=== PATIENT | female | born 1935 | race Caucasian/White ===

== ENCOUNTER 2022-03-19 08:30 | Outpatient (RCR) | payer MEDICARE, SELFPAY ==
[2022-02-26 08:09] VITALS: BP 149/84; PULSE 66; TEMP 36.4
--- NOTE | 2022-02-26 13:48 | HP.PCM_ITS ---
History of Present Illness Date of Service: 02/26/22 Chief Complaint: Ulceration of the left lateral calf History of Wound: This is an 86-year-old female who presents with an ulceration of the left lateral calf. It is located in the left lateral supra-malleolar area. The patient is a resident of [facility] in [place], [place]. She arrived today unaccompanied. She is very pleasant, conversant, and cooperative. However, she suffers from dementia and is somewhat confused. She is a poor historian with respect to her prior health. Fortunately, some records accompany her, sending some light on her past medical history. According the patient, the ulceration on her left lower extremity has been present for approximately 3 weeks. She denies any traumatic events. She states that the ulceration is painful. She claims to sleep on a flat mattress at night. However, she is not very active, and spends a great deal of each day sitting. The accompanying medical records suggest that she has recently undergone a venous duplex examination, and that she is currently being treated with Augmentin. However, this cannot be substantiated. We will seek confirmation. 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 Home Medications Calcium 600 + D(3) See Rx Instructions .ROUTE .COMPLEX 02/26/22 [History Last Taken Unknown] acetaminophen 650 mg PO Q4H PRN 02/26/22 [History Last Taken Unknown] albuterol mcg INHALATION 02/26/22 [History Last Taken Unknown] anastrozole 1 mg PO DAILY 02/26/22 [History Last Taken Unknown] donepezil 10 mg PO QHS 02/26/22 [History Last Taken Unknown] donepezil 10 mg PO QHS 02/26/22 [History Last Taken Unknown] famotidine 20 mg PO BID 02/26/22 [History Last Taken Unknown] ferrous sulfate [FeroSul] 325 mg PO DAILY 02/26/22 [History Last Taken Unknown] fluticasone propion-salmeterol [Advair Diskus] 1 inh INHALATION BID 02/26/22 [History Last Taken Unknown] lovastatin 20 mg PO QPM 02/26/22 [History Last Taken Unknown] metoprolol succinate 25 mg PO DAILY 02/26/22 [History Last Taken Unknown] pramipexole 1 mg PO BID 02/26/22 [History Last Taken Unknown] warfarin 2.5 mg PO DAILY 02/26/22 [History Last Taken Unknown] Vital Signs Vital Signs Vital Signs: 02/26/22 08:09 Temperature 97.6 F L Temperature Source Temporal Pulse Rate 66 Blood Pressure 149/84 H Blood Pressure Mean 105 Blood Pressure Source Monitor Blood Pressure Position Semi-Fowlers Blood Pressure Location Left Arm Physical Exam Const alert, no apparent distress and well nourished Constitutional Narrative: The patient is pleasant, conversant, and cooperative. She is somewhat confused, uncertain as to the date and her place of residence. General Appearance: cooperative, comfortable, well kempt and well developed Orientation / Consciousness: awake and confused Nutritional Appearance: obese HEENT normocephalic, head/scalp atraumatic and hearing grossly normal bilaterally Head and Scalp: normal to inspection, normocephalic and atraumatic External Ear: external ears normal Eyes PERRL and EOMs intact bilaterally General Eye: normal appearance of both eyes Resp normal respiratory effort, normal air movement, no retractions and no use of accessory muscles Effort and Inspection: able to speak in complete sentences Extremity no calf tenderness General Extremity: Negative for clubbing or cyanosis Skin Wound Narrative: Swelling and edema are noted in the lower extremities bilaterally. A clustered ulceration is noted in the left lateral supramalleolar area. The ulceration demonstrates eschar and gangrenous/nonviable tissue, as well as significant bioburden. There is a moderate amount of surrounding erythema. Neuro CN's II-XII intact bilaterally, moves all extremities and no focal motor deficits Psych Appearance: grossly normal and appropriate Attitude: calm Activity / Motor Behavior: appropriate eye contact Speech: normal speech Mood & Affect: euthymic mood Thought Process: normal thought process Thought Content: normal thought content Attention / Concentration: attention grossly intact Debridement Note Debridement Note Wound debrided: Left lateral supramalleolar area Laterality: Left Type of Debridement: Excisional debridement Anesthesia Used: 5% Lidocaine Gel Depth: Down to and including healthy tissue and in the subcutaneous layer Percentage of wound debrided: 100 Instrument Used: 5mm curette Tissue Removed: Bioburden and nonviable/necrotic tissue Severity: Fat Layer Exposed Amount of bleeding with debridement: Mild Bleeding Controlled with: Compression and gauze Patient tolerated procedure: Patient tolerated procedure well Post-Debridement Measurements and Additional Note: Post-Debridement Measurements/Treatment - Nurse 1 - General Ulcer Assessment Start: 02/26/22 08:06 Freq: Status: Active Protocol: WC.LOWEXT Activity Type Activity Date Activity User E-Sign Co-Sign Detail Recorded Client Recorded Date Recorded By Document 02/26/22 08:09 LUIZA [id number] 02/26/22 08:20 KR Document 02/26/22 08:21 KR [id number] 02/26/22 08:25 KR 02/26/22 02/26/22 08:09 08:21 - Today's Visit Information Type of service Initial Visit Arrival Mode Ambulatory, Walker Patient Identification Verified (Name & Yes ) Vital Signs Temperature (97.8 F-99.1 F) 97.6 F L Temperature Source Temporal Pulse Rate (60-100) 66 Pulse Location Monitor Blood Pressure (90/60-120/80) 149/84 H Blood Pressure Mean 105 Source Monitor Position Semi-Fowlers Blood Pressure Location Left Arm History Since Last Visit- (Skip if this is Patient's initial visit) Have you changed medications since your No last visit? Any new allergies or adverse reactions No Had a fall/change in ADL's that may No increase risk of falls Signs or symptoms of abuse and/or No neglect since last visit Have you been in the hospital since your No last visit? Has dressing in place as prescribed No Has compression in place as prescribed N/A Has offloadiing in place as prescribed N/A Left Footwear Regular Shoe Right Footwear Regular Shoe Pain Scale: 0-10 Numeric Is Patient Pain Free? Yes Yes Lower Extremity Assessment/ Foot Assessment/ Toe Nail Assessment Left -Polpliteal Pulses Palpable Yes -Popliteal Doppler Multiphasic -Posterior Tibial Palpable Yes -Posterior Tibial Doppler Multiphasic -Dorsalis Pedis Palpable Yes -Dorsalis Pedis Doppler Multiphasic -Extremity Color Red -Hair Growth on Legs No -Hair Growth on Toes No -Temperature of Extremity Warm -Capillary Refill Less than 3 Seconds -Dependent Rubor No -Blanched when Elevated N/A -Lipodermatosclerosis No -Other Deformity No -Prior Foot Ulcer No -Charcot Joint No -Prior Amputation No -Thick No -Discolored Yes -Deformed No -Improper Length & Hygeine No Neuropathy Assessment Feet - Top Side and Bottom <Entered> (a) (a) 1 - + 2 - patient has diminished feeling 3 - + 4 - + 5 - + 6 - + WC - Nurse 1 - General Ulcer Measurement Start: 02/26/22 08:06 Freq: Status: Active Protocol: Activity Type Activity Date Activity User E-Sign Co-Sign Detail Recorded Client Recorded Date Recorded By Document 02/26/22 08:09 KR [id number] 02/26/22 08:20 KR 02/26/22 08:09 Wound Center Nurse 1 #1 Left Lower Extremity -Current Size (cm) - Length 4.1 -Current Size (cm) - Width 3.5 -Current Size (cm) - Depth 0.1 -Total Square Cm 14.35 -Exudate Amt Large -Exudate Type Yellow/Green -Wound Margin Distinct, Outline Attached -Necrosis Amt Large (67-100%) -Necrotic Tissue Type Adherent Slough -Texture (Sofiya-wound Skin Appearance) Assessed, Scarring -Moisture (Sofiya-wound Skin Appearance) Assessed, Maceration -Color (Sofiya-wound Skin Appearance) No Abnormality, Assessed -Temperature (Sofiya-wound Skin No Abnormality Appearance) (Pt Warm) -Tenderness on Palpation (Sofiya-wound No Skin Appearance) -Ulcer Cleansing Rinsed/ Irrigated with Saline -Foul Odor after Cleansing No -Anesthetic Used 5% Lidocaine Gel Right Calf (cm) 41.5 Right Ankle (cm) 25 Left Calf (cm) 47.3 Left Ankle (cm) 26.6 WC - Nurse 2 - General Ulcer CM Notes Start: 02/26/22 08:06 Freq: Status: Active Protocol: Activity Type Activity Date Activity User E-Sign Co-Sign Detail Recorded Client Recorded Date Recorded By Document 02/26/22 09:07 PL [id number] 02/26/22 09:09 PL 02/26/22 09:07 Wound Center Nurse 2 #1 Left Lower Extremity -Time 08:40 -Correct Patient Yes -Correct Side, Site, Position Yes -Correct Procedure Yes -Procedure Performed Yes -Type of Procedure Debridement -Clinical Debridement Subcutaneous -Tissue Removed Subcutaneous -Post Debridement (cm) - Length 4.1 -Post Debridement (cm) - Width 3.5 -Post Debridement (cm) - Depth 0.1 -Total Square (Post) (cm) 14.35 -Area of Debridement (cm) - Length 4.1 -Area of Debridement (cm) - Width 3.5 -Total Square (Area) (cm) 14.35 -Tunneling No -Undermining/Tunneling No -Circular Undermining No -Wound/Ulcer Outcome Not Healed -Ulcer Cleansing Rinsed/ Irrigated with Saline -Foul Odor after Cleansing No -Bioengineered Tissue No -Bleeding Controlled with Pressure -Treatment Response Procedure Tolerated Well -Debridement - Subq, 1st 20sq cm Yes Pain Scale: 0-10 Numeric Is Patient Pain Free? Yes WC - Nurse 3 - General Ulcer D/C NN Start: 02/26/22 08:06 Freq: Status: Active Protocol: Activity Type Activity Date Activity User E-Sign Co-Sign Detail Recorded Client Recorded Date Recorded By Document 02/26/22 08:58 ML [id number] 02/26/22 09:00 ML 02/26/22 08:58 Wound Care Nurse 3 #1 Left Lower Extremity -Ulcer Cleansing Rinsed/ Irrigated with Saline -Foul Odor after Cleansing No -Negative Pressure Wound Therapy N/A -Other Dressing hydrogel -Primary Dressing Covered/Secured with Dry Gauze & Roll Gauze, Secured with Tape Right -Tubular Bandage Double Layer -Size of Tubigrip Used Size D -Size D ($) 2 Left -Tubular Bandage Double Layer -Size of Tubigrip Used Size D -Size D ($) 2 Pain Scale: 0-10 Numeric Is Patient Pain Free? Yes WC - Visit Discharge Discharge Condition Stable Ambulatory Status Walker Medication Reconcilliation completed & No provided to patient/care provider Clinical Summary of Care Provided Yes Assessment/Plan Assessment/Plan (1) Non-pressure ulcer of left lower extremity: CODE(S): L97.929 - Non-pressure chronic ulcer of unspecified part of left lower leg with unspecified severity (2) Dementia: CODE(S): F03.90 - Unspecified dementia without behavioral disturbance (3) Diabetes mellitus: CODE(S): E11.9 - Type 2 diabetes mellitus without complications (4) History of breast cancer: CODE(S): Z85.3 - Personal history of malignant neoplasm of breast (5) Obesity: CODE(S): E66.9 - Obesity, unspecified (6) Hypertension: CODE(S): I10 - Essential (primary) hypertension (7) Atrial fibrillation: CODE(S): I48.91 - Unspecified atrial fibrillation (8) Chronic anticoagulation: CODE(S): Z79.01 - care home (current) use of anticoagulants (9) COPD (chronic obstructive pulmonary disease): CODE(S): J44.9 - Chronic obstructive pulmonary disease, unspecified (10) Osteoarthritis: CODE(S): M19.90 - Unspecified osteoarthritis, unspecified site (11) Osteoporosis: CODE(S): M81.0 - Age-related osteoporosis without current pathological fracture (12) Pacemaker: CODE(S): Z95.0 - Presence of cardiac pacemaker (13) Hyperlipidemia: CODE(S): E78.5 - Hyperlipidemia, unspecified (14) 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 Its etiology is uncertain, and the patient denies recent trauma to the area. There is noted to be is associated swelling and edema. Patient has pre-existing medical problems, which have been listed above. As initial treatment, patient has been instructed to elevate her lower extremities is much as possible. Elevation is to be to heart level, or higher. This is to be accomplished during sleeping hours, as well as during daytime hours. She has been advised to refrain from prolonged idle sitting. Activity has been encouraged, though enhancement of activity is unlikely to a significant degree, as the patient requires a walker for ambulation. Swab cultures have been obtained for aerobic and anaerobic bacterial growth. We will await the results of these cultures. We are to use collagenase Santyl topically to the ulceration, which will be applied on a daily basis. Compression is to be implemented by means of Tubigrip's, striving for 20 to 30 mmHg compression which will be applied on a daily basis. Patient is to return in 1 week for reassessment. We will consider obtaining laboratory studies and other possible diagnostic tests upon the patient's return visit. Total time: 65 minutes
[2022-03-05 08:42] VITALS: BP 140/61; PULSE 80; TEMP 35.9
--- NOTE | 2022-03-05 09:36 | HP.PCM_ITS ---
History of Present Illness Date of Service: 03/05/22 Chief Complaint: Ulceration of the left lateral calf History of Wound: This is an 86-year-old female who presented with an ulceration of the left lateral calf. It is located in the left lateral supra-malleolar area. The patient is a resident of [facility] in [place], [place]. She is very pleasant, conversant, and cooperative. However, she suffers from dementia and is somewhat confused. She is a poor historian with respect to her prior health. Fortunately, some records accompanied her, revealing elements of her past medical history. According the patient, the ulceration on her left lower extremity had been present for approximately 3 weeks. She denied any traumatic events. She stated that the ulceration was painful. She claims to sleep on a flat mattress at night. However, she is not very active, and spends a great deal of each day sitting. The accompanying medical records suggest that she has recently undergone a venous duplex examination, results of which revealed no evidence of acute deep vein thrombosis, though valvular competence was not assessed. [facility] Medical History (Updated 03/05/22 @ 09:[address] 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 Wound infection Home Medications Calcium 600 + D(3) See Rx Instructions .ROUTE .COMPLEX 02/26/22 [History Last Taken Unknown] acetaminophen 650 mg PO Q4H PRN 02/26/22 [History Last Taken Unknown] albuterol mcg INHALATION 02/26/22 [History Last Taken Unknown] anastrozole 1 mg PO DAILY 02/26/22 [History Last Taken Unknown] donepezil 10 mg PO QHS 02/26/22 [History Last Taken Unknown] donepezil 10 mg PO QHS 02/26/22 [History Last Taken Unknown] famotidine 20 mg PO BID 02/26/22 [History Last Taken Unknown] ferrous sulfate [FeroSul] 325 mg PO DAILY 02/26/22 [History Last Taken Unknown] fluticasone propion-salmeterol [Advair Diskus] 1 inh INHALATION BID 02/26/22 [History Last Taken Unknown] lovastatin 20 mg PO QPM 02/26/22 [History Last Taken Unknown] metoprolol succinate 25 mg PO DAILY 02/26/22 [History Last Taken Unknown] pramipexole 1 mg PO BID 02/26/22 [History Last Taken Unknown] tramadol 50 mg PO Q8H PRN 02/26/22 [History Last Taken Unknown] warfarin 2.5 mg PO DAILY 02/26/22 [History Last Taken Unknown] Vital Signs Vital Signs Vital Signs: 03/05/22 08:42 Temperature 96.7 F L Temperature Source Temporal Pulse Rate 80 Blood Pressure 140/61 H Blood Pressure Mean 87 Blood Pressure Source Monitor Blood Pressure Position Sitting Blood Pressure Location Left Arm Physical Exam Const alert, no apparent distress and well nourished General Appearance: cooperative, comfortable, well kempt and well developed Orientation / Consciousness: awake and confused HEENT normocephalic and head/scalp atraumatic Head and Scalp: normal to inspection, normocephalic and atraumatic External Ear: external ears normal Eyes PERRL and EOMs intact bilaterally General Eye: normal appearance of both eyes Resp normal respiratory effort, normal air movement, no retractions and no use of accessory muscles Effort and Inspection: able to speak in complete sentences Extremity no calf tenderness General Extremity: Negative for clubbing or cyanosis Skin Wound Narrative: The wound on the left lateral supramalleolar area persists. Slight periwound erythema is noted. Dimensions are documented elsewhere. Areas of nonviable tissue persist, though much less than noted at the patient's initial visit. There are areas of pink, healthy granulation tissue. Slight swelling and edema are noted in the patient's left lower extremity. Neuro CN's II-XII intact bilaterally and moves all extremities Sensorium / Orientation: awake and alert Psych Appearance: grossly normal and appropriate Attitude: calm Activity / Motor Behavior: appropriate eye contact Speech: normal speech Mood & Affect: euthymic mood Thought Process: normal thought process Thought Content: normal thought content Attention / Concentration: attention grossly intact Debridement Note Debridement Note Wound debrided: Left lateral supramalleolar area Laterality: Left Type of Debridement: Excisional debridement Anesthesia Used: 5% Lidocaine Gel Depth: Down to and including healthy tissue and in the subcutaneous layer Percentage of wound debrided: 100 Instrument Used: 5mm curette Tissue Removed: Bioburden and nonviable tissue Severity: Fat Layer Exposed Amount of bleeding with debridement: Mild Bleeding Controlled with: Compression and gauze Patient tolerated procedure: Patient tolerated procedure well Post-Debridement Measurements and Additional Note: Post-Debridement Measurements/Treatment WC - Nurse 1 - General Ulcer Assessment Start: 02/26/22 08:06 Freq: Status: Active Protocol: LAKSHMI Activity Type Activity Date Activity User E-Sign Co-Sign Detail Recorded Client Recorded Date Recorded By Document 02/26/22 08:09 KR [id number] 02/26/22 08:20 KR Document 02/26/22 08:21 KR [id number] 02/26/22 08:25 KR Document 03/05/22 08:42 KR [id number] 03/05/22 08:44 KR 02/26/22 02/26/22 03/05/22 08:09 08:21 08:42 - Today's Visit Information Type of service Initial Visit Follow-up Visit (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 Any new allergies or adverse reactions No No Had a fall/change in ADL's that may No No increase risk of falls Signs or symptoms of abuse and/or No No neglect since last visit Have you been in the hospital since your No No last visit? Has dressing in place as prescribed No No Has compression in place as prescribed N/A N/A Has offloadiing in place as prescribed N/A N/A Experienced any changes in pain level or No management Left Footwear Regular Shoe Regular Shoe Right Footwear Regular Shoe Regular Shoe Pain Scale: 0-10 Numeric Is Patient Pain Free? Yes Yes Yes Lower Extremity Assessment/ Foot Assessment/ Toe Nail Assessment Left -Polpliteal Pulses Palpable Yes -Popliteal Doppler Multiphasic -Posterior Tibial Palpable Yes -Posterior Tibial Doppler Multiphasic -Dorsalis Pedis Palpable Yes -Dorsalis Pedis Doppler Multiphasic -Extremity Color Red -Hair Growth on Legs No -Hair Growth on Toes No -Temperature of Extremity Warm -Capillary Refill Less than 3 Seconds -Dependent Rubor No -Blanched when Elevated N/A -Lipodermatosclerosis No -Other Deformity No -Prior Foot Ulcer No -Charcot Joint No -Prior Amputation No -Thick No -Discolored Yes -Deformed No -Improper Length & Hygeine No Neuropathy Assessment Feet - Top Side and Bottom <Entered> (a) (a) 1 - + 2 - patient has diminished feeling 3 - + 4 - + 5 - + 6 - + WC - Nurse 1 - General Ulcer Measurement Start: 02/26/22 08:06 Freq: Status: Active Protocol: Activity Type Activity Date Activity User E-Sign Co-Sign Detail Recorded Client Recorded Date Recorded By Document 02/26/22 08:09 LUIZA [id number] 02/26/22 08:20 KR Document 03/05/22 08:42 KR [id number] 03/05/22 08:44 KR 02/26/22 03/05/22 08:09 08:42 Wound Center Nurse 1 #1 Left Lower Extremity -Current Size (cm) - Length 4.1 4.6 -Current Size (cm) - Width 3.5 4.3 -Current Size (cm) - Depth 0.1 0.2 -Total Square Cm 14.35 19.78 -Exudate Amt Large Medium -Exudate Type Yellow/Green Serosanguineous -Wound Margin Distinct, Distinct, Outline Outline Attached Attached -Granulation Amt Medium (34-66%) -Granulation Quality Red -Necrosis Amt Large (67-100%) Small (1-33%) -Necrotic Tissue Type Adherent Slough Adherent Slough -Texture (Sofiya-wound Skin Appearance) Assessed, Assessed, Scarring Scarring -Moisture (Sofiya-wound Skin Appearance) Assessed, No Abnormality, Maceration Assessed -Color (Sofiya-wound Skin Appearance) No Abnormality, No Abnormality, Assessed Assessed -Temperature (Sofiya-wound Skin No Abnormality No Abnormality Appearance) (Pt Warm) (Pt Warm) -Tenderness on Palpation (Sofiya-wound No Skin Appearance) -Ulcer Cleansing Rinsed/ Rinsed/ Irrigated with Irrigated with Saline Saline -Foul Odor after Cleansing No -Anesthetic Used 5% Lidocaine 4% Lidocaine Gel Solution,5% Lidocaine Gel Right Calf (cm) 41.5 Right Ankle (cm) 25 Left Calf (cm) 47.3 Left Ankle (cm) 26.6 WC - Nurse 2 - General Ulcer CM Notes Start: 02/26/22 08:06 Freq: Status: Active Protocol: Activity Type Activity Date Activity User E-Sign Co-Sign Detail Recorded Client Recorded Date Recorded By Document 02/26/22 09:07 PL [id number] 02/26/22 09:09 PL 02/26/22 09:07 Wound Center Nurse 2 -Time 08:40 -Correct Patient Yes -Correct Side, Site, Position Yes -Correct Procedure Yes -Procedure Performed Yes -Type of Procedure Debridement -Clinical Debridement Subcutaneous -Tissue Removed Subcutaneous -Post Debridement (cm) - Length 4.1 -Post Debridement (cm) - Width 3.5 -Post Debridement (cm) - Depth 0.1 -Total Square (Post) (cm) 14.35 -Area of Debridement (cm) - Length 4.1 -Area of Debridement (cm) - Width 3.5 -Total Square (Area) (cm) 14.35 -Tunneling No -Undermining/Tunneling No -Circular Undermining No -Wound/Ulcer Outcome Not Healed -Ulcer Cleansing Rinsed/ Irrigated with Saline -Foul Odor after Cleansing No -Bioengineered Tissue No -Bleeding Controlled with Pressure -Treatment Response Procedure Tolerated Well -Debridement - Subq, 1st 20sq cm Yes Pain Scale: 0-10 Numeric Is Patient Pain Free? Yes - Nurse 3 - General Ulcer D/C NN Start: 02/26/22 08:06 Freq: Status: Active Protocol: Activity Type Activity Date Activity User E-Sign Co-Sign Detail Recorded Client Recorded Date Recorded By Document 02/26/22 08:58 ML [id number] 02/26/22 09:00 ML 02/26/22 08:58 Wound Care Nurse 3 #1 Left Lower Extremity -Ulcer Cleansing Rinsed/ Irrigated with Saline -Foul Odor after Cleansing No -Negative Pressure Wound Therapy N/A -Other Dressing hydrogel -Primary Dressing Covered/Secured with Dry Gauze & Roll Gauze, Secured with Tape Right -Tubular Bandage Double Layer -Size of Tubigrip Used Size D -Size D ($) 2 Left -Tubular Bandage Double Layer -Size of Tubigrip Used Size D -Size D ($) 2 Pain Scale: 0-10 Numeric Is Patient Pain Free? Yes WC - Visit Discharge Discharge Condition Stable Ambulatory Status Walker Medication Reconcilliation completed & No provided to patient/care provider Clinical Summary of Care Provided Yes Lab / Micro Data Micro: Microbiology 02/26/22 08:50 Wound Abcess - Leg, Left Gram Stain - Final 02/26/22 08:50 Wound Abcess - Leg, Left Wound Culture - Final Proteus mirabilis Enterococcus faecalis 02/26/22 08:50 Wound Abcess - Leg, Left Anaerobic Culture - Preliminary Checking for anaerobes, further studies to follow. 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: CODE(S): Z96.653 - Presence of artificial knee joint, bilateral (4) Hyperlipidemia: CODE(S): E78.5 - Hyperlipidemia, unspecified (5) Pacemaker: CODE(S): Z95.0 - Presence of cardiac pacemaker (6) Osteoporosis: CODE(S): M81.0 - Age-related osteoporosis without current pathological fracture (7) Osteoarthritis: CODE(S): M19.90 - Unspecified osteoarthritis, unspecified site (8) COPD (chronic obstructive pulmonary disease): CODE(S): J44.9 - Chronic obstructive pulmonary disease, unspecified (9) Chronic anticoagulation: CODE(S): Z79.01 - jail (current) use of anticoagulants (10) Atrial fibrillation: CODE(S): I48.91 - Unspecified atrial fibrillation (11) Hypertension: CODE(S): I10 - Essential (primary) hypertension (12) Obesity: CODE(S): E66.9 - Obesity, unspecified (13) History of breast cancer: CODE(S): Z85.3 - Personal history of malignant neoplasm of breast (14) Diabetes mellitus: CODE(S): E11.9 - Type 2 diabetes mellitus without complications (15) Dementia: CODE(S): F03.90 - Unspecified dementia without behavioral disturbance PLAN: This is an 86-year-old female who presented with an ulceration on the left lateral supramalleolar area. Its etiology is uncertain, and the patient denies recent trauma to the area. There is noted to be is associated swelling and edema. The patient has pre-existing medical problems, which have been listed above. The patient has been instructed to elevate her lower extremities is much as possible. Elevation is to be to heart level, or higher. This is to be accomplished during sleeping hours, as well as during daytime hours. She has been advised to refrain from prolonged idle sitting. Activity has been encouraged, though enhancement of activity is unlikely to a significant degree, as the patient requires a walker for ambulation. Swab cultures have been obtained for aerobic and anaerobic bacterial growth. Cultures have been positive for Proteus mirabilis and Enterococcus faecalis. The patient has been started on Augmentin 875 mg p.o. every 12 hours for 7 days, and is currently in the midst of her prescription. Her clinical response will be monitored. We are to continue with the use of collagenase Santyl topically to the ulceration, which will be applied on a daily basis. Compression is to be continued by means of Tubigrip's, striving for 20 to 30 mmHg compression which will be applied on a daily basis. The patient is to return in 1 week for reassessment. We will obtain laboratory studies, including a CBC, comprehensive metabolic profile, and a serum prealbumin to assess constitutional factors which may affect wound healing. The patient has been encouraged to assure adequate oral nutritional intake. Total time: 29 minutes
[2022-03-12 08:27] VITALS: BP 137/79; PULSE 88; RESP 20; TEMP 36.6
--- NOTE | 2022-03-12 09:06 | HP.PCM_ITS ---
History of Present Illness Date of Service: 03/12/22 Chief Complaint: Ulceration of the left lateral calf History of Wound: This is an 86-year-old female who presented with an ulceration of the left lateral calf. It is located in the left lateral supra-malleolar area. The patient is a resident of [facility] in [place], [place]. She is very pleasant, conversant, and cooperative. However, she suffers from dementia and is somewhat confused. She is a poor historian with r espect to her prior health. Fortunately, some records accompanied her, revealing elements of her past medical history. According the patient, the ulceration on her left lower extremity had been present for approximately 3 weeks. She denied any traumatic events. She stated that the ulceration was painful. She claims to sleep on a flat mattress at night. However, she is not very active, and spends a great deal of each day sitting. The accompanying medical records suggest that she has recently undergone a venous duplex examination, results of which revealed no evidence of acute deep vein t hrombosis, though valvular competence was not assessed. [facility] Medical History (Updated 03/05/22 @ 09:[address] 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 Wound infection Home Medications Calcium 600 + D(3) See Rx Instructions .Route .COMPLEX 02/26/22 [History Last Taken Unknown] acetaminophen 650 mg tablet 650 mg PO Q4H PRN Pain 02/26/22 [History Last Taken Unknown] albuterol 90 mcg/actuation aerosol inhaler mcg inhalation 02/26/22 [History Last Taken Unknown] anastrozole 1 mg tablet 1 mg PO DAILY 02/26/22 [History Last Taken Unknown] donepezil 10 mg tablet 10 mg PO QHS 02/26/22 [History Last Taken Unknown] donepezil 10 mg tablet 10 mg PO QHS 02/26/22 [History Last Taken Unknown] famotidine 20 mg tablet 20 mg PO BID 02/26/22 [History Last Taken Unknown] ferrous sulfate 325 mg (65 mg iron) tablet (FeroSul) 325 mg PO DAILY 02/26/22 [History Last Taken Unknown] fluticasone 100 mcg-salmeterol 50 mcg/dose blistr powdr for inhalation (Advair Diskus) 1 inh inhalation BID 02/26/22 [History Last Taken Unknown] lovastatin 20 mg tablet 20 mg PO QPM 02/26/22 [History Last Taken Unknown] metoprolol succinate 25 mg capsule sprinkle, ext. release 24 hr 25 mg PO DAILY 02/26/22 [History Last Taken Unknown] pramipexole 1 mg tablet 1 mg PO BID 02/26/22 [History Last Taken Unknown] tramadol 50 mg tablet 50 mg PO Q8H PRN Pain 02/26/22 [History Last Taken Unknown] warfarin 2.5 mg tablet 2.5 mg PO DAILY 02/26/22 [History Last Taken Unknown] Vital Signs Vital Signs Vital Signs: 03/12/22 08:27 Temperature 97.8 F Temperature Source Temporal Pulse Rate 88 Respiratory Rate 20 H Blood Pressure 137/79 H Blood Pressure Mean 98 Blood Pressure Source Monitor Blood Pressure Position Sitting Blood Pressure Location Right Arm Physical Exam Const alert, no apparent distress and well nourished General Appearance: cooperative, comfortable, well kempt and well developed Orientation / Consciousness: awake and confused HEENT normocephalic and head/scalp atraumatic Head and Scalp: normal to inspection, normocephalic and atraumatic External Ear: external ears normal Eyes PERRL and EOMs intact bilaterally General Eye: normal appearance of both eyes Resp normal respiratory effort, normal air movement, no retractions and no use of accessory muscles Effort and Inspection: able to speak in complete sentences Extremity no calf tenderness General Extremity: Negative for clubbing or cyanosis Skin Wound Narrative: The wound on the left lateral supramalleolar area persists. Periwound erythema is noted. Dimensions are documented elsewhere. Areas of nonviable tissue persist. Slight swelling and edema are noted in the patient's left lower extremity. Neuro CN's II-XII intact bilaterally and moves all extremities Sensorium / Orientation: awake and alert Psych Appearance: grossly normal and appropriate Attitude: calm Activity / Motor Behavior: appropriate eye contact Speech: normal speech Mood & Affect: euthymic mood Thought Process: normal thought process Thought Content: normal thought content Attention / Concentration: attention grossly intact Debridement Note Debridement Note Wound debrided: Left lateral supramalleolar area Laterality: Left Type of Debridement: Excisional debridement Anesthesia Used: 5% Lidocaine Gel Depth: Down to and including healthy tissue and in the subcutaneous layer Percentage of wound debrided: 100 Instrument Used: 5mm curette, #15 blade and Forceps Tissue Removed: Bioburden and nonviable tissue Severity: Fat Layer Exposed Amount of bleeding with debridement: Mild Bleeding Controlled with: Compression and gauze Patient tolerated procedure: Patient tolerated procedure well Post-Debridement Measurements and Additional Note: Post-Debridement Measurements/Treatment WC - Nurse 1 - General Ulcer Assessment Start: 02/26/22 08:06 Freq: Status: Active Protocol: LAKSHMI Activity Type Activity Date Activity User E-sign Co-sign Detail Recorded Client Recorded Date Recorded By Document 02/26/22 08:09 KR [id number] 02/26/22 08:20 KR Document 02/26/22 08:21 KR [id number] 02/26/22 08:25 KR Document 03/05/22 08:42 KR [id number] 03/05/22 08:44 KR Document 03/12/22 08:27 DL [id number] 03/12/22 08:42 DL 02/26/22 02/26/22 03/05/22 08:09 08:21 08:42 - Today's Visit Information Type of service Initial Visit Follow-up Visit (Physician/M1A1 [employer] ) Arrival Mode Ambulatory, Walker Walker Patient Identification Verified (Name & Yes Yes ) Vital Signs Temperature (97.8 F-99.1 F) 97.6 F L 96.7 F L Temperature Source Temporal Temporal Pulse Rate (60-100) 66 80 Pulse Location Monitor Monitor Respiratory Rate (12-18) Respiratory rate source Blood Pressure (90/60-120/80) 149/84 H 140/61 H Blood Pressure Mean 105 87 Source Monitor Monitor Position Semi-Fowlers Sitting Blood Pressure Location Left Arm Left Arm History Since Last Visit- (Skip if this is Patient's initial visit) Have you changed medications since your No No last visit? Any new allergies or adverse reactions No No Had a fall/change in ADL's that may No No increase risk of falls Signs or symptoms of abuse and/or No No neglect since last visit Have you been in the hospital since your No No last visit? Has dressing in place as prescribed No No Has compression in place as prescribed N/A N/A Has offloadiing in place as prescribed N/A N/A Experienced any changes in pain level or No management Left Footwear Regular Shoe Regular Shoe Right Footwear Regular Shoe Regular Shoe Pain Scale: 0-10 Numeric Is Patient Pain Free? Yes Yes Yes Lower Extremity Assessment/ Foot Assessment/ Toe Nail Assessment Left -Polpliteal Pulses Palpable Yes -Popliteal Doppler Multiphasic -Posterior Tibial Palpable Yes -Posterior Tibial Doppler Multiphasic -Dorsalis Pedis Palpable Yes -Dorsalis Pedis Doppler Multiphasic -Extremity Color Red -Hair Growth on Legs No -Hair Growth on Toes No -Temperature of Extremity Warm -Capillary Refill Less than 3 Seconds -Dependent Rubor No -Blanched when Elevated N/A -Lipodermatosclerosis No -Other Deformity No -Prior Foot Ulcer No -Charcot Joint No -Prior Amputation No -Thick No -Discolored Yes -Deformed No -Improper Length & Hygeine No Neuropathy Assessment Feet - Top Side and Bottom <Entered> (a) 03/12/22 08:27 WC - Today's Visit Information Type of service Follow-up Visit (Physician/M1A1 [employer] ) Arrival Mode Ambulatory Patient Identification Verified (Name & Yes ) Vital Signs Temperature (97.8 F-99.1 F) 97.8 F Temperature Source Temporal Pulse Rate (60-100) 88 Pulse Location Monitor Respiratory Rate (12-18) 20 H Respiratory rate source Observation Blood Pressure (90/60-120/80) 137/79 H Blood Pressure Mean 98 Source Monitor Position Sitting Blood Pressure Location Right Arm History Since Last Visit- (Skip if this is Patient's initial visit) Have you changed medications since your No last visit? Any new allergies or adverse reactions No Had a fall/change in ADL's that may No increase risk of falls Signs or symptoms of abuse and/or No neglect since last visit Have you been in the hospital since your No last visit? Has dressing in place as prescribed Yes Has compression in place as prescribed Yes Has offloadiing in place as prescribed N/A Experienced any changes in pain level or No management Left Footwear Regular Shoe Right Footwear Regular Shoe Pain Scale: 0-10 Numeric Is Patient Pain Free? Yes Lower Extremity Assessment/ Foot Assessment/ Toe Nail Assessment Left -Polpliteal Pulses Palpable -Popliteal Doppler -Posterior Tibial Palpable -Posterior Tibial Doppler -Dorsalis Pedis Palpable -Dorsalis Pedis Doppler -Extremity Color -Hair Growth on Legs -Hair Growth on Toes -Temperature of Extremity -Capillary Refill -Dependent Rubor -Blanched when Elevated -Lipodermatosclerosis -Other Deformity -Prior Foot Ulcer -Charcot Joint -Prior Amputation -Thick -Discolored -Deformed -Improper Length & Hygeine Neuropathy Assessment Feet - Top Side and Bottom (a) 1 - + 2 - patient has diminished feeling 3 - + 4 - + 5 - + 6 - + WC - Nurse 1 - General Ulcer Measurement Start: 02/26/22 08:06 Freq: Status: Active Protocol: Activity Type Activity Date Activity User E-sign Co-sign Detail Recorded Client Recorded Date Recorded By Document 02/26/22 08:09 KR [id number] 02/26/22 08:20 KR Document 03/05/22 08:42 KR [id number] 03/05/22 08:44 KR Document 03/12/22 08:27 DL [id number] 03/12/22 08:42 DL 02/26/22 03/05/22 03/12/22 08:09 08:42 08:27 Wound Center Nurse 1 #1 Left Lower Extremity -Current Size (cm) - Length 4.1 4.6 4.7 -Current Size (cm) - Width 3.5 4.3 4.6 -Current Size (cm) - Depth 0.1 0.2 0.1 -Total Square Cm 14.35 19.78 21.62 -Photo Taken No -Exudate Amt Large Medium Medium -Exudate Type Yellow/Green Serosanguineous Serosanguineous -Wound Margin Distinct, Distinct, Distinct, Outline Outline Outline Attached Attached Attached -Granulation Amt Medium (34-66%) None Present (0 %) -Granulation Quality Red -Necrosis Amt Large (67-100%) Small (1-33%) Large (67-100%) -Necrotic Tissue Type Adherent Slough Adherent Slough Adherent Slough -Structure Exposed N/A -Texture (Sofiya-wound Skin Appearance) Assessed, Assessed, Localized Edema Scarring Scarring ,Scarring -Moisture (Sofiya-wound Skin Appearance) Assessed, No Abnormality, Dry/Scaly Maceration Assessed -Color (Sofiya-wound Skin Appearance) No Abnormality, No Abnormality, Erythema Assessed Assessed -Temperature (Sofiya-wound Skin No Abnormality No Abnormality No Abnormality Appearance) (Pt Warm) (Pt Warm) (Pt Warm) -Tenderness on Palpation (Sofiya-wound No No Skin Appearance) -Ulcer Cleansing Rinsed/ Rinsed/ Rinsed/ Irrigated with Irrigated with Irrigated with Saline Saline Saline -Foul Odor after Cleansing No No -Anesthetic Used 5% Lidocaine 4% Lidocaine 5% Lidocaine Gel Solution,5% Gel Lidocaine Gel Right Calf (cm) 41.5 Right Ankle (cm) 25 Left Calf (cm) 47.3 45 Left Ankle (cm) 26.6 24.3 - Nurse 2 - General Ulcer CM Notes Start: 02/26/22 08:06 Freq: Status: Active Protocol: Activity Type Activity Date Activity User E-sign Co-sign Detail Recorded Client Recorded Date Recorded By Document 02/26/22 09:07 PL [id number] 02/26/22 09:09 PL Document 03/05/22 11:14 PL [id number] 03/05/22 11:15 PL 02/26/22 03/05/22 09:07 11:14 Wound Center Nurse 2 #1 Left Lower Extremity -Time 08:40 09:20 -Correct Patient Yes Yes -Correct Side, Site, Position Yes Yes -Correct Procedure Yes Yes -Procedure Performed Yes Yes -Type of Procedure Debridement Debridement -Clinical Debridement Subcutaneous Subcutaneous -Tissue Removed Subcutaneous Subcutaneous -Post Debridement (cm) - Length 4.1 3.4 -Post Debridement (cm) - Width 3.5 1.4 -Post Debridement (cm) - Depth 0.1 0.1 -Total Square (Post) (cm) 14.35 4.76 -Area of Debridement (cm) - Length 4.1 3.4 -Area of Debridement (cm) - Width 3.5 1.4 -Total Square (Area) (cm) 14.35 4.76 -Tunneling No No -Undermining/Tunneling No No -Circular Undermining No No -Wound/Ulcer Outcome Not Healed Not Healed -Ulcer Cleansing Rinsed/ Rinsed/ Irrigated with Irrigated with Saline Saline -Foul Odor after Cleansing No No -Bioengineered Tissue No No -Bleeding Controlled with Pressure Pressure -Treatment Response Procedure Procedure Tolerated Well Tolerated Well -Debridement - Subq, 1st 20sq cm Yes Yes Pain Scale: 0-10 Numeric Is Patient Pain Free? Yes Yes - Nurse 3 - General Ulcer D/C NN Start: 02/26/22 08:06 Freq: Status: Active Protocol: Activity Type Activity Date Activity User E-sign Co-sign Detail Recorded Client Recorded Date Recorded By Document 02/26/22 08:58 ML [id number] 02/26/22 09:00 ML Document 03/05/22 11:31 PL [id number] 03/05/22 11:33 PL 02/26/22 03/05/22 08:58 11:31 Wound Care Nurse 3 #1 Left Lower Extremity -Ulcer Cleansing Rinsed/ Soap and Water Irrigated with Saline -Foul Odor after Cleansing No No -Negative Pressure Wound Therapy N/A -Other Dressing hydrogel Hydrogel -Primary Dressing Covered/Secured with Dry Gauze & Dry Gauze & Roll Gauze, Roll Gauze, Secured with Secured with Tape Tape Right -Tubular Bandage Double Layer -Size of Tubigrip Used Size D -Size D ($) 2 Left -Tubular Bandage Double Layer Single Layer -Size of Tubigrip Used Size D Size D -Size D ($) 2 1 Pain Scale: 0-10 Numeric Is Patient Pain Free? 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: CODE(S): Z96.653 - Presence of artificial knee joint, bilateral (4) Hyperlipidemia: CODE(S): E78.5 - Hyperlipidemia, unspecified (5) Pacemaker: CODE(S): Z95.0 - Presence of cardiac pacemaker (6) Osteoporosis: CODE(S): M81.0 - Age-related osteoporosis without current pathological fracture (7) Osteoarthritis: CODE(S): M19.90 - Unspecified osteoarthritis, unspecified site (8) COPD (chronic obstructive pulmonary disease): CODE(S): J44.9 - Chronic obstructive pulmonary disease, unspecified (9) Chronic anticoagulation: CODE(S): Z79.01 - senior living (current) use of anticoagulants (10) Atrial fibrillation: CODE(S): I48.91 - Unspecified atrial fibrillation (11) Hypertension: CODE(S): I10 - Essential (primary) hypertension (12) Obesity: CODE(S): E66.9 - Obesity, unspecified (13) History of breast cancer: CODE(S): Z85.3 - Personal history of malignant neoplasm of breast (14) Diabetes mellitus: CODE(S): E11.9 - Type 2 diabetes mellitus without complications (15) Dementia: CODE(S): F03.90 - Unspecified dementia without behavioral disturbance PLAN: Plan This is an 86-year-old female who presented with an ulceration on the left lateral supramalleolar area. Its etiology is uncertain, and the patient denies recent trauma to the area. There is noted to be is associated swelling and edema. The patient has pre-existing medical problems, which have been listed above. The patient has been instructed to elevate her lower extremities is much as possible. Elevation is to be to heart level, or higher. This is to be accomplished during sleeping hours, as well as during daytime hours. She has been advised to refrain from prolonged idle sitting. Activity has been encouraged, though enhancement of activity is unlikely to a significant degree, as the patient requires a walker for ambulation. Swab cultures were obtained for aerobic and anaerobic bacterial growth. Cultures have been positive for Proteus mirabilis and Enterococcus faecalis. The patient has been started on Augmentin 875 mg p.o. every 12 hours for 7 days, which has now been completed. She presents today with significant periwound erythema, and swab cultures have again been obtained for both aerobic and anaerobic bacterial growth. We will await culture results. We are to transition to the use of Dakin's 0.25% solution, which will be used to moisten gauze, and applied topically to the wound on a daily basis. Compression is to be continued by means of Tubigrip's, striving for 20 to 30 mmHg compression which will be applied on a daily basis. The patient is to return in 1 week for reassessment. Laboratory results have been now obtained, with results as follows: Glucose 84, sodium 139, potassium 4.0, chloride 99, BUN 11, creatinine 0.58, calcium 9.2, albumin 3.8, total protein 6.4, AST 17, ALT 14, white blood count 5.8, hemoglobin 13.2, hematocrit 39.8, platelets 209,000. These laboratory results are from March 06, 2022. The patient has been encouraged to assure adequate oral nutritional intake. Total time: 28 minutes
[2022-03-19 08:49] VITALS: BP 139/85; PULSE 88; RESP 20; TEMP 36.4
--- NOTE | 2022-03-19 09:10 | PCM.WC.HP ---
History of Present Illness Date of Service: 03/19/22 Chief Complaint: Ulceration of the left lateral calf History of Wound: This is an 86-year-old female who presented with an ulceration of the left lateral calf. It is located in the left lateral supra-malleolar area. The patient is a resident of [facility] in [place], [place]. She is very pleasant, conversant, and cooperative. However, she suffers from dementia and is somewhat confused. She is a poor historian with respect to her prior health. Fortunately, some records accompanied her, revealing elements of her past medical history. According the patient, the ulceration on her left lower extremity had been present for approximately 3 weeks. She denied any traumatic events. She stated that the ulceration was painful. She claims to sleep on a flat mattress at night. However, she is not very active, and spends a great deal of each day sitting. The accompanying medical records suggest that she has recently undergone a venous duplex examination, results of which revealed no evidence of acute deep vein thrombosis, though valvular competence was not assessed. 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 Wound infection Home Medications Calcium 600 + D(3) See Rx Instructions .Route .COMPLEX 02/26/22 [History Last Taken Unknown] acetaminophen 650 mg tablet 650 mg PO Q4H PRN Pain 02/26/22 [History Last Taken Unknown] albuterol 90 mcg/actuation aerosol inhaler mcg inhalation 02/26/22 [History Last Taken Unknown] anastrozole 1 mg tablet 1 mg PO DAILY 02/26/22 [History Last Taken Unknown] donepezil 10 mg tablet 10 mg PO QHS 02/26/22 [History Last Taken Unknown] donepezil 10 mg tablet 10 mg PO QHS 02/26/22 [History Last Taken Unknown] famotidine 20 mg tablet 20 mg PO BID 02/26/22 [History Last Taken Unknown] ferrous sulfate 325 mg (65 mg iron) tablet (FeroSul) 325 mg PO DAILY 02/26/22 [History Last Taken Unknown] fluticasone 100 mcg-salmeterol 50 mcg/dose blistr powdr for inhalation (Advair Diskus) 1 inh inhalation BID 02/26/22 [History Last Taken Unknown] lovastatin 20 mg tablet 20 mg PO QPM 02/26/22 [History Last Taken Unknown] metoprolol succinate 25 mg capsule sprinkle, ext. release 24 hr 25 mg PO DAILY 02/26/22 [History Last Taken Unknown] pramipexole 1 mg tablet 1 mg PO BID 02/26/22 [History Last Taken Unknown] tramadol 50 mg tablet 50 mg PO Q8H PRN Pain 02/26/22 [History Last Taken Unknown] warfarin 2.5 mg tablet 2.5 mg PO DAILY 02/26/22 [History Last Taken Unknown] Vital Signs Vital Signs Vital Signs: 03/19/22 08:49 Temperature 97.5 F L Temperature Source Temporal Pulse Rate 88 Respiratory Rate 20 H Blood Pressure 139/85 H Blood Pressure Mean 103 Blood Pressure Source Monitor Physical Exam Const alert, no apparent distress and well nourished Constitutional Narrative: The patient is more lucid today than previous visits. General Appearance: cooperative, comfortable, well kempt and well developed Orientation / Consciousness: awake and confused HEENT normocephalic and head/scalp atraumatic Head and Scalp: normal to inspection, normocephalic and atraumatic External Ear: external ears normal Eyes PERRL and EOMs intact bilaterally General Eye: normal appearance of both eyes Resp normal respiratory effort, normal air movement, no retractions and no use of accessory muscles Effort and Inspection: able to speak in complete sentences Extremity no calf tenderness General Extremity: Negative for clubbing or cyanosis Skin Wound Narrative: The wound on the left lateral supramalleolar area persists. Less periwound erythema is noted than last week. Dimensions are documented elsewhere. Yellowish, nonviable tissue persists within the wound, as well as bioburden. Slight swelling and edema are noted in the patient's left lower extremity. Neuro CN's II-XII intact bilaterally and moves all extremities Sensorium / Orientation: awake and alert Psych Appearance: grossly normal and appropriate Attitude: calm Activity / Motor Behavior: appropriate eye contact Speech: normal speech Mood & Affect: euthymic mood Thought Process: normal thought process Thought Content: normal thought content Attention / Concentration: attention grossly intact Debridement Note Debridement Note Wound debrided: Left lateral calf, supramalleolar region Laterality: Left Type of Debridement: Excisional debridement Anesthesia Used: 5% Lidocaine Gel and Cetacaine Depth: Down to and including healthy tissue and in the subcutaneous layer Percentage of wound debrided: 100 Instrument Used: 5mm curette Severity: Fat Layer Exposed Amount of bleeding with debridement: Mild Bleeding Controlled with: Compression and gauze Patient tolerated procedure: Patient tolerated procedure well Post-Debridement Measurements and Additional Note: Post-Debridement Measurements/Treatment - Nurse 1 - General Ulcer Assessment Start: 02/26/22 08:06 Freq: Status: Active Protocol: LAKSHMI Activity Type Activity Date Activity User E-sign Co-sign Detail Recorded Client Recorded Date Recorded By Document 02/26/22 08:09 KR [id number] 02/26/22 08:20 KR Document 02/26/22 08:21 KR [id number] 02/26/22 08:25 KR Document 03/05/22 08:42 KR [id number] 03/05/22 08:44 KR Document 03/12/22 08:27 DL [id number] 03/12/22 08:42 DL Document 03/19/22 08:49 DL [id number] 03/19/22 08:59 DL 02/26/22 02/26/22 03/05/22 08:09 08:21 08:42 - Today's Visit Information Type of service Initial Visit Follow-up Visit (Physician/RESIDENTIAL FINISH CARPENTER ) Arrival Mode Ambulatory, Walker Walker Transfer Assistance Patient Identification Verified (Name & Yes Yes ) Patient Requires Transmission-Based Precautions Vital Signs Temperature (97.8 F-99.1 F) 97.6 F L 96.7 F L Temperature Source Temporal Temporal Pulse Rate (60-100) 66 80 Pulse Location Monitor Monitor Respiratory Rate (12-18) Respiratory rate source Blood Pressure (90/60-120/80) 149/84 H 140/61 H Blood Pressure Mean 105 87 Source Monitor Monitor Position Semi-Fowlers Sitting Blood Pressure Location Left Arm Left Arm History Since Last Visit- (Skip if this is Patient's initial visit) Have you changed medications since your No No last visit? Any new allergies or adverse reactions No No Had a fall/change in ADL's that may No No increase risk of falls Signs or symptoms of abuse and/or No No neglect since last visit Have you been in the hospital since your No No last visit? Has dressing in place as prescribed No No Has compression in place as prescribed N/A N/A Has offloadiing in place as prescribed N/A N/A Experienced any changes in pain level or No management Left Footwear Regular Shoe Regular Shoe Right Footwear Regular Shoe Regular Shoe Pain Scale: 0-10 Numeric Is Patient Pain Free? Yes Yes Yes Lower Extremity Assessment/ Foot Assessment/ Toe Nail Assessment Left -Polpliteal Pulses Palpable Yes -Popliteal Doppler Multiphasic -Posterior Tibial Palpable Yes -Posterior Tibial Doppler Multiphasic -Dorsalis Pedis Palpable Yes -Dorsalis Pedis Doppler Multiphasic -Extremity Color Red -Hair Growth on Legs No -Hair Growth on Toes No -Temperature of Extremity Warm -Capillary Refill Less than 3 Seconds -Dependent Rubor No -Blanched when Elevated N/A -Lipodermatosclerosis No -Other Deformity No -Prior Foot Ulcer No -Charcot Joint No -Prior Amputation No -Thick No -Discolored Yes -Deformed No -Improper Length & Hygeine No Neuropathy Assessment Feet - Top Side and Bottom <Entered> (a) 03/12/22 03/19/22 08:27 08:49 WC - Today's Visit Information Type of service Follow-up Visit Follow-up Visit (Physician/RESIDENTIAL FINISH CARPENTER (Physician/RESIDENTIAL FINISH CARPENTER ) ) Arrival Mode Ambulatory Ambulatory, Walker Transfer Assistance None Patient Identification Verified (Name & Yes Yes ) Patient Requires Transmission-Based No Precautions Vital Signs Temperature (97.8 F-99.1 F) 97.8 F 97.5 F L Temperature Source Temporal Temporal Pulse Rate (60-100) 88 88 Pulse Location Monitor Monitor Respiratory Rate (12-18) 20 H 20 H Respiratory rate source Observation Observation Blood Pressure (90/60-120/80) 137/79 H 139/85 H Blood Pressure Mean 98 103 Source Monitor Monitor Position Sitting Blood Pressure Location Right Arm History Since Last Visit- (Skip if this is Patient's initial visit) Have you changed medications since your No No last visit? Any new allergies or adverse reactions No No Had a fall/change in ADL's that may No No increase risk of falls Signs or symptoms of abuse and/or No No neglect since last visit Have you been in the hospital since your No No last visit? Has dressing in place as prescribed Yes Yes Has compression in place as prescribed Yes No Has offloadiing in place as prescribed N/A N/A Experienced any changes in pain level or No No management Left Footwear Regular Shoe Right Footwear Regular Shoe Regular Shoe Pain Scale: 0-10 Numeric Is Patient Pain Free? Yes Yes Lower Extremity Assessment/ Foot Assessment/ Toe Nail Assessment Left -Polpliteal Pulses Palpable -Popliteal Doppler -Posterior Tibial Palpable -Posterior Tibial Doppler -Dorsalis Pedis Palpable -Dorsalis Pedis Doppler -Extremity Color -Hair Growth on Legs -Hair Growth on Toes -Temperature of Extremity -Capillary Refill -Dependent Rubor -Blanched when Elevated -Lipodermatosclerosis -Other Deformity -Prior Foot Ulcer -Charcot Joint -Prior Amputation -Thick -Discolored -Deformed -Improper Length & Hygeine Neuropathy Assessment Feet - Top Side and Bottom (a) 1 - + 2 - patient has diminished feeling 3 - + 4 - + 5 - + 6 - + WC - Nurse 1 - General Ulcer Measurement Start: 02/26/22 08:06 Freq: Status: Active Protocol: Activity Type Activity Date Activity User E-sign Co-sign Detail Recorded Client Recorded Date Recorded By Document 02/26/22 08:09 KR [id number] 02/26/22 08:20 KR Document 03/05/22 08:42 KR [id number] 03/05/22 08:44 KR Document 03/12/22 08:27 DL [id number] 03/12/22 08:42 DL Document 03/19/22 08:49 DL [id number] 03/19/22 08:59 DL 02/26/22 03/05/22 03/12/22 08:09 08:42 08:27 Wound Center Nurse 1 #1 Left Lower Extremity -Current Size (cm) - Length 4.1 4.6 4.7 -Current Size (cm) - Width 3.5 4.3 4.6 -Current Size (cm) - Depth 0.1 0.2 0.1 -Total Square Cm 14.35 19.78 21.62 -Photo Taken No -Exudate Amt Large Medium Medium -Exudate Type Yellow/Green Serosanguineous Serosanguineous -Wound Margin Distinct, Distinct, Distinct, Outline Outline Outline Attached Attached Attached -Granulation Amt Medium (34-66%) None Present (0 %) -Granulation Quality Red -Necrosis Amt Large (67-100%) Small (1-33%) Large (67-100%) -Necrotic Tissue Type Adherent Slough Adherent Slough Adherent Slough -Structure Exposed N/A -Texture (Sofiya-wound Skin Appearance) Assessed, Assessed, Localized Edema Scarring Scarring ,Scarring -Moisture (Sofiya-wound Skin Appearance) Assessed, No Abnormality, Dry/Scaly Maceration Assessed -Color (Sofiya-wound Skin Appearance) No Abnormality, No Abnormality, Erythema Assessed Assessed -Temperature (Sofiya-wound Skin No Abnormality No Abnormality No Abnormality Appearance) (Pt Warm) (Pt Warm) (Pt Warm) -Tenderness on Palpation (Sofiya-wound No No Skin Appearance) -Ulcer Cleansing Rinsed/ Rinsed/ Rinsed/ Irrigated with Irrigated with Irrigated with Saline Saline Saline -Foul Odor after Cleansing No No -Anesthetic Used 5% Lidocaine 4% Lidocaine 5% Lidocaine Gel Solution,5% Gel Lidocaine Gel #2 Left Knee -Current Size (cm) - Length -Current Size (cm) - Width -Current Size (cm) - Depth -Total Square Cm -Photo Taken -Exudate Amt -Exudate Type -Wound Margin -Granulation Amt -Granulation Quality -Necrosis Amt -Necrotic Tissue Type -Structure Exposed -Texture (Sofiya-wound Skin Appearance) -Moisture (Sofiya-wound Skin Appearance) -Color (Sofiya-wound Skin Appearance) -Temperature (Sofiya-wound Skin Appearance) -Tenderness on Palpation (Sofiya-wound Skin Appearance) -Ulcer Cleansing -Foul Odor after Cleansing -Anesthetic Used Right Calf (cm) 41.5 Right Ankle (cm) 25 Left Calf (cm) 47.3 45 Left Ankle (cm) 26.6 24.3 03/19/22 08:49 Wound Center Nurse 1 #1 Left Lower Extremity -Current Size (cm) - Length -Current Size (cm) - Width -Current Size (cm) - Depth -Total Square Cm -Photo Taken -Exudate Amt -Exudate Type -Wound Margin -Granulation Amt -Granulation Quality -Necrosis Amt -Necrotic Tissue Type -Structure Exposed -Texture (Sofiya-wound Skin Appearance) -Moisture (Sofiya-wound Skin Appearance) -Color (Sofiya-wound Skin Appearance) -Temperature (Sofiya-wound Skin Appearance) -Tenderness on Palpation (Sofiya-wound Skin Appearance) -Ulcer Cleansing -Foul Odor after Cleansing -Anesthetic Used #2 Left Knee -Current Size (cm) - Length 6.6 -Current Size (cm) - Width 5.6 -Current Size (cm) - Depth 0.3 -Total Square Cm 36.96 -Photo Taken No -Exudate Amt Medium -Exudate Type Serosanguineous -Wound Margin Distinct, Outline Attached -Granulation Amt Small (1-33%) -Granulation Quality Red -Necrosis Amt Large (67-100%) -Necrotic Tissue Type Adherent Slough -Structure Exposed N/A -Texture (Sofiya-wound Skin Appearance) Scarring -Moisture (Sofiya-wound Skin Appearance) Dry/Scaly -Color (Sofiya-wound Skin Appearance) Hemosiderin Staining -Temperature (Sofiya-wound Skin No Abnormality Appearance) (Pt Warm) -Tenderness on Palpation (Sofiya-wound No Skin Appearance) -Ulcer Cleansing Wound Cleanser -Foul Odor after Cleansing No -Anesthetic Used 5% Lidocaine Gel Right Calf (cm) Right Ankle (cm) Left Calf (cm) 44.5 Left Ankle (cm) 21 WC - Nurse 2 - General Ulcer CM Notes Start: 02/26/22 08:06 Freq: Status: Active Protocol: Activity Type Activity Date Activity User E-sign Co-sign Detail Recorded Client Recorded Date Recorded By Document 02/26/22 09:07 PL [id number] 02/26/22 09:09 PL Document 03/05/22 11:14 PL [id number] 03/05/22 11:15 PL Document 03/12/22 12:13 PL [id number] 03/12/22 12:16 PL 02/26/22 03/05/22 03/12/22 09:07 11:14 12:13 Wound Center Nurse 2 #1 Left Lower Extremity -Time 08:40 09:20 -Correct Patient Yes Yes -Correct Side, Site, Position Yes Yes -Correct Procedure Yes Yes -Procedure Performed Yes Yes No -Type of Procedure Debridement Debridement -Clinical Debridement Subcutaneous Subcutaneous -Tissue Removed Subcutaneous Subcutaneous -Post Debridement (cm) - Length 4.1 3.4 -Post Debridement (cm) - Width 3.5 1.4 -Post Debridement (cm) - Depth 0.1 0.1 -Total Square (Post) (cm) 14.35 4.76 -Area of Debridement (cm) - Length 4.1 3.4 -Area of Debridement (cm) - Width 3.5 1.4 -Total Square (Area) (cm) 14.35 4.76 -Tunneling No No -Undermining/Tunneling No No -Circular Undermining No No -Wound/Ulcer Outcome Not Healed Not Healed Healed- Epithelialized -Ulcer Cleansing Rinsed/ Rinsed/ Irrigated with Irrigated with Saline Saline -Foul Odor after Cleansing No No -Bioengineered Tissue No No -Bleeding Controlled with Pressure Pressure -Treatment Response Procedure Procedure Tolerated Well Tolerated Well -Debridement - Subq, 1st 20sq cm Yes Yes #2 Left Knee -Time 08:50 -Correct Patient Yes -Correct Side, Site, Position Yes -Correct Procedure Yes -Procedure Performed Yes -Type of Procedure Debridement -Clinical Debridement Subcutaneous -Tissue Removed Subcutaneous -Post Debridement (cm) - Length 4.7 -Post Debridement (cm) - Width 4.6 -Post Debridement (cm) - Depth 0.1 -Total Square (Post) (cm) 21.62 -Area of Debridement (cm) - Length 4.7 -Area of Debridement (cm) - Width 4.6 -Total Square (Area) (cm) 21.62 -Tunneling No -Undermining/Tunneling No -Circular Undermining No -Wound/Ulcer Outcome Not Healed -Ulcer Cleansing Rinsed/ Irrigated with Saline -Foul Odor after Cleansing No -Bioengineered Tissue No -Bleeding Controlled with Pressure -Treatment Response Procedure Tolerated Well -Debridement - Subq, 1st 20sq cm Yes -Debridement, SubQ, ea addt'l 20sq cm 1 or part thereof Pain Scale: 0-10 Numeric Is Patient Pain Free? Yes Yes Yes WC - Nurse 3 - General Ulcer D/C NN Start: 02/26/22 08:06 Freq: Status: Active Protocol: Activity Type Activity Date Activity User E-sign Co-sign Detail Recorded Client Recorded Date Recorded By Document 02/26/22 08:58 ML [id number] 02/26/22 09:00 ML Document 03/05/22 11:31 PL [id number] 03/05/22 11:33 PL Document 03/12/22 09:40 KR [id number] 03/12/22 09:41 KR 02/26/22 03/05/2203/12/22 08:58 11:31 09:40 Wound Care Nurse 3 #1 Left Lower Extremity -Ulcer Cleansing Rinsed/ Soap and Water Rinsed/ Irrigated with Irrigated with Saline Saline -Foul Odor after Cleansing No No -Negative Pressure Wound Therapy N/A -Other Dressing hydrogel Hydrogel wet to dry -Primary Dressing Covered/Secured with Dry Gauze & Dry Gauze & Dry Gauze,Dry Roll Gauze, Roll Gauze, Gauze & Roll Secured with Secured with Gauze,Secured Tape Tape with Tape Right -Tubular Bandage Double Layer -Size of Tubigrip Used Size D -Size D ($) 2 Left -Tubular Bandage Double Layer Single Layer -Size of Tubigrip Used Size D Size D -Size D ($) 2 1 Pain Scale: 0-10 Numeric Is Patient Pain Free? Yes Yes Yes WC - Visit Discharge Discharge Condition Stable Stable Stable Ambulatory Status Walker Ambulatory, Walker Walker Transportation Ambulance Accompanied by [facility] Medication Reconcilliation completed & No Yes provided to patient/care provider Clinical Summary of Care Provided Yes Yes Lab / Micro Data Micro: Microbiology 03/12/22 09:00 Wound - Leg, Left Gram Stain - Final 03/12/22 09:00 Wound - Leg, Left Wound Culture - Final Serratia marcescens Enterobacter cloacae complex Proteus mirabilis 03/12/22 09:00 Wound - Leg, Left Anaerobic Culture - Final Gram positive nati 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: CODE(S): Z96.653 - Presence of artificial knee joint, bilateral (4) Hyperlipidemia: CODE(S): E78.5 - Hyperlipidemia, unspecified (5) Pacemaker: CODE(S): Z95.0 - Presence of cardiac pacemaker (6) Osteoporosis: CODE(S): M81.0 - Age-related osteoporosis without current pathological fracture (7) Osteoarthritis: CODE(S): M19.90 - Unspecified osteoarthritis, unspecified site (8) COPD (chronic obstructive pulmonary disease): CODE(S): J44.9 - Chronic obstructive pulmonary disease, unspecified (9) Chronic anticoagulation: CODE(S): Z79.01 - longterm (current) use of anticoagulants (10) Atrial fibrillation: CODE(S): I48.91 - Unspecified atrial fibrillation (11) Hypertension: CODE(S): I10 - Essential (primary) hypertension (12) Obesity: CODE(S): E66.9 - Obesity, unspecified (13) History of breast cancer: CODE(S): Z85.3 - Personal history of malignant neoplasm of breast (14) Diabetes mellitus: CODE(S): E11.9 - Type 2 diabetes mellitus without complications (15) Dementia: CODE(S): F03.90 - Unspecified dementia without behavioral disturbance PLAN: Plan This is an 86-year-old female who presented with an ulceration on the left lateral supramalleolar area. Its etiology is uncertain, and the patient denies recent trauma to the area. There is noted to be is associated swelling and edema. The patient has pre-existing medical problems, which have been listed above. The patient has been instructed to elevate her lower extremities is much as possible. Elevation is to be to heart level, or higher. This is to be accomplished during sleeping hours, as well as during daytime hours. She has been advised to refrain from prolonged idle sitting. Activity has been encouraged, though enhancement of activity is unlikely to a significant degree, as the patient requires a walker for ambulation. Swab cultures were obtained for aerobic and anaerobic bacterial growth. Cultures have been positive for Proteus mirabilis, Enterobacter cloacae, and and Serratia marcescens. The patient has been started on Bactrim double strength p.o. twice daily for total of 10 days, and is currently in the midst of this course. There has been slight improvement in the necrotic and nonviable tissue present on the surface of the wound. Therefore, we are to continue the use of Dakin's 0.25% solution, which will be used to moisten gauze, and applied topically to the wound on a daily basis. Compression is to be continued by means of Tubigrip's, striving for 20 to 30 mmHg compression which will be applied on a daily basis. The patient is to return in 1 week for reassessment. Laboratory results have been now obtained, with results as follows: Glucose 84, sodium 139, potassium 4.0, chloride 99, BUN 11, creatinine 0.58, calcium 9.2, albumin 3.8, total protein 6.4, AST 17, ALT 14, white blood count 5.8, hemoglobin 13.2, hematocrit 39.8, platelets 209,000. These laboratory results are from March 06, 2022. The patient has been encouraged to assure adequate oral nutritional intake. Unfortunately, it appears as though the patient has been relatively noncompliant in her assisted living environment, as it appears that she is not elevating her lower extremities as advised. This has been reinforced in discussion today. Furthermore, she arrives today with a localized Sanchez wrap about her calf, rather than the Tubigrip which has been recommended and recently applied. Patient is return in 1 week for reassessment. Total time: 29 minutes
== END 2022-03-21 23:59 | disposition home or self-care (01) ==
LOC: WC 08:30
PROVIDERS: PCP Internal Medicine; Visit Provider Surgery
DX: E11.622 Type 2 diabetes mellitus with other skin ulcer (principal); L97.222 Non-pressure chronic ulcer of left calf with fat layer exposed; F03.90 Unspecified dementia, unspecified severity, without behavioral disturbance, psychotic disturbance, mood disturbance, and anxiety; J44.9 Chronic obstructive pulmonary disease, unspecified; E11.610 Type 2 diabetes mellitus with diabetic neuropathic arthropathy; E11.40 Type 2 diabetes mellitus with diabetic neuropathy, unspecified; I48.91 Unspecified atrial fibrillation; L90.5 Scar conditions and fibrosis of skin; I10 Essential (primary) hypertension; Z79.01 Long term (current) use of anticoagulants; M19.90 Unspecified osteoarthritis, unspecified site; Z96.653 Presence of artificial knee joint, bilateral; Z95.0 Presence of cardiac pacemaker; L08.9 Local infection of the skin and subcutaneous tissue, unspecified; E78.5 Hyperlipidemia, unspecified; M81.0 Age-related osteoporosis without current pathological fracture; E66.9 Obesity, unspecified
CPT/HCPCS: 11042; 11045; 87070; 87075; 87077; 87186; 87205; 99213; G0463

== ENCOUNTER 2022-04-16 08:30 | Outpatient (RCR) | payer MEDICARE, SELFPAY ==
[2022-03-22 00:46] VITALS: BP 139/85; PULSE 88; RESP 20; TEMP 36.4
[2022-03-26 08:31] VITALS: BP 121/59; PULSE 82; RESP 17; TEMP 36.8
--- NOTE | 2022-03-26 08:50 | PCM.WC.HP ---
History of Present Illness Date of Service: 03/26/22 Chief Complaint: Ulceration of the left lateral calf History of Wound: This is an 86-year-old female who presented with an ulceration of the left lateral calf. It is located in the left lateral supra-malleolar area. The patient is a resident of [facility] in [place], [place]. She is very pleasant, conversant, and cooperative. However, she suffers from dementia and is somewhat confused. She is a poor historian with respect to her prior health. Fortunately, some records accompanied her, revealing elements of her past medical history. According the patient, the ulceration on her left lower extremity had been present for approximately 3 weeks. She denied any traumatic events. She stated that the ulceration was painful. She claims to sleep on a flat mattress at night. However, she is not very active, and spends a great deal of each day sitting. The accompanying medical records suggest that she has recently undergone a venous duplex examination, results of which revealed no evidence of acute deep vein thrombosis, though valvular competence was not assessed. 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 Wound infection Home Medications Calcium 600 + D(3) See Rx Instructions .Route .COMPLEX 02/26/22 [History Last Taken Unknown] acetaminophen 650 mg tablet 650 mg PO Q4H PRN Pain 02/26/22 [History Last Taken Unknown] albuterol 90 mcg/actuation aerosol inhaler mcg inhalation 02/26/22 [History Last Taken Unknown] anastrozole 1 mg tablet 1 mg PO DAILY 02/26/22 [History Last Taken Unknown] donepezil 10 mg tablet 10 mg PO QHS 02/26/22 [History Last Taken Unknown] donepezil 10 mg tablet 10 mg PO QHS 02/26/22 [History Last Taken Unknown] famotidine 20 mg tablet 20 mg PO BID 02/26/22 [History Last Taken Unknown] ferrous sulfate 325 mg (65 mg iron) tablet (FeroSul) 325 mg PO DAILY 02/26/22 [History Last Taken Unknown] fluticasone 100 mcg-salmeterol 50 mcg/dose blistr powdr for inhalation (Advair Diskus) 1 inh inhalation BID 02/26/22 [History Last Taken Unknown] lovastatin 20 mg tablet 20 mg PO QPM 02/26/22 [History Last Taken Unknown] metoprolol succinate 25 mg capsule sprinkle, ext. release 24 hr 25 mg PO DAILY 02/26/22 [History Last Taken Unknown] pramipexole 1 mg tablet 1 mg PO BID 02/26/22 [History Last Taken Unknown] tramadol 50 mg tablet 50 mg PO Q8H PRN Pain 02/26/22 [History Last Taken Unknown] warfarin 2.5 mg tablet 2.5 mg PO DAILY 02/26/22 [History Last Taken Unknown] Vital Signs Vital Signs Vital Signs: 03/26/22 08:31 Temperature 98.2 F Temperature Source Temporal Pulse Rate 82 Respiratory Rate 17 Blood Pressure 121/59 H Blood Pressure Mean 79 Blood Pressure Source Monitor Blood Pressure Position Sitting Blood Pressure Location Left Arm Physical Exam Const alert, no apparent distress and well nourished Constitutional Narrative: The patient is more lucid today than previous visits, though still somewhat confused. General Appearance: cooperative, comfortable, well kempt and well developed Orientation / Consciousness: awake and confused HEENT normocephalic and head/scalp atraumatic Head and Scalp: normal to inspection, normocephalic and atraumatic External Ear: external ears normal Eyes PERRL and EOMs intact bilaterally General Eye: normal appearance of both eyes Resp normal respiratory effort, normal air movement, no retractions and no use of accessory muscles Effort and Inspection: able to speak in complete sentences Extremity no calf tenderness General Extremity: Negative for clubbing or cyanosis Skin Wound Narrative: The wound on the left lateral supramalleolar area persists. Periwound erythema has essentially resolved. Dimensions are documented elsewhere. Yellowish, nonviable tissue persists within the wound, though much less than previously documented. There is a moderate amount of bioburden. Slight swelling and edema are noted in the patient's left lower extremity. Lipodermatosclerosis and hyperpigmentation are noted in the left gaiter area. Neuro CN's II-XII intact bilaterally and moves all extremities Sensorium / Orientation: awake and alert Psych Appearance: grossly normal and appropriate Attitude: calm Activity / Motor Behavior: appropriate eye contact Speech: normal speech Mood & Affect: euthymic mood Thought Process: normal thought process Thought Content: normal thought content Attention / Concentration: attention grossly intact Debridement Note Debridement Note Wound debrided: Left lateral calf, supramalleolar region Laterality: Left Type of Debridement: Excisional debridement Anesthesia Used: 5% Lidocaine Gel and Cetacaine Depth: Down to and including healthy tissue and in the subcutaneous layer Percentage of wound debrided: 100 Instrument Used: 5mm curette Severity: Fat Layer Exposed Amount of bleeding with debridement: Mild Bleeding Controlled with: Compression and gauze Patient tolerated procedure: Patient tolerated procedure well Post-Debridement Measurements and Additional Note: Post-Debridement Measurements/Treatment WC - Nurse 1 - General Ulcer Assessment Start: 03/26/22 08:30 Freq: Status: Active Protocol: LAKSHMI Activity Type Activity Date Activity User E-sign Co-sign Detail Recorded Client Recorded Date Recorded By Document 03/26/22 08:31 ML [id number] 03/26/22 08:39 ML 03/26/22 08:31 WC - Today's Visit Information Type of service Follow-up Visit (Physician/HEEL SLICKER ) Arrival Mode Ambulatory, Walker Transfer Assistance None Patient Identification Verified (Name & Yes ) Patient Requires Transmission-Based No Precautions Safety Precautions NA Vital Signs Temperature (97.8 F-99.1 F) 98.2 F Temperature Source Temporal Pulse Rate (60-100) 82 Pulse Location Monitor Respiratory Rate (12-18) 17 Respiratory rate source Observation Blood Pressure (90/60-120/80) 121/59 H Blood Pressure Mean 79 Source Monitor Position Sitting Blood Pressure Location Left Arm History Since Last Visit- (Skip if this is Patient's initial visit) Have you changed medications since your No last visit? Any new allergies or adverse reactions No Had a fall/change in ADL's that may No increase risk of falls Signs or symptoms of abuse and/or No neglect since last visit Have you been in the hospital since your No last visit? Has dressing in place as prescribed Yes Has compression in place as prescribed N/A Has offloadiing in place as prescribed N/A Experienced any changes in pain level or No management Left Footwear Regular Shoe Right Footwear Regular Shoe Pain Scale: 0-10 Numeric Is Patient Pain Free? Yes MICHELINE Hinojosa Nurse 1 - General Ulcer Measurement Start: 03/26/22 08:30 Freq: Status: Active Protocol: Activity Type Activity Date Activity User E-sign Co-sign Detail Recorded Client Recorded Date Recorded By Document 03/26/22 08:31 ML [id number] 03/26/22 08:39 ML 03/26/22 08:31 Wound Center Nurse 1 #2 Left Knee -Current Size (cm) - Length 6 -Current Size (cm) - Width 5 -Current Size (cm) - Depth 0.2 -Total Square Cm 30 -Exudate Amt Medium -Exudate Type Serosanguineous -Wound Margin Distinct, Outline Attached -Granulation Amt Small (1-33%) -Slough/Fibrin Yes -Necrosis Amt Medium (34-66%) -Necrotic Tissue Type Adherent Slough -Texture (Sofiya-wound Skin Appearance) Assessed -Moisture (Sofiya-wound Skin Appearance) No Abnormality -Color (Sofiya-wound Skin Appearance) Assessed -Temperature (Sofiya-wound Skin No Abnormality Appearance) (Pt Warm) -Tenderness on Palpation (Sofiya-wound No Skin Appearance) -Ulcer Cleansing Soap and Water -Foul Odor after Cleansing No -Anesthetic Used 5% Lidocaine Gel Right Calf (cm) 41 Right Ankle (cm) 23 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: CODE(S): Z96.653 - Presence of artificial knee joint, bilateral (4) Hyperlipidemia: CODE(S): E78.5 - Hyperlipidemia, unspecified (5) Pacemaker: CODE(S): Z95.0 - Presence of cardiac pacemaker (6) Osteoporosis: CODE(S): M81.0 - Age-related osteoporosis without current pathological fracture (7) Osteoarthritis: CODE(S): M19.90 - Unspecified osteoarthritis, unspecified site (8) COPD (chronic obstructive pulmonary disease): CODE(S): J44.9 - Chronic obstructive pulmonary disease, unspecified (9) Chronic anticoagulation: 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 Its etiology is uncertain, and the patient denies recent trauma to the area. There is noted to be is associated swelling and edema. The patient has pre-existing medical problems, which have been listed above. The patient has been instructed to elevate her lower extremities is much as possible. Elevation is to be to heart level, or higher. This is to be accomplished during sleeping hours, as well as during daytime hours. She has been advised to refrain from prolonged idle sitting. Activity has been encouraged, though enhancement of activity is unlikely to a significant degree, as the patient requires a walker for ambulation. Swab cultures were obtained for aerobic and anaerobic bacterial growth. Cultures have been positive for Proteus mirabilis, Enterobacter cloacae, and and Serratia marcescens. The patient was placed on Bactrim double strength p.o. twice daily for total of 10 days, which has now been completed. There has been improvement in the amount of necrotic and nonviable tissue present on the surface of the wound. We are to continue the use of Dakin's 0.25% solution, which will be used to moisten gauze, and applied topically to the wound on a daily basis. Compression is to be continued by means of Tubigrip's, striving for 20 to 30 mmHg compression which will be applied on a daily basis. The patient is to return in 1 week for reassessment. Laboratory results have been now obtained, with results as follows: Glucose 84, sodium 139, potassium 4.0, chloride 99, BUN 11, creatinine 0.58, calcium 9.2, albumin 3.8, total protein 6.4, AST 17, ALT 14, white blood count 5.8, hemoglobin 13.2, hematocrit 39.8, platelets 209,000. These laboratory results are from March 06, 2022. The patient has been encouraged to assure adequate oral nutritional intake. Unfortunately, it appears as though the patient has been relatively noncompliant in her assisted living environment, as it appears that she is not elevating her lower extremities as advised, and may not be using Tubigrip's as recommended. These measures have been reinforced in discussion today. The patient arrived today without compression wrap on her left lower extremity. Patient is return in 1 week for reassessment. Total time: 28 minutes
[2022-04-02 08:30] VITALS: BP 136/69; PULSE 85; RESP 20; TEMP 36.4
--- NOTE | 2022-04-02 09:06 | PCM.WC.HP ---
History of Present Illness Date of Service: 04/02/22 Chief Complaint: Ulceration of the left lateral calf History of Wound: This is an 86-year-old female who presented with an ulceration of the left lateral calf. It is located in the left lateral supra-malleolar area. The patient is a resident of [facility] in [place], [place]. She is very pleasant, conversant, and cooperative. However, she suffers from dementia and is somewhat confused. She is a poor historian with respect to her prior health. Fortunately, some records accompanied her, revealing elements of her past medical history. According the patient, the ulceration on her left lower extremity had been present for approximately 3 weeks. She denied any traumatic events. She stated that the ulceration was painful. She claims to sleep on a flat mattress at night. However, she is not very active, and spends a great deal of each day sitting. The accompanying medical records suggest that she has recently undergone a venous duplex examination, results of which revealed no evidence of acute deep vein thrombosis, though valvular competence was not assessed. 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 Wound infection Home Medications Calcium 600 + D(3) See Rx Instructions .Route .COMPLEX 02/26/22 [History Last Taken Unknown] acetaminophen 650 mg tablet 650 mg PO Q4H PRN Pain 02/26/22 [History Last Taken Unknown] albuterol 90 mcg/actuation aerosol inhaler mcg inhalation 02/26/22 [History Last Taken Unknown] anastrozole 1 mg tablet 1 mg PO DAILY 02/26/22 [History Last Taken Unknown] donepezil 10 mg tablet 10 mg PO QHS 02/26/22 [History Last Taken Unknown] donepezil 10 mg tablet 10 mg PO QHS 02/26/22 [History Last Taken Unknown] famotidine 20 mg tablet 20 mg PO BID 02/26/22 [History Last Taken Unknown] ferrous sulfate 325 mg (65 mg iron) tablet (FeroSul) 325 mg PO DAILY 02/26/22 [History Last Taken Unknown] fluticasone 100 mcg-salmeterol 50 mcg/dose blistr powdr for inhalation (Advair Diskus) 1 inh inhalation BID 02/26/22 [History Last Taken Unknown] lovastatin 20 mg tablet 20 mg PO QPM 02/26/22 [History Last Taken Unknown] metoprolol succinate 25 mg capsule sprinkle, ext. release 24 hr 25 mg PO DAILY 02/26/22 [History Last Taken Unknown] pramipexole 1 mg tablet 1 mg PO BID 02/26/22 [History Last Taken Unknown] tramadol 50 mg tablet 50 mg PO Q8H PRN Pain 02/26/22 [History Last Taken Unknown] warfarin 2.5 mg tablet 2.5 mg PO DAILY 02/26/22 [History Last Taken Unknown] Vital Signs Vital Signs Vital Signs: 04/02/22 08:30 Temperature 97.5 F L Temperature Source Temporal Pulse Rate 85 Respiratory Rate 20 H Blood Pressure 136/69 H Blood Pressure Mean 91 Blood Pressure Source Monitor Physical Exam Const alert, no apparent distress and well nourished Constitutional Narrative: The patient is lucid today. General Appearance: cooperative, comfortable, well kempt and well developed Orientation / Consciousness: awake and confused HEENT normocephalic and head/scalp atraumatic Head and Scalp: normal to inspection, normocephalic and atraumatic External Ear: external ears normal Eyes PERRL and EOMs intact bilaterally General Eye: normal appearance of both eyes Resp normal respiratory effort, normal air movement, no retractions and no use of accessory muscles Effort and Inspection: able to speak in complete sentences Extremity no calf tenderness General Extremity: Negative for clubbing or cyanosis Skin Wound Narrative: The wound on the left lateral supramalleolar area persists. Periwound erythema has essentially resolved. Dimensions are documented elsewhere. A small amount of yellowish, nonviable tissue persists within the wound, though much less than previously documented. There is a moderate amount of bioburden. Swelling and edema in the left lower extremity appears to be well controlled, and minimal. Lipodermatosclerosis and hyperpigmentation are noted in the left gaiter area. Neuro CN's II-XII intact bilaterally and moves all extremities Sensorium / Orientation: awake and alert Psych Appearance: grossly normal and appropriate Attitude: calm Activity / Motor Behavior: appropriate eye contact Speech: normal speech Mood & Affect: euthymic mood Thought Process: normal thought process Thought Content: normal thought content Attention / Concentration: attention grossly intact Debridement Note Debridement Note Wound debrided: Left lateral calf Laterality: Left Type of Debridement: Excisional debridement Anesthesia Used: 5% Lidocaine Gel Depth: Down to and including healthy tissue and in the subcutaneous layer Percentage of wound debrided: 100 Instrument Used: 5mm curette Tissue Removed: Bioburden Severity: Fat Layer Exposed Amount of bleeding with debridement: Mild Bleeding Controlled with: Compression and gauze Patient tolerated procedure: Patient tolerated procedure well Post-Debridement Measurements and Additional Note: Post-Debridement Measurements/Treatment - Nurse 1 - General Ulcer Assessment Start: 03/26/22 08:30 Freq: Status: Active Protocol: [employer] Activity Type Activity Date Activity User E-sign Co-sign Detail Recorded Client Recorded Date Recorded By Document 03/26/22 08:31 ML [id number] 03/26/22 08:39 ML Document 04/02/22 08:30 DL [id number] 04/02/22 08:38 DL 03/26/22 04/02/22 08:31 08:30 - Today's Visit Information Type of service Follow-up Visit Follow-up Visit (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 ) ) Arrival Mode Ambulatory, Ambulatory, Walker Walker Transfer Assistance None None Patient Identification Verified (Name & Yes Yes ) Patient Requires Transmission-Based No No Precautions Safety Precautions NA Vital Signs Temperature (97.8 F-99.1 F) 98.2 F 97.5 F L Temperature Source Temporal Temporal Pulse Rate (60-100) 82 85 Pulse Location Monitor Monitor Respiratory Rate (12-18) 17 20 H Respiratory rate source Observation Observation Blood Pressure (90/60-120/80) 121/59 H 136/69 H Blood Pressure Mean 79 91 Source Monitor Monitor Position Sitting Blood Pressure Location Left Arm History Since Last Visit- (Skip if this is Patient's initial visit) Have you changed medications since your No No last visit? Any new allergies or adverse reactions No No Had a fall/change in ADL's that may No No increase risk of falls Signs or symptoms of abuse and/or No No neglect since last visit Have you been in the hospital since your No No last visit? Has dressing in place as prescribed Yes Yes Has compression in place as prescribed N/A Yes Has offloadiing in place as prescribed N/A N/A Experienced any changes in pain level or No management Left Footwear Regular Shoe Right Footwear Regular Shoe Pain Scale: 0-10 Numeric Is Patient Pain Free? Yes Yes WC - Nurse 1 - General Ulcer Measurement Start: 03/26/22 08:30 Freq: Status: Active Protocol: Activity Type Activity Date Activity User E-sign Co-sign Detail Recorded Client Recorded Date Recorded By Document 03/26/22 08:31 ML [id number] 03/26/22 08:39 ML Document 04/02/22 08:30 DL [id number] 04/02/22 08:38 DL 03/26/22 04/02/22 08:31 08:30 Wound Center Nurse 1 #2 Left Knee -Current Size (cm) - Length 6 6.2 -Current Size (cm) - Width 5 5 -Current Size (cm) - Depth 0.2 0.3 -Total Square Cm 30 31.0 -Photo Taken No -Exudate Amt Medium Medium -Exudate Type Serosanguineous Serosanguineous -Wound Margin Distinct, Distinct, Outline Outline Attached Attached -Granulation Amt Small (1-33%) Medium (34-66%) -Granulation Quality Red -Slough/Fibrin Yes -Necrosis Amt Medium (34-66%) Medium (34-66%) -Necrotic Tissue Type Adherent Slough Adherent Slough -Structure Exposed N/A -Texture (Sofiya-wound Skin Appearance) Assessed Scarring -Moisture (Sofiya-wound Skin Appearance) No Abnormality Dry/Scaly -Color (Sofiya-wound Skin Appearance) Assessed Hemosiderin Staining -Temperature (Sofiya-wound Skin No Abnormality No Abnormality Appearance) (Pt Warm) (Pt Warm) -Tenderness on Palpation (Sofiya-wound No No Skin Appearance) -Ulcer Cleansing Soap and Water Not Cleansed -Foul Odor after Cleansing No No -Anesthetic Used 5% Lidocaine 4% Lidocaine Gel Solution Right Calf (cm) 41 Right Ankle (cm) 23 Left Calf (cm) 42.2 Left Ankle (cm) 21 WC - Nurse 2 - General Ulcer CM Notes Start: 03/26/22 08:30 Freq: Status: Active Protocol: Activity Type Activity Date Activity User E-sign Co-sign Detail Recorded Client Recorded Date Recorded By Document 03/26/22 09:00 PL [id number] 03/26/22 09:01 PL Document 04/02/22 09:04 PL [id number] 04/02/22 09:06 PL 03/26/22 04/02/22 09:00 09:04 Wound Center Nurse 2 #2 Left Knee -Time 08:43 08:58 -Correct Patient Yes Yes -Correct Side, Site, Position Yes Yes -Correct Procedure Yes Yes -Procedure Performed Yes Yes -Type of Procedure Debridement Debridement -Clinical Debridement Subcutaneous Subcutaneous -Tissue Removed Subcutaneous Subcutaneous -Post Debridement (cm) - Length 6.0 6.2 -Post Debridement (cm) - Width 5.0 5.0 -Post Debridement (cm) - Depth 0.2 0.3 -Total Square (Post) (cm) 30.00 31.00 -Area of Debridement (cm) - Length 6.0 6.2 -Area of Debridement (cm) - Width 5.0 5.0 -Total Square (Area) (cm) 30.00 31.00 -Tunneling No No -Undermining/Tunneling No No -Circular Undermining No No -Wound/Ulcer Outcome Not Healed Not Healed -Ulcer Cleansing Rinsed/ Rinsed/ Irrigated with Irrigated with Saline Saline -Foul Odor after Cleansing No No -Bioengineered Tissue No No -Bleeding Controlled with Pressure -Treatment Response Procedure Tolerated Well -Debridement - Subq, 1st 20sq cm Yes Yes -Debridement, SubQ, ea addt'l 20sq cm 1 1 or part thereof Pain Scale: 0-10 Numeric Is Patient Pain Free? Yes Yes - Nurse 3 - General Ulcer D/C NN Start: 03/26/22 08:30 Freq: Status: Active Protocol: Activity Type Activity Date Activity User E-sign Co-sign Detail Recorded Client Recorded Date Recorded By Document 03/26/22 08:51 ML [id number] 03/26/22 08:52 ML 03/26/22 08:51 Wound Care Nurse 3 #2 Left Knee -Ulcer Cleansing Rinsed/ Irrigated with Saline -Other Dressing wet to dry today,dakins daily -Primary Dressing Covered/Secured with Dry Gauze & Roll Gauze, Secured with Tape Right -Tubular Bandage Single Layer -Size of Tubigrip Used Size D -Size D ($) 1 Left -Tubular Bandage Single Layer -Size of Tubigrip Used Size D -Size D ($) 1 Pain Scale: 0-10 Numeric Is Patient Pain Free? 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: CODE(S): Z96.653 - Presence of artificial knee joint, bilateral (4) Hyperlipidemia: CODE(S): E78.5 - Hyperlipidemia, unspecified (5) Pacemaker: CODE(S): Z95.0 - Presence of cardiac pacemaker (6) Osteoporosis: CODE(S): M81.0 - Age-related osteoporosis without current pathological fracture (7) Osteoarthritis: CODE(S): M19.90 - Unspecified osteoarthritis, unspecified site (8) COPD (chronic obstructive pulmonary disease): CODE(S): J44.9 - Chronic obstructive pulmonary disease, unspecified (9) Chronic anticoagulation: CODE(S): 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 Its etiology is uncertain, and the patient denies recent trauma to the area. There is noted to be is associated swelling and edema. The patient has pre-existing medical problems, which have been listed above. The patient has been instructed to elevate her lower extremities is much as possible. Elevation is to be to heart level, or higher. This is to be accomplished during sleeping hours, as well as during daytime hours. She has been advised to refrain from prolonged idle sitting. Activity has been encouraged, though enhancement of activity is unlikely to a significant degree, as the patient requires a walker for ambulation. Swab cultures were obtained for aerobic and anaerobic bacterial growth. Cultures have been positive for Proteus mirabilis, Enterobacter cloacae, and and Serratia marcescens. The patient was placed on Bactrim double strength p.o. twice daily for total of 10 days, which has now been completed. There has been improvement in the amount of necrotic and nonviable tissue present on the surface of the wound. We are to continue the use of Dakin's 0.25% solution, which will be used to moisten gauze, and applied topically to the wound on a daily basis. Compression is to be continued by means of Tubigrip's, striving for 20 to 30 mmHg compression which will be applied on a daily basis. The patient is to return in 2 weeks for reassessment. Laboratory results have been now obtained, with results as follows: Glucose 84, sodium 139, potassium 4.0, chloride 99, BUN 11, creatinine 0.58, calcium 9.2, albumin 3.8, total protein 6.4, AST 17, ALT 14, white blood count 5.8, hemoglobin 13.2, hematocrit 39.8, platelets 209,000. These laboratory results are from March 06, 2022. The patient has been encouraged to assure adequate oral nutritional intake. Patient is return in 2 weeks for reassessment. Total time: 29 minutes
[2022-04-16 08:35] VITALS: BP 134/78; PULSE 86; TEMP 36.3
--- NOTE | 2022-04-16 08:57 | HP.PCM_ITS ---
History of Present Illness Date of Service: 04/16/22 Chief Complaint: Ulceration of the left lateral calf History of Wound: This is an 86-year-old female who presented with an ulceration of the left lateral calf. It is located in the left lateral supra-malleolar area. The patient is a resident of [facility] in [place], [place]. She is very pleasant, conversant, and cooperative. However, she suffers from dementia and is somewhat confused. She is a poor historian with r espect to her prior health. Fortunately, some records accompanied her, revealing elements of her past medical history. According the patient, the ulceration on her left lower extremity had been present for approximately 3 weeks. She denied any traumatic events. She stated that the ulceration was painful. She claims to sleep on a flat mattress at night. However, she is not very active, and spends a great deal of each day sitting. The accompanying medical records suggest that she has recently undergone a venous duplex examination, results of which revealed no evidence of acute deep vein t hrombosis, though valvular competence was not assessed. [facility] Medical History (Updated 04/16/22 @ 09:[address] 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 Unspecified open wound, left lower leg, subsequent encounter Wound infection Home Medications Calcium 600 + D(3) See Rx Instructions .Route .COMPLEX 02/26/22 [History Last Taken Unknown] acetaminophen 650 mg tablet 650 mg PO Q4H PRN Pain 02/26/22 [History Last Taken Unknown] albuterol 90 mcg/actuation aerosol inhaler mcg inhalation 02/26/22 [History Last Taken Unknown] anastrozole 1 mg tablet 1 mg PO DAILY 02/26/22 [History Last Taken Unknown] donepezil 10 mg tablet 10 mg PO QHS 02/26/22 [History Last Taken Unknown] donepezil 10 mg tablet 10 mg PO QHS 02/26/22 [History Last Taken Unknown] famotidine 20 mg tablet 20 mg PO BID 02/26/22 [History Last Taken Unknown] ferrous sulfate 325 mg (65 mg iron) tablet (FeroSul) 325 mg PO DAILY 02/26/22 [History Last Taken Unknown] fluticasone 100 mcg-salmeterol 50 mcg/dose blistr powdr for inhalation (Advair Diskus) 1 inh inhalation BID 02/26/22 [History Last Taken Unknown] lovastatin 20 mg tablet 20 mg PO QPM 02/26/22 [History Last Taken Unknown] metoprolol succinate 25 mg capsule sprinkle, ext. release 24 hr 25 mg PO DAILY 02/26/22 [History Last Taken Unknown] pramipexole 1 mg tablet 1 mg PO BID 02/26/22 [History Last Taken Unknown] tramadol 50 mg tablet 50 mg PO Q8H PRN Pain 02/26/22 [History Last Taken Unknown] warfarin 2.5 mg tablet 2.5 mg PO DAILY 02/26/22 [History Last Taken Unknown] Vital Signs Vital Signs Vital Signs: 04/16/22 08:35 Temperature 97.4 F L Temperature Source Temporal Pulse Rate 86 Blood Pressure 134/78 H Blood Pressure Mean 96 Blood Pressure Source Monitor Blood Pressure Position Sitting Blood Pressure Location Right Arm Physical Exam Const alert, oriented x3, no apparent distress and well nourished Constitutional Narrative: The patient is lucid today. General Appearance: cooperative, comfortable, well kempt and well developed Orientation / Consciousness: awake, oriented to person and confused HEENT normocephalic, head/scalp atraumatic and hearing grossly normal bilaterally Head and Scalp: normal to inspection, normocephalic and atraumatic External Ear: external ears normal Eyes PERRL and EOMs intact bilaterally General Eye: normal appearance of both eyes Resp normal respiratory effort, normal air movement, no retractions and no use of accessory muscles Effort and Inspection: able to speak in complete sentences Extremity no calf tenderness General Extremity: Negative for clubbing or cyanosis Skin Wound Narrative: The wound on the left lateral supramalleolar area persists. Periwound erythema has resolved. The wound is smaller in size as compared to prior visits. Dimensions are documented elsewhere. A small amount of yellowish, nonviable tissue persists within the wound, though much less than previously documented. There is a small amount of bioburden. Swelling and edema in the left lower extremity appear to be well controlled, and minimal. Lipodermatosclerosis and hyperpigmentation are noted in the left gaiter area. Mild scaly dermatitis is noted in the left gaiter area. Neuro CN's II-XII intact bilaterally and moves all extremities Sensorium / Orientation: awake and alert Psych Appearance: grossly normal and appropriate Attitude: calm Activity / Motor Behavior: appropriate eye contact Speech: normal speech Mood & Affect: euthymic mood Thought Process: normal thought process Thought Content: normal thought content Attention / Concentration: attention grossly intact Debridement Note Debridement Note Wound debrided: Left lateral supramalleolar area Laterality: Left Type of Debridement: Excisional debridement Anesthesia Used: 5% Lidocaine Gel Depth: Down to and including healthy tissue and in the subcutaneous layer Percentage of wound debrided: 100 Instrument Used: 5mm curette Tissue Removed: Bioburden and a small amount of nonviable tissue Severity: Fat Layer Exposed Amount of bleeding with debridement: Mild Bleeding Controlled with: Compression and gauze Patient tolerated procedure: Patient tolerated procedure well Post-Debridement Measurements and Additional Note: Post-Debridement Measurements/Treatment - Nurse 1 - General Ulcer Assessment Start: 03/26/22 08:30 Freq: Status: Active Protocol: LAKSHMI Activity Type Activity Date Activity User E-sign Co-sign Detail Recorded Client Recorded Date Recorded By Document 03/26/22 08:31 ML [id number] 03/26/22 08:39 ML Document 04/02/22 08:30 DL [id number] 04/02/22 08:38 DL Document 04/16/22 08:35 KR [id number] 04/16/22 08:38 KR 03/26/22 04/02/22 04/16/22 08:31 08:30 08:35 - Today's Visit Information Type of service Follow-up Visit Follow-up Visit Follow-up Visit (Physician/BUILDING MAINTENANCE TECHNICIAN (Physician/BUILDING MAINTENANCE TECHNICIAN (Physician/BUILDING MAINTENANCE TECHNICIAN ) ) ) Arrival Mode Ambulatory, Ambulatory, Ambulatory, Walker Walker Walker Transfer Assistance None None Patient Identification Verified (Name & Yes Yes Yes ) Patient Requires Transmission-Based No No Precautions Safety Precautions NA Vital Signs Temperature (97.8 F-99.1 F) 98.2 F 97.5 F L 97.4 F L Temperature Source Temporal Temporal Temporal Pulse Rate (60-100) 82 85 86 Pulse Location Monitor Monitor Monitor Respiratory Rate (12-18) 17 20 H Respiratory rate source Observation Observation Blood Pressure (90/60-120/80) 121/59 H 136/69 H 134/78 H Blood Pressure Mean 79 91 96 Source Monitor Monitor Monitor Position Sitting Sitting Blood Pressure Location Left Arm Right Arm History Since Last Visit- (Skip if this is Patient's initial visit) Have you changed medications since your No No No last visit? Any new allergies or adverse reactions No No No Had a fall/change in ADL's that may No No No increase risk of falls Signs or symptoms of abuse and/or No No No neglect since last visit Have you been in the hospital since your No No No last visit? Has dressing in place as prescribed Yes Yes Yes Has compression in place as prescribed N/A Yes Yes Has offloadiing in place as prescribed N/A N/A N/A Experienced any changes in pain level or No No management Left Footwear Regular Shoe Regular Shoe Right Footwear Regular Shoe Regular Shoe Pain Scale: 0-10 Numeric Is Patient Pain Free? Yes Yes Yes WC - Nurse 1 - General Ulcer Measurement Start: 03/26/22 08:30 Freq: Status: Active Protocol: Activity Type Activity Date Activity User E-sign Co-sign Detail Recorded Client Recorded Date Recorded By Document 03/26/22 08:31 ML [id number] 03/26/22 08:39 ML Document 04/02/22 08:30 DL [id number] 04/02/22 08:38 DL Document 04/16/22 08:35 KR [id number] 04/16/22 08:38 KR 03/26/22 04/02/22 04/16/22 08:31 08:30 08:35 Wound Center Nurse 1 #2 Left Knee -Current Size (cm) - Length 6 6.2 6 -Current Size (cm) - Width 5 5 4.6 -Current Size (cm) - Depth 0.2 0.3 0.1 -Total Square Cm 30 31.0 27.6 -Photo Taken No -Exudate Amt Medium Medium Medium -Exudate Type Serosanguineous Serosanguineous Serosanguineous -Wound Margin Distinct, Distinct, Distinct, Outline Outline Outline Attached Attached Attached -Granulation Amt Small (1-33%) Medium (34-66%) Large (67-100%) -Granulation Quality Red Red -Slough/Fibrin Yes -Necrosis Amt Medium (34-66%) Medium (34-66%) Small (1-33%) -Necrotic Tissue Type Adherent Slough Adherent Slough Adherent Slough -Structure Exposed N/A -Texture (Sofiya-wound Skin Appearance) Assessed Scarring Assessed, Scarring -Moisture (Sofiya-wound Skin Appearance) No Abnormality Dry/Scaly Assessed,Dry/ Scaly -Color (Sofiya-wound Skin Appearance) Assessed Hemosiderin No Abnormality, Staining Assessed -Temperature (Sofiya-wound Skin No Abnormality No Abnormality No Abnormality Appearance) (Pt Warm) (Pt Warm) (Pt Warm) -Tenderness on Palpation (Sofiya-wound No No No Skin Appearance) -Ulcer Cleansing Soap and Water Not Cleansed Rinsed/ Irrigated with Saline -Foul Odor after Cleansing No No No -Anesthetic Used 5% Lidocaine 4% Lidocaine 5% Lidocaine Gel Solution Gel Right Calf (cm) 41 Right Ankle (cm) 23 Left Calf (cm) 42.2 42.3 Left Ankle (cm) 21 26.4 WC - Nurse 2 - General Ulcer CM Notes Start: 03/26/22 08:30 Freq: Status: Active Protocol: Activity Type Activity Date Activity User E-sign Co-sign Detail Recorded Client Recorded Date Recorded By Document 03/26/22 09:00 [id number] 03/26/22 09:01 PL Document 04/02/22 09:04 PL [id number] 04/02/22 09:06 PL Document 04/16/22 08:52 PL [id number] 04/16/22 08:53 PL 03/26/22 04/02/22 04/16/22 09:00 09:04 08:52 Wound Center Nurse 2 #2 Left Knee -Time 08:43 08:58 08:44 -Correct Patient Yes Yes Yes -Correct Side, Site, Position Yes Yes Yes -Correct Procedure Yes Yes Yes -Procedure Performed Yes Yes Yes -Type of Procedure Debridement Debridement Debridement -Clinical Debridement Subcutaneous Subcutaneous Subcutaneous -Tissue Removed Subcutaneous Subcutaneous Subcutaneous -Post Debridement (cm) - Length 6.0 6.2 6.0 -Post Debridement (cm) - Width 5.0 5.0 4.6 -Post Debridement (cm) - Depth 0.2 0.3 0.1 -Total Square (Post) (cm) 30.00 31.00 27.60 -Area of Debridement (cm) - Length 6.0 6.2 6.0 -Area of Debridement (cm) - Width 5.0 5.0 4.6 -Total Square (Area) (cm) 30.00 31.00 27.60 -Tunneling No No No -Undermining/Tunneling No No No -Circular Undermining No No No -Wound/Ulcer Outcome Not Healed Not Healed Not Healed -Ulcer Cleansing Rinsed/ Rinsed/ Rinsed/ Irrigated with Irrigated with Irrigated with Saline Saline Saline -Foul Odor after Cleansing No No No -Bioengineered Tissue No No No -Bleeding Controlled with Pressure Pressure -Treatment Response Procedure Procedure Tolerated Well Tolerated Well -Debridement - Subq, 1st 20sq cm Yes Yes Yes -Debridement, SubQ, ea addt'l 20sq cm 1 1 1 or part thereof Pain Scale: 0-10 Numeric Is Patient Pain Free? Yes Yes Yes - Nurse 3 - General Ulcer D/C NN Start: 03/26/22 08:30 Freq: Status: Active Protocol: Activity Type Activity Date Activity User E-sign Co-sign Detail Recorded Client Recorded Date Recorded By Document 03/26/22 08:51 ML [id number] 03/26/22 08:52 ML Document 04/02/22 10:02 KR [id number] 04/02/22 10:03 KR Document 04/16/22 08:54 KR [id number] 04/16/22 08:54 KR 03/26/22 04/02/22 04/16/22 08:51 10:02 08:54 Wound Care Nurse 3 #2 Left Knee -Ulcer Cleansing Rinsed/ Rinsed/ Irrigated with Irrigated with Saline Saline -Other Dressing wet to dry wet to dry wet to dry today,dakins daily -Primary Dressing Covered/Secured with Dry Gauze & Dry Gauze, Dry Gauze,Dry Roll Gauze, Secured with Gauze & Roll Secured with Tape Gauze,Secured Tape with Tape Right -Tubular Bandage Single Layer -Size of Tubigrip Used Size D -Size D ($) 1 Left -Tubular Bandage Single Layer Single Layer -Size of Tubigrip Used Size D Size D -Size D ($) 1 1 Pain Scale: 0-10 Numeric Is Patient Pain Free? Yes Yes Yes - Visit Discharge Discharge Condition Stable Stable Ambulatory Status Walker Ambulatory, Walker Transportation [facility] Accompanied by [facility] Assessment/Plan Assessment/Plan (1) Non-pressure ulcer of left lower extremity: CODE(S): L97.929 - Non-pressure chronic ulcer of unspecified part of left lower leg with unspecified severity (2) Unspecified open wound, left lower leg, subsequent encounter: CODE(S): S81.802D - Unspecified open wound, left lower leg, subsequent encounter (3) Nonhealing nonsurgical wound with fat layer exposed: CODE(S): T14.8XXA - Other injury of unspecified body region, initial encounter (4) 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: CODE(S): Z96.653 - Presence of artificial knee joint, bilateral (5) Hyperlipidemia: CODE(S): E78.5 - Hyperlipidemia, unspecified (6) Pacemaker: CODE(S): Z95.0 - Presence of cardiac pacemaker (7) Osteoporosis: CODE(S): M81.0 - Age-related osteoporosis without current pathological fracture (8) Osteoarthritis: CODE(S): M19.90 - Unspecified osteoarthritis, unspecified site (9) COPD (chronic obstructive pulmonary disease): CODE(S): J44.9 - Chronic obstructive pulmonary disease, unspecified (10) Chronic anticoagulation: CODE(S): Z79.01 - intermediate teacher (current) use of anticoagulants (11) Atrial fibrillation: CODE(S): I48.91 - Unspecified atrial fibrillation (12) Hypertension: CODE(S): I10 - Essential (primary) hypertension (13) Obesity: CODE(S): E66.9 - Obesity, unspecified (14) History of breast cancer: CODE(S): Z85.3 - Personal history of malignant neoplasm of breast (15) Diabetes mellitus: CODE(S): E11.9 - Type 2 diabetes mellitus without complications (16) Dementia: CODE(S): F03.90 - Unspecified dementia without behavioral disturbance PLAN: Plan This is an 86-year-old female who presented with an ulceration on the left lateral supramalleolar area. Its etiology is uncertain, and the patient denies recent trauma to the area. There is noted to be is associated swelling and edema. The patient has pre-existing medical problems, which have been listed above. The patient has been instructed to elevate her lower extremities as much as possible. Elevation is to be to heart level, or higher. This is to be accomplished during sleeping hours, as well as during daytime hours. She has been advised to refrain from prolonged idle sitting. Activity has been encouraged, though enhancement of activity is unlikely to a significant degree, as the patient requires a walker for ambulation. Swab cultures were obtained for aerobic and anaerobic bacterial growth. Cultures have been positive for Proteus mirabilis, Enterobacter cloacae, and and Serratia marcescens. The patient was placed on Bactrim double strength p.o. twice daily for total of 10 days, which has now been completed. There has been improvement and resolution in the amount of necrotic and nonviable tissue present on the surface of the wound. We are to continue the use of Dakin's 0.25% solution, which will be used to moisten gauze, and applied topically to the wound on a daily basis. Compression is to be continued by means of Tubigrip's, striving for 20 to 30 mmHg compression which will be applied on a daily basis. We are to seek preauthorization for Therion, a skin graft substitute. Laboratory results have been now obtained, with results as follows: Glucose 84, sodium 139, potassium 4.0, chloride 99, BUN 11, creatinine 0.58, calcium 9.2, albumin 3.8, total protein 6.4, AST 17, ALT 14, white blood count 5.8, hemoglobin 13.2, hematocrit 39.8, platelets 209,000. These laboratory results are from March 06, 2022. The patient has been encouraged to assure adequate oral nutritional intake. Patient is return in 2 weeks for reassessment. Total time: 28 minutes
== END 2022-04-21 23:59 | disposition home or self-care (01) ==
LOC: WC 08:30
PROVIDERS: PCP Internal Medicine; Visit Provider Surgery
DX: E11.622 Type 2 diabetes mellitus with other skin ulcer (principal); L97.222 Non-pressure chronic ulcer of left calf with fat layer exposed; F03.90 Unspecified dementia, unspecified severity, without behavioral disturbance, psychotic disturbance, mood disturbance, and anxiety; J44.9 Chronic obstructive pulmonary disease, unspecified; I48.91 Unspecified atrial fibrillation; E78.5 Hyperlipidemia, unspecified; I10 Essential (primary) hypertension; M19.90 Unspecified osteoarthritis, unspecified site; Z96.653 Presence of artificial knee joint, bilateral; E66.9 Obesity, unspecified; Z95.0 Presence of cardiac pacemaker; L08.9 Local infection of the skin and subcutaneous tissue, unspecified; M81.0 Age-related osteoporosis without current pathological fracture; Z79.01 Long term (current) use of anticoagulants; Z85.3 Personal history of malignant neoplasm of breast; T14.8XXA Other injury of unspecified body region, initial encounter
CPT/HCPCS: 11042; 11045

== ENCOUNTER 2022-05-21 08:30 | Outpatient (RCR) | payer MEDICARE, SELFPAY ==
[2022-04-22 00:34] VITALS: BP 134/78; PULSE 86; RESP 20; TEMP 36.3
[2022-04-30 08:13] VITALS: BP 111/67; PULSE 72; RESP 18; TEMP 36.1
--- NOTE | 2022-04-30 08:28 | HP.PCM_ITS ---
History of Present Illness Date of Service: 04/30/22 Chief Complaint: Ulceration of the left lateral calf History of Wound: This is an 86-year-old female who presented with an ulceration of the left lateral calf. It is located in the left lateral supra-malleolar area. The patient is a resident of [facility] in [place], [place]. She is very pleasant, conversant, and cooperative. However, she suffers from dementia and is somewhat confused. She is a poor historian with r espect to her prior health. Fortunately, some records accompanied her, revealing elements of her past medical history. According the patient, the ulceration on her left lower extremity had been present for approximately 3 weeks. She denied any traumatic events. She stated that the ulceration was painful. She claims to sleep on a flat mattress at night. However, she is not very active, and spends a great deal of each day sitting. The accompanying medical records suggest that she has recently undergone a venous duplex examination, results of which revealed no evidence of acute deep vein t hrombosis, though valvular competence was not assessed. 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 Unspecified open wound, left lower leg, subsequent encounter Wound infection Home Medications Calcium 600 + D(3) See Rx Instructions .Route .COMPLEX 02/26/22 [History Last Taken Unknown] acetaminophen 650 mg tablet 650 mg PO Q4H PRN Pain 02/26/22 [History Last Taken Unknown] albuterol 90 mcg/actuation aerosol inhaler mcg inhalation 02/26/22 [History Last Taken Unknown] anastrozole 1 mg tablet 1 mg PO DAILY 02/26/22 [History Last Taken Unknown] donepezil 10 mg tablet 10 mg PO QHS 02/26/22 [History Last Taken Unknown] donepezil 10 mg tablet 10 mg PO QHS 02/26/22 [History Last Taken Unknown] famotidine 20 mg tablet 20 mg PO BID 02/26/22 [History Last Taken Unknown] ferrous sulfate 325 mg (65 mg iron) tablet (FeroSul) 325 mg PO DAILY 02/26/22 [History Last Taken Unknown] fluticasone 100 mcg-salmeterol 50 mcg/dose blistr powdr for inhalation (Advair Diskus) 1 inh inhalation BID 02/26/22 [History Last Taken Unknown] lovastatin 20 mg tablet 20 mg PO QPM 02/26/22 [History Last Taken Unknown] metoprolol succinate 25 mg capsule sprinkle, ext. release 24 hr 25 mg PO DAILY 02/26/22 [History Last Taken Unknown] pramipexole 1 mg tablet 1 mg PO BID 02/26/22 [History Last Taken Unknown] tramadol 50 mg tablet 50 mg PO Q8H PRN Pain 02/26/22 [History Last Taken Unknown] warfarin 2.5 mg tablet 2.5 mg PO DAILY 02/26/22 [History Last Taken Unknown] Vital Signs Vital Signs Vital Signs: 04/30/22 08:13 Temperature 96.9 F L Temperature Source Temporal Pulse Rate 72 Respiratory Rate 18 Blood Pressure 111/67 Blood Pressure Mean 81 Blood Pressure Source Monitor Blood Pressure Position Sitting Blood Pressure Location Right Arm Oxygen Delivery Method Room Air Physical Exam Const alert, oriented x3, no apparent distress and well nourished Constitutional Narrative: The patient is lucid today. General Appearance: cooperative, comfortable, well kempt and well developed Orientation / Consciousness: awake, oriented to person and confused HEENT normocephalic, head/scalp atraumatic and hearing grossly normal bilaterally Head and Scalp: normal to inspection, normocephalic and atraumatic External Ear: external ears normal Eyes PERRL and EOMs intact bilaterally General Eye: normal appearance of both eyes Resp normal respiratory effort, normal air movement, no retractions and no use of accessory muscles Effort and Inspection: able to speak in complete sentences Extremity no calf tenderness General Extremity: Negative for clubbing or cyanosis Skin Wound Narrative: The wound on the left lateral supramalleolar area persists. Periwound erythema has resolved. The wound is smaller in size as compared to prior visits. Dimensions are documented elsewhere. The patient the wound is generally pink and healthy in appearance, with no evidence of active granulation tissue. There is a small amount of bioburden. Swelling and edema in the left lower extremity appear to be well controlled, and minimal. Lipodermatosclerosis and hyperpigmentation are noted in the left gaiter area. Mild scaly dermatitis is noted in the left gaiter area. Neuro CN's II-XII intact bilaterally and moves all extremities Sensorium / Orientation: awake and alert Psych Appearance: grossly normal and appropriate Attitude: calm Activity / Motor Behavior: appropriate eye contact Speech: normal speech Mood & Affect: euthymic mood Thought Process: normal thought process Thought Content: normal thought content Attention / Concentration: attention grossly intact Debridement Note Debridement Note Wound debrided: Left lateral supramalleolar area Laterality: Left Type of Debridement: Excisional debridement Anesthesia Used: 5% Lidocaine Gel Depth: Down to and including healthy tissue and in the subcutaneous layer Percentage of wound debrided: 100 Instrument Used: 5mm curette Tissue Removed: Bioburden Severity: Fat Layer Exposed Amount of bleeding with debridement: Mild Bleeding Controlled with: Compression and gauze Patient tolerated procedure: Patient tolerated procedure well Post-Debridement Measurements and Additional Note: Post-Debridement Measurements/Treatment MICHELINE - Nurse 1 - General Ulcer Assessment Start: 04/30/22 08:13 Freq: Status: Active Protocol: LAKSHMI Activity Type Activity Date Activity User E-sign Co-sign Detail Recorded Client Recorded Date Recorded By Document 04/30/22 08:13 MW Desktop 04/30/22 08:17 MW 04/30/22 08:13 WC - Today's Visit Information Type of service Follow-up Visit (Physician/OBSTETRICAL NURSE ) Arrival Mode Wheelchair Transfer Assistance None Accompanied by self Patient Identification Verified (Name & Yes ) Patient Requires Transmission-Based No Precautions Safety Precautions NA Vital Signs Temperature (97.8 F-99.1 F) 96.9 F L Temperature Source Temporal Pulse Rate (60-100) 72 Pulse Location Monitor Respiratory Rate (12-18) 18 Respiratory rate source Observation Oxygen Delivery Method Room Air Blood Pressure (90/60-120/80) 111/67 Blood Pressure Mean 81 Source Monitor Position Sitting Blood Pressure Location Right Arm History Since Last Visit- (Skip if this is Patient's initial visit) Have you changed medications since your No last visit? Any new allergies or adverse reactions No Had a fall/change in ADL's that may No increase risk of falls Signs or symptoms of abuse and/or No neglect since last visit Have you been in the hospital since your No last visit? Has dressing in place as prescribed Yes Has compression in place as prescribed No Has offloadiing in place as prescribed N/A Experienced any changes in pain level or No management Left Footwear Regular Shoe Right Footwear Regular Shoe Pain Scale: 0-10 Numeric Is Patient Pain Free? Yes WC - Nurse 1 - General Ulcer Measurement Start: 04/30/22 08:13 Freq: Status: Active Protocol: Activity Type Activity Date Activity User E-sign Co-sign Detail Recorded Client Recorded Date Recorded By Document 04/30/22 08:13 MW Desktop 04/30/22 08:17 MW 04/30/22 08:13 Wound Center Nurse 1 #2 Left Knee -Combined with other wound No #1 Left Lower Extremity -Combined with other wound No -Current Size (cm) - Length 4.9 -Current Size (cm) - Width 4.0 -Current Size (cm) - Depth 0.2 -Total Square Cm 19.60 -Photo Taken No -Epithelialization None Present -Tunneling No -Undermining/Tunneling No -Circular Undermining No -Exudate Amt Medium -Exudate Type Serosanguineous -Wound Margin Flat & Intact -Granulation Amt Large (67-100%) -Granulation Quality Red -Slough/Fibrin Yes -Necrosis Amt Small (1-33%) -Necrotic Tissue Type Adherent Slough -Structure Exposed N/A -Texture (Sofiya-wound Skin Appearance) Assessed, Localized Edema ,Scarring -Moisture (Sofiya-wound Skin Appearance) Assessed,Dry/ Scaly -Color (Sofiya-wound Skin Appearance) Assessed -Temperature (Sofiya-wound Skin No Abnormality Appearance) (Pt Warm) -Tenderness on Palpation (Sofiya-wound No Skin Appearance) -Ulcer Cleansing Rinsed/ Irrigated with Saline -Foul Odor after Cleansing No -Anesthetic Used 4% Lidocaine Solution Lower Limb Edema Present Yes Left Calf (cm) 41.0 Left Ankle (cm) 22.2 Assessment/Plan Assessment/Plan (1) Non-pressure ulcer of left lower extremity: CODE(S): L97.929 - Non-pressure chronic ulcer of unspecified part of left lower leg with unspecified severity (2) Unspecified open wound, left lower leg, subsequent encounter: CODE(S): S81.802D - Unspecified open wound, left lower leg, subsequent encounter (3) Nonhealing nonsurgical wound with fat layer exposed: CODE(S): T14.8XXA - Other injury of unspecified body region, initial encounter (4) 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: CODE(S): Z96.653 - Presence of artificial knee joint, bilateral (5) Hyperlipidemia: CODE(S): E78.5 - Hyperlipidemia, unspecified (6) Pacemaker: CODE(S): Z95.0 - Presence of cardiac pacemaker (7) Osteoporosis: CODE(S): M81.0 - Age-related osteoporosis without current pathological fracture (8) Osteoarthritis: CODE(S): M19.90 - Unspecified osteoarthritis, unspecified site (9) COPD (chronic obstructive pulmonary disease): CODE(S): J44.9 - Chronic obstructive pulmonary disease, unspecified (10) Chronic anticoagulation: CODE(S): Z79.01 - intermediate (current) use of anticoagulants (11) Atrial fibrillation: CODE(S): I48.91 - Unspecified atrial fibrillation (12) Hypertension: CODE(S): I10 - Essential (primary) hypertension (13) Obesity: CODE(S): E66.9 - Obesity, unspecified (14) History of breast cancer: CODE(S): Z85.3 - Personal history of malignant neoplasm of breast (15) Diabetes mellitus: CODE(S): E11.9 - Type 2 diabetes mellitus without complications (16) Dementia: CODE(S): F03.90 - Unspecified dementia without behavioral disturbance PLAN: Plan This is an 86-year-old female who presented with an ulceration on the left lateral supramalleolar area. Its etiology is uncertain, and the patient denied recent trauma to the area. There was noted to be associated swelling and edema. The patient has pre-existing medical problems, which have been listed above. The patient has been instructed to elevate her lower extremities as much as possible. Elevation is to be to heart level, or higher. This is to be accomplished during sleeping hours, as well as during daytime hours. She has been advised to refrain from prolonged idle sitting. Activity has been encouraged, though enhancement of activity is unlikely to a significant degree, as the patient requires a walker for ambulation. Swab cultures were obtained for aerobic and anaerobic bacterial growth. Cultures have been positive for Proteus mirabilis, Enterobacter cloacae, and and Serratia marcescens. The pat ient was placed on Bactrim double strength p.o. twice daily for total of 10 days, which has now been completed. There has been improvement and resolution in the amount of necrotic and nonviable tissue present on the surface of the wound. We are to continue the use of Dakin's 0.25% solution, which will be used to moisten gauze, and applied topically to the wound on a daily basis. Compression is to be continued by means of Tubigrip's, striving for 20 to 30 mmHg compression which will be applied on a daily basis. We are to seek preauthorization for Therion, a skin graft substitute, which will be applied once preauthorization has been granted. Laboratory results have been obtained, with results as follows: Glucose 84, sodium 139, potassium 4.0, chloride 99, BUN 11, creatinine 0.58, calcium 9.2, albumin 3.8, total protein 6.4, AST 17, ALT 14, white blood count 5.8, hemoglobin 13.2, hematocrit 39.8, platelets 209,000. These laboratory results are from March 06, 2022. The patient has been encouraged to assure adequate oral nutritional intake. Patient is return in 1 week for reassessment. Total time: 29 minutes
[2022-05-07 08:28] VITALS: BP 139/75; PULSE 94; RESP 20; TEMP 36.4
--- NOTE | 2022-05-07 10:10 | HP.PCM_ITS ---
History of Present Illness Date of Service: 05/07/22 Chief Complaint: Ulceration of the left lateral calf History of Wound: This is an 86-year-old female who presented with an ulceration of the left lateral calf. It is located in the left lateral supra-malleolar area. The patient is a resident of [facility] in [place], [place]. She is very pleasant, conversant, and cooperative. However, she suffers from dementia and is somewhat confused. She is a poor historian with r espect to her prior health. Fortunately, some records accompanied her, revealing elements of her past medical history. According the patient, the ulceration on her left lower extremity had been present for approximately 3 weeks. She denied any traumatic events. She stated that the ulceration was painful. She claims to sleep on a flat mattress at night. However, she is not very active, and spends a great deal of each day sitting. The accompanying medical records suggest that she has recently undergone a venous duplex examination, results of which revealed no evidence of acute deep vein t hrombosis, though valvular competence was not assessed. 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 Unspecified open wound, left lower leg, subsequent encounter Wound infection Home Medications Calcium 600 + D(3) See Rx Instructions .Route .COMPLEX 02/26/22 [History Last Taken Unknown] acetaminophen 650 mg tablet 650 mg PO Q4H PRN Pain 02/26/22 [History Last Taken Unknown] albuterol 90 mcg/actuation aerosol inhaler mcg inhalation 02/26/22 [History Last Taken Unknown] anastrozole 1 mg tablet 1 mg PO DAILY 02/26/22 [History Last Taken Unknown] donepezil 10 mg tablet 10 mg PO QHS 02/26/22 [History Last Taken Unknown] donepezil 10 mg tablet 10 mg PO QHS 02/26/22 [History Last Taken Unknown] famotidine 20 mg tablet 20 mg PO BID 02/26/22 [History Last Taken Unknown] ferrous sulfate 325 mg (65 mg iron) tablet (FeroSul) 325 mg PO DAILY 02/26/22 [History Last Taken Unknown] fluticasone 100 mcg-salmeterol 50 mcg/dose blistr powdr for inhalation (Advair Diskus) 1 inh inhalation BID 02/26/22 [History Last Taken Unknown] lovastatin 20 mg tablet 20 mg PO QPM 02/26/22 [History Last Taken Unknown] metoprolol succinate 25 mg capsule sprinkle, ext. release 24 hr 25 mg PO DAILY 02/26/22 [History Last Taken Unknown] pramipexole 1 mg tablet 1 mg PO BID 02/26/22 [History Last Taken Unknown] tramadol 50 mg tablet 50 mg PO Q8H PRN Pain 02/26/22 [History Last Taken Unknown] warfarin 2.5 mg tablet 2.5 mg PO DAILY 02/26/22 [History Last Taken Unknown] Vital Signs Vital Signs Vital Signs: 05/07/22 08:28 Temperature 97.6 F L Temperature Source Temporal Pulse Rate 94 Respiratory Rate 20 H Blood Pressure 139/75 H Blood Pressure Mean 96 Blood Pressure Source Monitor Physical Exam Const alert, oriented x3, no apparent distress and well nourished Constitutional Narrative: The patient is lucid today. General Appearance: cooperative, comfortable, well kempt and well developed Orientation / Consciousness: awake, oriented to person and confused HEENT normocephalic, head/scalp atraumatic and hearing grossly normal bilaterally Head and Scalp: normal to inspection, normocephalic and atraumatic External Ear: external ears normal Eyes PERRL and EOMs intact bilaterally General Eye: normal appearance of both eyes Resp normal respiratory effort, normal air movement, no retractions and no use of accessory muscles Effort and Inspection: able to speak in complete sentences Extremity no calf tenderness General Extremity: Negative for clubbing or cyanosis Skin Wound Narrative: The wound on the left lateral supramalleolar area persists. Periwound erythema has resolved. The wound is smaller in size as compared to prior visits. Dimensions are documented elsewhere. The wound is generally pink and healthy in appearance, with evidence of active granulation tissue. There is a small amount of bioburden. Swelling and edema in the left lower extremity appear to be well controlled, and minimal. Lipodermatosclerosis and hyperpigmentation are noted in the left gaiter area. Mild scaly dermatitis is noted in the left gaiter area. Neuro CN's II-XII intact bilaterally and moves all extremities Sensorium / Orientation: awake and alert Psych Appearance: grossly normal and appropriate Attitude: calm Activity / Motor Behavior: appropriate eye contact Speech: normal speech Mood & Affect: euthymic mood Thought Process: normal thought process Thought Content: normal thought content Attention / Concentration: attention grossly intact Debridement Note Debridement Note Wound debrided: Left lateral supramalleolar area Laterality: Left Type of Debridement: Excisional debridement Anesthesia Used: 5% Lidocaine Gel Depth: Down to and including healthy tissue and in the subcutaneous layer Percentage of wound debrided: 100 Instrument Used: 5mm curette Tissue Removed: Bioburden Severity: Fat Layer Exposed Amount of bleeding with debridement: Mild Bleeding Controlled with: Compression and gauze Patient tolerated procedure: Patient tolerated procedure well Debridement Free Text: Following a routine excisional debridement, which was well-tolerated, an allograft was applied. A Therion allograft was selected, 5 cm x 6 cm in dimensions. The allograft was removed from its sterile packaging, and applied in the appropriate orientation. The entire allograft was utilized. Once in place, Adaptic Touch was applied, and anchored in place using Steri- Strips. Dry sterile gauze dressing was then applied, and a 3M 2 layer compression wrap was placed on the right lower extremity. Today's allograft application represents the first such placement of an allograft. Post-Debridement Measurements and Additional Note: Post-Debridement Measurements/Treatment - Nurse 1 - General Ulcer Assessment Start: 04/30/22 08:13 Freq: Status: Active Protocol: WC.[email or web address] Activity Type Activity Date Activity User E-sign Co-sign Detail Recorded Client Recorded Date Recorded By Document 04/30/22 08:13 MW Desktop 04/30/22 08:17 MW Document 05/07/22 08:28 DL [id number] 05/07/22 08:34 DL 04/30/22 05/07/22 08:13 08:28 - Today's Visit Information Type of service Follow-up Visit Follow-up Visit (Physician/GRADUATE ASSISTANT ATHLETIC TRAINER (Physician/GRADUATE ASSISTANT ATHLETIC TRAINER ) ) Arrival Mode Wheelchair Ambulatory, Walker Transfer Assistance None None Accompanied by self Patient Identification Verified (Name & Yes Yes ) Patient Requires Transmission-Based No Precautions Safety Precautions NA Vital Signs Temperature (97.8 F-99.1 F) 96.9 F L 97.6 F L Temperature Source Temporal Temporal Pulse Rate (60-100) 72 94 Pulse Location Monitor Monitor Respiratory Rate (12-18) 18 20 H Respiratory rate source Observation Observation Oxygen Delivery Method Room Air Blood Pressure (90/60-120/80) 111/67 139/75 H Blood Pressure Mean 81 96 Source Monitor Monitor Position Sitting Blood Pressure Location Right Arm History Since Last Visit- (Skip if this is Patient's initial visit) Have you changed medications since your No No last visit? Any new allergies or adverse reactions No No Had a fall/change in ADL's that may No No increase risk of falls Signs or symptoms of abuse and/or No No neglect since last visit Have you been in the hospital since your No No last visit? Has dressing in place as prescribed Yes No Has compression in place as prescribed No No Has offloadiing in place as prescribed N/A N/A Experienced any changes in pain level or No No management Left Footwear Regular Shoe Right Footwear Regular Shoe Pain Scale: 0-10 Numeric Is Patient Pain Free? Yes Yes WC - Nurse 1 - General Ulcer Measurement Start: 04/30/22 08:13 Freq: Status: Active Protocol: Activity Type Activity Date Activity User E-sign Co-sign Detail Recorded Client Recorded Date Recorded By Document 04/30/22 08:13 MW Desktop 04/30/22 08:17 MW Document 05/07/22 08:28 DL [id number] 05/07/22 08:34 DL 04/30/22 05/07/22 08:13 08:28 Wound Center Nurse 1 #2 Left Knee -Combined with other wound No #1 Left Lower Extremity -Combined with other wound No -Current Size (cm) - Length 4.9 4.8 -Current Size (cm) - Width 4.0 3.5 -Current Size (cm) - Depth 0.2 0.2 -Total Square Cm 19.60 16.80 -Photo Taken No Yes -Epithelialization None Present -Tunneling No -Undermining/Tunneling No -Circular Undermining No -Exudate Amt Medium Medium -Exudate Type Serosanguineous Serosanguineous -Wound Margin Flat & Intact Thickened -Granulation Amt Large (67-100%) Large (67-100%) -Granulation Quality Red Red -Slough/Fibrin Yes -Necrosis Amt Small (1-33%) Small (1-33%) -Necrotic Tissue Type Adherent Slough Adherent Slough -Structure Exposed N/A N/A -Texture (Sofiya-wound Skin Appearance) Assessed, Scarring Localized Edema ,Scarring -Moisture (Sofiya-wound Skin Appearance) Assessed,Dry/ Dry/Scaly Scaly -Color (Sofiya-wound Skin Appearance) Assessed Hemosiderin Staining -Temperature (Sofiya-wound Skin No Abnormality No Abnormality Appearance) (Pt Warm) (Pt Warm) -Tenderness on Palpation (Sofiya-wound No No Skin Appearance) -Ulcer Cleansing Rinsed/ Wound Cleanser Irrigated with Saline -Foul Odor after Cleansing No No -Anesthetic Used 4% Lidocaine 5% Lidocaine Solution Gel Lower Limb Edema Present Yes Left Calf (cm) 41.0 44 Left Ankle (cm) 22.2 21.5 WC - Nurse 2 - General Ulcer CM Notes Start: 04/30/22 08:13 Freq: Status: Active Protocol: Activity Type Activity Date Activity User E-sign Co-sign Detail Recorded Client Recorded Date Recorded By Document 04/30/22 09:57 PL [id number] 04/30/22 10:00 PL Document 05/07/22 08:59 PL [id number] 05/07/22 09:01 PL 04/30/22 05/07/22 09:57 08:59 Wound Center Nurse 2 #2 Left Knee -Procedure Performed No -Undermining/Tunneling No -Wound/Ulcer Outcome Healed- Epithelialized #1 Left Lower Extremity -Time 08:23 08:40 -Correct Patient Yes Yes -Correct Side, Site, Position Yes Yes -Correct Procedure Yes Yes -Procedure Performed Yes Yes -Type of Procedure Debridement Debridement -Clinical Debridement Subcutaneous Subcutaneous -Tissue Removed Subcutaneous Subcutaneous -Post Debridement (cm) - Length 4.9 4.8 -Post Debridement (cm) - Width 4.0 3.5 -Post Debridement (cm) - Depth 0.2 0.2 -Total Square (Post) (cm) 19.60 16.80 -Area of Debridement (cm) - Length 4.9 4.8 -Area of Debridement (cm) - Width 4.0 3.5 -Total Square (Area) (cm) 19.60 16.80 -Tunneling No No -Undermining/Tunneling No No -Circular Undermining No No -Wound/Ulcer Outcome Not Healed Not Healed -Ulcer Cleansing Rinsed/ Rinsed/ Irrigated with Irrigated with Saline Saline -Foul Odor after Cleansing No No -Bioengineered Tissue No No -Bleeding Controlled with Pressure Pressure -Treatment Response Procedure Procedure Tolerated Well Tolerated Well -Debridement - Subq, 1st 20sq cm Yes No -Apply Skin Sub - 1st 25 sq cm - Legs 1 -Therion (per sq cm) 30 Pain Scale: 0-10 Numeric Is Patient Pain Free? Yes Yes - Nurse 3 - General Ulcer D/C NN Start: 04/30/22 08:13 Freq: Status: Active Protocol: Activity Type Activity Date Activity User E-sign Co-sign Detail Recorded Client Recorded Date Recorded By Document 04/30/22 10:00 PL [id number] 04/30/22 10:01 PL Document 05/07/22 08:53 DL [id number] 05/07/22 08:55 DL 04/30/22 05/07/22 10:00 08:53 Wound Care Nurse 3 #1 Left Lower Extremity -Ulcer Cleansing Soap and Water Rinsed/ Irrigated with Saline -Foul Odor after Cleansing No No -Negative Pressure Wound Therapy N/A -Other Dressing Moist gauze superabsorber -Primary Dressing Covered/Secured with Dry Gauze & Dry Gauze Roll Gauze Treatment Response Procedure Tolerated Well Pain Scale: 0-10 Numeric Is Patient Pain Free? Yes Yes - Visit Discharge Discharge Condition Stable Stable Ambulatory Status Wheelchair Ambulatory, Walker Transportation [facility] Orders Sent Yes Assessment/Plan Assessment/Plan (1) Non-pressure ulcer of left lower extremity: CODE(S): L97.929 - Non-pressure chronic ulcer of unspecified part of left lower leg with unspecified severity (2) Unspecified open wound, left lower leg, subsequent encounter: CODE(S): S81.802D - Unspecified open wound, left lower leg, subsequent en counter (3) Nonhealing nonsurgical wound with fat layer exposed: CODE(S): T14.8XXA - Other injury of unspecified body region, initial encounter (4) 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: CODE(S): Z96.653 - Presence of artificial knee joint, bilateral (5) Hyperlipidemia: CODE(S): E78.5 - Hyperlipidemia, unspecified (6) Pacemaker: CODE(S): Z95.0 - Presence of cardiac pacemaker (7) Osteoporosis: CODE(S): M81.0 - Age-related osteoporosis without current pathological fracture (8) Osteoarthritis: CODE(S): M19.90 - Unspecified osteoarthritis, unspecified site (9) COPD (chronic obstructive pulmonary disease): CODE(S): J44.9 - Chronic obstructive pulmonary disease, unspecified (10) Chronic anticoagulation: CODE(S): Z79.01 - USP (current) use of anticoagulants (11) Atrial fibrillation: CODE(S): I48.91 - Unspecified atrial fibrillation (12) Hypertension: CODE(S): I10 - Essential (primary) hypertension (13) Obesity: CODE(S): E66.9 - Obesity, unspecified (14) History of breast cancer: CODE(S): Z85.3 - Personal history of malignant neoplasm of breast (15) Diabetes mellitus: CODE(S): E11.9 - Type 2 diabetes mellitus without complications (16) Dementia: CODE(S): F03.90 - Unspecified dementia without behavioral disturbance PLAN: Plan This is an 86-year-old female who presented with an ulceration on the left lateral supramalleolar area. Its etiology is uncertain, and the patient denied recent trauma to the area. There was noted to be associated swelling and edema. The patient has pre-existing medical problems, which have been listed above. The patient has been instructed to elevate her lower extremities as much as possible. Elevation is to be to heart level, or higher. This is to be accomplished during sleeping hours, as well as during daytime hours. She has been advised to refrain from prolonged idle sitting. Activity has been encouraged, though enhancement of activity is unlikely to a significant degree, as the patient requires a walker for ambulation. Swab cultures were obtained for aerobic and anaerobic bacterial growth. Cultures have been positive for Proteus mirabilis, Enterobacter cloacae, and and Serratia marcescens. The patient was placed on Bactrim double strength p.o. twice daily for total of 10 days, which has now been completed. There has been improvement and resolution in the amount of necrotic and nonviable tissue present on the surface of the wound. A Therion allograft was placed today, the first such allograft placement. Compression has been applied by means of a 3M 2 layer compression wrap, which will be changed twice weekly. Laboratory results have been obtained, with results as follows: Glucose 84, sodium 139, potassium 4.0, chloride 99, BUN 11, creatinine 0.58, calcium 9.2, albumin 3.8, total protein 6.4, AST 17, ALT 14, white blood count 5.8, hemoglobin 13.2, hematocrit 39.8, platelets 209,000. These laboratory results are from March 06, 2022. The patient has been encouraged to assure adequate oral nutritional intake. Patient is return in 1 week for reassessment. Serial allograft placements are antici pated. Total time: 28 minutes
[2022-05-14 08:32] VITALS: BP 138/67; PULSE 78; TEMP 36.7
--- NOTE | 2022-05-14 12:32 | HP.PCM_ITS ---
History of Present Illness Date of Service: 05/14/22 Chief Complaint: Ulceration of the left lateral calf History of Wound: This is an 86-year-old female who presented with an ulceration of the left lateral calf. It is located in the left lateral supra-malleolar area. The patient is a resident of [facility] in [place], [place]. She is very pleasant, conversant, and cooperative. However, she suffers from dementia and is somewhat confused. She is a poor historian with r espect to her prior health. Fortunately, some records accompanied her, revealing elements of her past medical history. According the patient, the ulceration on her left lower extremity had been present for approximately 3 weeks. She denied any traumatic events. She stated that the ulceration was painful. She claims to sleep on a flat mattress at night. However, she is not very active, and spends a great deal of each day sitting. The accompanying medical records suggest that she has recently undergone a venous duplex examination, results of which revealed no evidence of acute deep vein t hrombosis, though valvular competence was not assessed. 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 Unspecified open wound, left lower leg, subsequent encounter Wound infection Home Medications Calcium 600 + D(3) See Rx Instructions .Route .COMPLEX 02/26/22 [History Last Taken Unknown] acetaminophen 650 mg tablet 650 mg PO Q4H PRN Pain 02/26/22 [History Last Taken Unknown] albuterol 90 mcg/actuation aerosol inhaler mcg inhalation 02/26/22 [History Last Taken Unknown] anastrozole 1 mg tablet 1 mg PO DAILY 02/26/22 [History Last Taken Unknown] donepezil 10 mg tablet 10 mg PO QHS 02/26/22 [History Last Taken Unknown] donepezil 10 mg tablet 10 mg PO QHS 02/26/22 [History Last Taken Unknown] famotidine 20 mg tablet 20 mg PO BID 02/26/22 [History Last Taken Unknown] ferrous sulfate 325 mg (65 mg iron) tablet (FeroSul) 325 mg PO DAILY 02/26/22 [History Last Taken Unknown] fluticasone 100 mcg-salmeterol 50 mcg/dose blistr powdr for inhalation (Advair Diskus) 1 inh inhalation BID 02/26/22 [History Last Taken Unknown] lovastatin 20 mg tablet 20 mg PO QPM 02/26/22 [History Last Taken Unknown] metoprolol succinate 25 mg capsule sprinkle, ext. release 24 hr 25 mg PO DAILY 02/26/22 [History Last Taken Unknown] pramipexole 1 mg tablet 1 mg PO BID 02/26/22 [History Last Taken Unknown] tramadol 50 mg tablet 50 mg PO Q8H PRN Pain 02/26/22 [History Last Taken Unknown] warfarin 2.5 mg tablet 2.5 mg PO DAILY 02/26/22 [History Last Taken Unknown] Vital Signs Vital Signs Vital Signs: 05/14/22 08:32 Temperature 98.0 F Temperature Source Temporal Pulse Rate 78 Blood Pressure 138/67 H Blood Pressure Mean 90 Blood Pressure Source Monitor Blood Pressure Position Sitting Blood Pressure Location Right Arm Physical Exam Const alert, oriented x3, no apparent distress and well nourished Constitutional Narrative: The patient is lucid today. General Appearance: cooperative, comfortable, well kempt and well developed Orientation / Consciousness: awake, oriented to person and oriented to place HEENT normocephalic, head/scalp atraumatic and hearing grossly normal bilaterally Head and Scalp: normal to inspection, normocephalic and atraumatic External Ear: external ears normal Eyes PERRL and EOMs intact bilaterally General Eye: normal appearance of both eyes Resp normal respiratory effort, normal air movement, no retractions and no use of accessory muscles Effort and Inspection: able to speak in complete sentences Extremity no calf tenderness General Extremity: Negative for clubbing or cyanosis Skin Wound Narrative: The wound on the left lateral supramalleolar area persists. Periwound erythema has resolved. The wound is smaller in size as compared to prior visits. D imensions are documented elsewhere. The wound is generally pink and healthy in appearance, with evidence of active granulation tissue. There is a small amount of bioburden. Swelling and edema in the left lower extremity appear to be well controlled, and minimal. Lipodermatosclerosis and hyperpigmentation are noted in the left gaiter area. Neuro CN's II-XII intact bilaterally and moves all extremities Sensorium / Orientation: awake, alert, oriented to person and oriented to place Psych Appearance: grossly normal and appropriate Attitude: calm Activity / Motor Behavior: appropriate eye contact Speech: normal speech Mood & Affect: euthymic mood Thought Process: normal thought process Thought Content: normal thought content Attention / Concentration: attention grossly intact Debridement Note Debridement Note Wound debrided: Left lateral supramalleolar calf Laterality: Left Type of Debridement: Excisional debridement Anesthesia Used: 5% Lidocaine Gel Depth: Down to and including healthy tissue and in the subcutaneous layer Percentage of wound debrided: 100 Instrument Used: 5mm curette Severity: Fat Layer Exposed Amount of bleeding with debridement: Mild Bleeding Controlled with: Compression and gauze Patient tolerated procedure: Patient tolerated procedure well Debridement Free Text: Following a routine excisional debridement, which was well-tolerated by the patient, a 4 cm x 4 cm Therion allograft was applied. The entirety of the graft was placed. The allograft was placed in the appropriate orientation. Adaptic Touch was then applied, and anchored in place using Steri- Strips. Dry sterile gauze dressing was then placed, and the left lower extremity was then wrapped with a 3M 2 layer compression wrap, which will be changed twice weekly. This represents the second such allograft application. Post-Debridement Measurements and Additional Note: Post-Debridement Measurements/Treatment - Nurse 1 - General Ulcer Assessment Start: 04/30/22 08:13 Freq: Status: Active Protocol: WC.LOWEXT Activity Type Activity Date Activity User E-sign Co-sign Detail Recorded Client Recorded Date Recorded By Document 04/30/22 08:13 MW Desktop 04/30/22 08:17 MW Document 05/07/22 08:28 DL [id number] 05/07/22 08:34 DL Document 05/14/22 08:32 KR [id number] 05/14/22 08:36 KR 04/30/22 05/07/22 05/14/22 08:13 08:28 08:32 - Today's Visit Information Type of service Follow-up Visit Follow-up Visit Initial Visit (Physician/SCRAP SAWYER (Physician/SCRAP SAWYER ) ) Arrival Mode Wheelchair Ambulatory, Ambulatory, Walker Walker Transfer Assistance None None Accompanied by self Patient Identification Verified (Name & Yes Yes Yes ) Patient Requires Transmission-Based No Precautions Safety Precautions NA Vital Signs Temperature (97.8 F-99.1 F) 96.9 F L 97.6 F L 98.0 F Temperature Source Temporal Temporal Temporal Pulse Rate (60-100) 72 94 78 Pulse Location Monitor Monitor Monitor Respiratory Rate (12-18) 18 20 H Respiratory rate source Observation Observation Oxygen Delivery Method Room Air Blood Pressure (90/60-120/80) 111/67 139/75 H 138/67 H Blood Pressure Mean 81 96 90 Source Monitor Monitor Monitor Position Sitting Sitting Blood Pressure Location Right Arm Right Arm History Since Last Visit- (Skip if this is Patient's initial visit) Have you changed medications since your No No No last visit? Any new allergies or adverse reactions No No No Had a fall/change in ADL's that may No No No increase risk of falls Signs or symptoms of abuse and/or No No No neglect since last visit Have you been in the hospital since your No No No last visit? Has dressing in place as prescribed Yes No Yes Has compression in place as prescribed No No No Has offloadiing in place as prescribed N/A N/A N/A Experienced any changes in pain level or No No No management Left Footwear Regular Shoe Regular Shoe Right Footwear Regular Shoe Regular Shoe Pain Scale: 0-10 Numeric Is Patient Pain Free? Yes Yes Yes WC - Nurse 1 - General Ulcer Measurement Start: 04/30/22 08:13 Freq: Status: Active Protocol: Activity Type Activity Date Activity User E-sign Co-sign Detail Recorded Client Recorded Date Recorded By Document 04/30/22 08:13 MW Desktop 04/30/22 08:17 MW Document 05/07/22 08:28 DL [id number] 05/07/22 08:34 DL Document 05/14/22 08:32 KR [id number] 05/14/22 08:36 KR 04/30/22 05/07/22 05/14/22 08:13 08:28 08:32 Wound Center Nurse 1 #2 Left Knee -Combined with other wound No #1 Left Lower Extremity -Combined with other wound No -Current Size (cm) - Length 4.9 4.8 3.9 -Current Size (cm) - Width 4.0 3.5 1.8 -Current Size (cm) - Depth 0.2 0.2 0.1 -Total Square Cm 19.60 16.80 7.02 -Photo Taken No Yes -Epithelialization None Present -Tunneling No -Undermining/Tunneling No -Circular Undermining No -Exudate Amt Medium Medium Small -Exudate Type Serosanguineous Serosanguineous Serosanguineous -Wound Margin Flat & Intact Thickened Distinct, Outline Attached -Granulation Amt Large (67-100%) Large (67-100%) Medium (34-66%) -Granulation Quality Red Red Red -Slough/Fibrin Yes -Necrosis Amt Small (1-33%) Small (1-33%) Medium (34-66%) -Necrotic Tissue Type Adherent Slough Adherent Slough Adherent Slough -Structure Exposed N/A N/A -Texture (Sofiya-wound Skin Appearance) Assessed, Scarring Assessed, Localized Edema Scarring ,Scarring -Moisture (Sofiya-wound Skin Appearance) Assessed,Dry/ Dry/Scaly Assessed,Dry/ Scaly Scaly -Color (Sofiya-wound Skin Appearance) Assessed Hemosiderin No Abnormality, Staining Assessed -Temperature (Sofiya-wound Skin No Abnormality No Abnormality No Abnormality Appearance) (Pt Warm) (Pt Warm) (Pt Warm) -Tenderness on Palpation (Sofiya-wound No No No Skin Appearance) -Ulcer Cleansing Rinsed/ Wound Cleanser Soap and Water Irrigated with Saline -Foul Odor after Cleansing No No No -Anesthetic Used 4% Lidocaine 5% Lidocaine 5% Lidocaine Solution Gel Gel Lower Limb Edema Present Yes Left Calf (cm) 41.0 44 46 Left Ankle (cm) 22.2 21.5 22 WC - Nurse 2 - General Ulcer CM Notes Start: 04/30/22 08:13 Freq: Status: Active Protocol: Activity Type Activity Date Activity User E-sign Co-sign Detail Recorded Client Recorded Date Recorded By Document 04/30/22 09:57 PL [id number] 04/30/22 10:00 PL Document 05/07/22 08:59 PL [id number] 05/07/22 09:01 PL Edit Result 05/07/22 08:59 PL (1) [id number] 05/07/22 10:13 PL Document 05/14/22 09:29 PL [id number] 05/14/22 09:30 PL (1) #1 Left Lower Extremity - Bioengineered Tissue No => Yes - Type of Bioengineered Tissue => Therion - Expiration Date => 12/04/22 - Product Lot Number => [id number] - Percent Used => 100 04/30/22 05/07/22 05/14/22 09:57 08:59 09:29 Wound Center Nurse 2 #2 Left Knee -Procedure Performed No -Undermining/Tunneling No -Wound/Ulcer Outcome Healed- Epithelialized #1 Left Lower Extremity -Time 08:23 08:40 08:45 -Correct Patient Yes Yes Yes -Correct Side, Site, Position Yes Yes Yes -Correct Procedure Yes Yes Yes -Procedure Performed Yes Yes Yes -Type of Procedure Debridement Debridement Debridement -Clinical Debridement Subcutaneous Subcutaneous Subcutaneous -Tissue Removed Subcutaneous Subcutaneous Subcutaneous -Post Debridement (cm) - Length 4.9 4.8 4.3 -Post Debridement (cm) - Width 4.0 3.5 1.8 -Post Debridement (cm) - Depth 0.2 0.2 0.1 -Total Square (Post) (cm) 19.60 16.80 7.74 -Area of Debridement (cm) - Length 4.9 4.8 4.3 -Area of Debridement (cm) - Width 4.0 3.5 1.8 -Total Square (Area) (cm) 19.60 16.80 7.74 -Tunneling No No No -Undermining/Tunneling No No No -Circular Undermining No No No -Wound/Ulcer Outcome Not Healed Not Healed Not Healed -Ulcer Cleansing Rinsed/ Rinsed/ Rinsed/ Irrigated with Irrigated with Irrigated with Saline Saline Saline -Foul Odor after Cleansing No No No -Bioengineered Tissue No Yes Yes -Type of Bioengineered Tissue Therion Therion -Expiration Date 12/04/22 08/27/23 -Product Lot Number [id number] -Percent Used 100 100 -Bleeding Controlled with Pressure Pressure Pressure -Treatment Response Procedure Procedure Procedure Tolerated Well Tolerated Well Tolerated Well -Debridement - Subq, 1st 20sq cm Yes No No -Apply Skin Sub - 1st 25 sq cm - Legs 1 1 -Therion (per sq cm) 30 16 Pain Scale: 0-10 Numeric Is Patient Pain Free? Yes Yes Yes WC - Nurse 3 - General Ulcer D/C NN Start: 04/30/22 08:13 Freq: Status: Active Protocol: Activity Type Activity Date Activity User E-sign Co-sign Detail Recorded Client Recorded Date Recorded By Document 04/30/22 10:00 PL [id number] 04/30/22 10:01 PL Document 05/07/22 08:53 DL [id number] 05/07/22 08:55 DL 04/30/22 05/07/22 10:00 08:53 Wound Care Nurse 3 #1 Left Lower Extremity -Ulcer Cleansing Soap and Water Rinsed/ Irrigated with Saline -Foul Odor after Cleansing No No -Negative Pressure Wound Therapy N/A -Other Dressing Moist gauze superabsorber -Primary Dressing Covered/Secured with Dry Gauze & Dry Gauze Roll Gauze Treatment Response Procedure Tolerated Well Pain Scale: 0-10 Numeric Is Patient Pain Free? Yes Yes WC - Visit Discharge Discharge Condition Stable Stable Ambulatory Status Wheelchair Ambulatory, Walker Transportation Private [facility] Type Operations Support Manager Care Facility Orders Sent Yes Assessment/Plan Assessment/Plan (1) Non-pressure ulcer of left lower extremity: CODE(S): L97.929 - Non-pressure chronic ulcer of unspecified part of left lower leg with unspecified severity (2) Unspecified open wound, left lower leg, subsequent encounter: CODE(S): S81.802D - Unspecified open wound, left lower leg, subsequent encounter (3) Nonhealing nonsurgical wound with fat layer exposed: CODE(S): T14.8XXA - Other injury of unspecified body region, initial encounter (4) 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: CODE(S): Z96.653 - Presence of artificial knee joint, bilateral (5) Hyperlipidemia: CODE(S): E78.5 - Hyperlipidemia, unspecified (6) Pacemaker: CODE(S): Z95.0 - Presence of cardiac pacemaker (7) Osteoporosis: CODE(S): M81.0 - Age-related osteoporosis without current pathological fracture (8) Osteoarthritis: CODE(S): M19.90 - Unspecified osteoarthritis, unspecified site (9) COPD (chronic obstructive pulmonary disease): CODE(S): J44.9 - Chronic obstructive pulmonary disease, unspecified (10) Chronic anticoagulation: CODE(S): Z79.01 - senior living (current) use of anticoagulants (11) Atrial fibrillation: CODE(S): I48.91 - Unspecified atrial fibrillation (12) Hypertension: CODE(S): I10 - Essential (primary) hypertension (13) Obesity: CODE(S): E66.9 - Obesity, unspecified (14) History of breast cancer: CODE(S): Z85.3 - Personal history of malignant neoplasm of breast (15) Diabetes mellitus: CODE(S): E11.9 - Type 2 diabetes mellitus without complications (16) Dementia: CODE(S): F03.90 - Unspecified dementia without behavioral disturbance PLAN: Plan This is an 86-year-old female who presented with an ulceration on the left lateral supramalleolar area. Its etiology is uncertain, and the patient denied recent trauma to the area. There was noted to be associated swelling and edema. The patient has pre-existing medical problems, which have been listed above. The patient has been instructed to elevate her lower extremities as much as possible. Elevation is to be to heart level, or higher. This is to be accomplished during sleeping hours, as well as during daytime hours. She has been advised to refrain from prolonged idle sitting. Activity has been encouraged, though enhancement of activity is unlikely to a significant degree, as the patient requires a walker for ambulation. Swab cultures were obtained for aerobic and anaerobic bacterial growth. Cultures have been positive for Proteus mirabilis, Enterobacter cloacae, and and Serratia marcescens. The patient was placed on Bactrim double strength p.o. twice daily for total of 10 days, which has now been completed. There has been improvement and resolution in the amount of necrotic and nonviable tissue present on the surface of the wound. A Therion allograft was placed today, the 2nd such allograft placement. Compression has been applied by means of a 3M 2 layer compression wrap, which will be changed twice weekly. Laboratory results have been obtained, with results as follows: Glucose 84, sodium 139, potassium 4.0, chloride 99, BUN 11, creatinine 0.58, calcium 9.2, albumin 3.8, total protein 6.4, AST 17, ALT 14, white blood count 5.8, hemoglobin 13.2, hematocrit 39.8, platelets 209,000. These laboratory results are from March 06, 2022. The patient has been encouraged to assure adequate oral nutritional intake. Patient is to return in 1 week for reassessment. Serial allograft placements are anticipated. Total time: 29 minutes
[2022-05-21 08:32] VITALS: BP 132/80; PULSE 83; RESP 18; TEMP 37
--- NOTE | 2022-05-22 07:37 | HP.PCM_ITS ---
History of Present Illness Date of Service: 05/21/22 Chief Complaint: Ulceration of the left lateral calf History of Wound: This is an 86-year-old female who presented with an ulceration of the left lateral calf. It is located in the left lateral supra-malleolar area. The patient is a resident of [facility] in [place], [place]. She is very pleasant, conversant, and cooperative. However, she suffers from dementia and is somewhat confused. She is a poor historian with r espect to her prior health. Fortunately, some records accompanied her, revealing elements of her past medical history. According the patient, the ulceration on her left lower extremity had been present for approximately 3 weeks. She denied any traumatic events. She stated that the ulceration was painful. She claims to sleep on a flat mattress at night. However, she is not very active, and spends a great deal of each day sitting. The accompanying medical records suggest that she has recently undergone a venous duplex examination, results of which revealed no evidence of acute deep vein t hrombosis, though valvular competence was not assessed. 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 Unspecified open wound, left lower leg, subsequent encounter Wound infection Home Medications Calcium 600 + D(3) See Rx Instructions .Route .COMPLEX 02/26/22 [History Last Taken Unknown] acetaminophen 650 mg tablet 650 mg PO Q4H PRN Pain 02/26/22 [History Last Taken Unknown] albuterol 90 mcg/actuation aerosol inhaler mcg inhalation 02/26/22 [History Last Taken Unknown] anastrozole 1 mg tablet 1 mg PO DAILY 02/26/22 [History Last Taken Unknown] donepezil 10 mg tablet 10 mg PO QHS 02/26/22 [History Last Taken Unknown] donepezil 10 mg tablet 10 mg PO QHS 02/26/22 [History Last Taken Unknown] famotidine 20 mg tablet 20 mg PO BID 02/26/22 [History Last Taken Unknown] ferrous sulfate 325 mg (65 mg iron) tablet (FeroSul) 325 mg PO DAILY 02/26/22 [History Last Taken Unknown] fluticasone 100 mcg-salmeterol 50 mcg/dose blistr powdr for inhalation (Advair Diskus) 1 inh inhalation BID 02/26/22 [History Last Taken Unknown] lovastatin 20 mg tablet 20 mg PO QPM 02/26/22 [History Last Taken Unknown] metoprolol succinate 25 mg capsule sprinkle, ext. release 24 hr 25 mg PO DAILY 02/26/22 [History Last Taken Unknown] pramipexole 1 mg tablet 1 mg PO BID 02/26/22 [History Last Taken Unknown] tramadol 50 mg tablet 50 mg PO Q8H PRN Pain 02/26/22 [History Last Taken Unknown] warfarin 2.5 mg tablet 2.5 mg PO DAILY 02/26/22 [History Last Taken Unknown] Vital Signs Vital Signs Vital Signs: 05/21/22 08:32 Temperature 98.6 F Temperature Source Temporal Pulse Rate 83 Respiratory Rate 18 Blood Pressure 132/80 H Blood Pressure Mean 97 Blood Pressure Source Monitor Physical Exam Const alert, oriented x3, no apparent distress and well nourished Constitutional Narrative: The patient is lucid today. General Appearance: cooperative, comfortable, well kempt and well developed Orientation / Consciousness: awake, oriented to person and oriented to place HEENT normocephalic, head/scalp atraumatic and hearing grossly normal bilaterally Head and Scalp: normal to inspection, normocephalic and atraumatic External Ear: external ears normal Eyes PERRL and EOMs intact bilaterally General Eye: normal appearance of both eyes Resp normal respiratory effort, normal air movement, no retractions and no use of accessory muscles Effort and Inspection: able to speak in complete sentences Extremity no calf tenderness General Extremity: Negative for clubbing or cyanosis Skin Wound Narrative: The wound on the left lateral supramalleolar area persists. Periwound erythema has resolved. The wound is smaller in size as compared to prior visits. Dimensions are documented elsewhere. The wound is generally pink and healthy in appearance, with islands of active granulation tissue. There is a small amount of bioburden. Swelling and edema in the left lower extremity appear to be well controlled, and minimal. Lipodermatosclerosis and hyperpigmentation are noted in the left gaiter area. Neuro CN's II-XII intact bilaterally, moves all extremities and no focal motor deficits Sensorium / Orientation: awake, alert, oriented to person and oriented to place Psych Appearance: grossly normal and appropriate Attitude: calm Activity / Motor Behavior: appropriate eye contact Speech: normal speech Mood & Affect: euthymic mood Thought Process: normal thought process Thought Content: normal thought content Attention / Concentration: attention grossly intact Debridement Note Debridement Note Wound debrided: Left lateral supramalleolar calf Laterality: Left Type of Debridement: Excisional debridement Anesthesia Used: 5% Lidocaine Gel Depth: Down to and including healthy tissue and in the subcutaneous layer Percentage of wound debrided: 100 Instrument Used: 5mm curette Severity: Fat Layer Exposed Amount of bleeding with debridement: Mild Bleeding Controlled with: Compression and gauze Patient tolerated procedure: Patient tolerated procedure well Debridement Free Text: Following a routine excisional debridement, which was well-tolerated by the patient, a 4 cm x 4 cm Therion allograft was applied. The entirety of the graft was placed. The allograft was placed in the appropriate orientation. Adaptic Touch was then applied, and anchored in place using Steri-Strips. Dry sterile gauze dressing was then placed, and the left lower extremity was then wrapped with a 3M 2 layer compression wrap, which will be changed twice weekly. This represents the third such allograft application. Post-Debridement Measurements and Additional Note: Post-Debridement Measurements/Treatment - Nurse 1 - General Ulcer Assessment Start: 04/30/22 08:13 Freq: Status: Active Protocol: MICHELINE.RIGOBERTOEXNithin Activity Type Activity Date Activity User E-sign Co-sign Detail Recorded Client Recorded Date Recorded By Document 04/30/22 08:13 MW Desktop 04/30/22 08:17 MW Document 05/07/22 08:28 DL [id number] 05/07/22 08:34 DL Document 05/14/22 08:32 KR [id number] 05/14/22 08:36 KR Document 05/21/22 08:32 DL [id number] 05/21/22 08:38 DL 04/30/22 05/07/22 05/14/22 08:13 08:28 08:32 - Today's Visit Information Type of service Follow-up Visit Follow-up Visit Initial Visit (Physician/EAR NOSE THROAT SURGEON (Physician/EAR NOSE THROAT SURGEON ) ) Arrival Mode Wheelchair Ambulatory, Ambulatory, Walker Walker Transfer Assistance None None Accompanied by self Patient Identification Verified (Name & Yes Yes Yes ) Patient Requires Transmission-Based No Precautions Safety Precautions NA Vital Signs Temperature (97.8 F-99.1 F) 96.9 F L 97.6 F L 98.0 F Temperature Source Temporal Temporal Temporal Pulse Rate (60-100) 72 94 78 Pulse Location Monitor Monitor Monitor Respiratory Rate (12-18) 18 20 H Respiratory rate source Observation Observation Oxygen Delivery Method Room Air Blood Pressure (90/60-120/80) 111/67 139/75 H 138/67 H Blood Pressure Mean 81 96 90 Source Monitor Monitor Monitor Position Sitting Sitting Blood Pressure Location Right Arm Right Arm History Since Last Visit- (Skip if this is Patient's initial visit) Have you changed medications since your No No No last visit? Any new allergies or adverse reactions No No No Had a fall/change in ADL's that may No No No increase risk of falls Signs or symptoms of abuse and/or No No No neglect since last visit Have you been in the hospital since your No No No last visit? Has dressing in place as prescribed Yes No Yes Has compression in place as prescribed No No No Has offloadiing in place as prescribed N/A N/A N/A Experienced any changes in pain level or No No No management Left Footwear Regular Shoe Regular Shoe Right Footwear Regular Shoe Regular Shoe Pain Scale: 0-10 Numeric Is Patient Pain Free? Yes Yes Yes 05/21/22 08:32 WC - Today's Visit Information Type of service Follow-up Visit (Physician/EAR NOSE THROAT SURGEON ) Arrival Mode Ambulatory, Walker Transfer Assistance None Accompanied by Patient Identification Verified (Name & Yes ) Patient Requires Transmission-Based No Precautions Safety Precautions Fall Prevention Vital Signs Temperature (97.8 F-99.1 F) 98.6 F Temperature Source Temporal Pulse Rate (60-100) 83 Pulse Location Monitor Respiratory Rate (12-18) 18 Respiratory rate source Observation Oxygen Delivery Method Blood Pressure (90/60-120/80) 132/80 H Blood Pressure Mean 97 Source Monitor Position Blood Pressure Location History Since Last Visit- (Skip if this is Patient's initial visit) Have you changed medications since your No last visit? Any new allergies or adverse reactions No Had a fall/change in ADL's that may No increase risk of falls Signs or symptoms of abuse and/or No neglect since last visit Have you been in the hospital since your Yes last visit? Has dressing in place as prescribed Yes Has compression in place as prescribed Yes Has offloadiing in place as prescribed N/A Experienced any changes in pain level or No management Left Footwear Right Footwear Pain Scale: 0-10 Numeric Is Patient Pain Free? Yes WC - Nurse 1 - General Ulcer Measurement Start: 04/30/22 08:13 Freq: Status: Active Protocol: Activity Type Activity Date Activity User E-sign Co-sign Detail Recorded Client Recorded Date Recorded By Document 04/30/22 08:13 MW Desktop 04/30/22 08:17 MW Document 05/07/22 08:28 DL [id number] 05/07/22 08:34 DL Document 05/14/22 08:32 KR [id number] 05/14/22 08:36 KR Document 05/21/22 08:32 DL [id number] 05/21/22 08:38 DL 04/30/22 05/07/22 05/14/22 08:13 08:28 08:32 Wound Center Nurse 1 #2 Left Knee -Combined with other wound No #1 Left Lower Extremity -Combined with other wound No -Current Size (cm) - Length 4.9 4.8 3.9 -Current Size (cm) - Width 4.0 3.5 1.8 -Current Size (cm) - Depth 0.2 0.2 0.1 -Total Square Cm 19.60 16.80 7.02 -Photo Taken No Yes -Epithelialization None Present -Tunneling No -Undermining/Tunneling No -Circular Undermining No -Exudate Amt Medium Medium Small -Exudate Type Serosanguineous Serosanguineous Serosanguineous -Wound Margin Flat & Intact Thickened Distinct, Outline Attached -Granulation Amt Large (67-100%) Large (67-100%) Medium (34-66%) -Granulation Quality Red Red Red -Slough/Fibrin Yes -Necrosis Amt Small (1-33%) Small (1-33%) Medium (34-66%) -Necrotic Tissue Type Adherent Slough Adherent Slough Adherent Slough -Structure Exposed N/A N/A -Texture (Sofiya-wound Skin Appearance) Assessed, Scarring Assessed, Localized Edema Scarring ,Scarring -Moisture (Sofiya-wound Skin Appearance) Assessed,Dry/ Dry/Scaly Assessed,Dry/ Scaly Scaly -Color (Sofiya-wound Skin Appearance) Assessed Hemosiderin No Abnormality, Staining Assessed -Temperature (Sofiya-wound Skin No Abnormality No Abnormality No Abnormality Appearance) (Pt Warm) (Pt Warm) (Pt Warm) -Tenderness on Palpation (Sofiya-wound No No No Skin Appearance) -Ulcer Cleansing Rinsed/ Wound Cleanser Soap and Water Irrigated with Saline -Foul Odor after Cleansing No No No -Anesthetic Used 4% Lidocaine 5% Lidocaine 5% Lidocaine Solution Gel Gel Lower Limb Edema Present Yes Left Calf (cm) 41.0 44 46 Left Ankle (cm) 22.2 21.5 22 05/21/22 08:32 Wound Center Nurse 1 #2 Left Knee -Combined with other wound #1 Left Lower Extremity -Combined with other wound -Current Size (cm) - Length 3.9 -Current Size (cm) - Width 1.4 -Current Size (cm) - Depth 0.2 -Total Square Cm 5.46 -Photo Taken Yes -Epithelialization -Tunneling -Undermining/Tunneling -Circular Undermining -Exudate Amt Medium -Exudate Type Serosanguineous -Wound Margin Distinct, Outline Attached -Granulation Amt Medium (34-66%) -Granulation Quality Rumsey,Red -Slough/Fibrin -Necrosis Amt Medium (34-66%) -Necrotic Tissue Type Adherent Slough -Structure Exposed N/A -Texture (Sofiya-wound Skin Appearance) Scarring -Moisture (Sofiya-wound Skin Appearance) Dry/Scaly -Color (Sofiya-wound Skin Appearance) Hemosiderin Staining -Temperature (Sofiya-wound Skin No Abnormality Appearance) (Pt Warm) -Tenderness on Palpation (Sofiya-wound No Skin Appearance) -Ulcer Cleansing Soap and Water -Foul Odor after Cleansing No -Anesthetic Used 5% Lidocaine Gel Lower Limb Edema Present Left Calf (cm) Left Ankle (cm) WC - Nurse 2 - General Ulcer CM Notes Start: 04/30/22 08:13 Freq: Status: Active Protocol: Activity Type Activity Date Activity User E-sign Co-sign Detail Recorded Client Recorded Date Recorded By Document 04/30/22 09:57 PL [id number] 04/30/22 10:00 PL Document 05/07/22 08:59 PL [id number] 05/07/22 09:01 PL Edit Result 05/07/22 08:59 PL (1) [id number] 05/07/22 10:13 PL Document 05/14/22 09:29 PL [id number] 05/14/22 09:30 PL Document 05/21/22 12:00 PL [id number] 05/21/22 12:01 PL (1) #1 Left Lower Extremity - Bioengineered Tissue No => Yes - Type of Bioengineered Tissue => Therion - Expiration Date => 12/04/22 - Product Lot Number => [id number] - Percent Used => 100 04/30/22 05/07/22 05/14/22 09:57 08:59 09:29 Wound Center Nurse 2 #2 Left Knee -Procedure Performed No -Undermining/Tunneling No -Wound/Ulcer Outcome Healed- Epithelialized #1 Left Lower Extremity -Time 08:23 08:40 08:45 -Correct Patient Yes Yes Yes -Correct Side, Site, Position Yes Yes Yes -Correct Procedure Yes Yes Yes -Procedure Performed Yes Yes Yes -Type of Procedure Debridement Debridement Debridement -Clinical Debridement Subcutaneous Subcutaneous Subcutaneous -Tissue Removed Subcutaneous Subcutaneous Subcutaneous -Post Debridement (cm) - Length 4.9 4.8 4.3 -Post Debridement (cm) - Width 4.0 3.5 1.8 -Post Debridement (cm) - Depth 0.2 0.2 0.1 -Total Square (Post) (cm) 19.60 16.80 7.74 -Area of Debridement (cm) - Length 4.9 4.8 4.3 -Area of Debridement (cm) - Width 4.0 3.5 1.8 -Total Square (Area) (cm) 19.60 16.80 7.74 -Tunneling No No No -Undermining/Tunneling No No No -Circular Undermining No No No -Wound/Ulcer Outcome Not Healed Not Healed Not Healed -Ulcer Cleansing Rinsed/ Rinsed/ Rinsed/ Irrigated with Irrigated with Irrigated with Saline Saline Saline -Foul Odor after Cleansing No No No -Bioengineered Tissue No Yes Yes -Type of Bioengineered Tissue Therion Therion -Expiration Date 12/04/22 08/27/23 -Product Lot Number [id number] -Percent Used 100 100 -Bleeding Controlled with Pressure Pressure Pressure -Treatment Response Procedure Procedure Procedure Tolerated Well Tolerated Well Tolerated Well -Debridement - Subq, 1st 20sq cm Yes No No -Apply Skin Sub - 1st 25 sq cm - Legs 1 1 -Therion (per sq cm) 30 16 Pain Scale: 0-10 Numeric Is Patient Pain Free? Yes Yes Yes 05/21/22 12:00 Wound Center Nurse 2 #2 Left Knee -Procedure Performed -Undermining/Tunneling -Wound/Ulcer Outcome #1 Left Lower Extremity -Time 08:58 -Correct Patient Yes -Correct Side, Site, Position Yes -Correct Procedure Yes -Procedure Performed Yes -Type of Procedure Debridement -Clinical Debridement Subcutaneous -Tissue Removed Subcutaneous -Post Debridement (cm) - Length 3.9 -Post Debridement (cm) - Width 1.4 -Post Debridement (cm) - Depth 0.1 -Total Square (Post) (cm) 5.46 -Area of Debridement (cm) - Length 3.9 -Area of Debridement (cm) - Width 1.4 -Total Square (Area) (cm) 5.46 -Tunneling No -Undermining/Tunneling No -Circular Undermining No -Wound/Ulcer Outcome Not Healed -Ulcer Cleansing Rinsed/ Irrigated with Saline -Foul Odor after Cleansing No -Bioengineered Tissue Yes -Type of Bioengineered Tissue Therion -Expiration Date 03/03/23 -Product Lot Number [id number] -Percent Used 100 -Bleeding Controlled with Pressure -Treatment Response Procedure Tolerated Well -Debridement - Subq, 1st 20sq cm No -Apply Skin Sub - 1st 25 sq cm - Legs 1 -Therion (per sq cm) 16 Pain Scale: 0-10 Numeric Is Patient Pain Free? Yes - Nurse 3 - General Ulcer D/C NN Start: 04/30/22 08:13 Freq: Status: Active Protocol: Activity Type Activity Date Activity User E-sign Co-sign Detail Recorded Client Recorded Date Recorded By Document 04/30/22 10:00 PL [id number] 04/30/22 10:01 PL Document 05/07/22 08:53 DL [id number] 05/07/22 08:55 DL Document 05/15/22 07:17 PL [id number] 05/15/22 07:18 PL Document 05/21/22 09:21 BMF [id number] 05/21/22 09:22 BMF 04/30/22 05/07/22 05/15/22 10:00 08:53 07:17 Wound Care Nurse 3 #1 Left Lower Extremity -Ulcer Cleansing Soap and Water Rinsed/ Irrigated with Saline -Foul Odor after Cleansing No No -Negative Pressure Wound Therapy N/A -Other Dressing Moist gauze superabsorber -Primary Dressing Covered/Secured with Dry Gauze & Dry Gauze Roll Gauze -Other Covering Left -Multi-Layered Wrap Application Multi-Layer Comp - Left ($) Treatment Response Procedure Tolerated Well Pain Scale: 0-10 Numeric Is Patient Pain Free? Yes Yes Yes WC - Visit Discharge Discharge Condition Stable Stable Ambulatory Status Wheelchair Ambulatory, Walker Transportation [facility] Facility Type [employer] [facility] Care Facility Other Orders Sent Yes 05/21/22 09:21 Wound Care Nurse 3 #1 Left Lower Extremity -Ulcer Cleansing -Foul Odor after Cleansing -Negative Pressure Wound Therapy -Other Dressing THERION -Primary Dressing Covered/Secured with -Other Covering ABD Left -Multi-Layered Wrap Application Multi-Layer Comp - Left ($) Treatment Response Procedure Tolerated Well Pain Scale: 0-10 Numeric Is Patient Pain Free? Yes WC - Visit Discharge Discharge Condition Stable Ambulatory Status Ambulatory, Walker Transportation Facility Type Other [facility]IV[facility] Orders Sent Assessment/Plan Assessment/Plan (1) Non-pressure ulcer of left lower extremity: CODE(S): L97.929 - Non-pressure chronic ulcer of unspecified part of left lower leg with unspecified severity (2) Unspecified open wound, left lower leg, subsequent encounter: CODE(S): S81.802D - Unspecified open wound, left lower leg, subsequent encounter (3) Nonhealing nonsurgical wound with fat layer exposed: CODE(S): T14.8XXA - Other injury of unspecified body region, initial encounter (4) 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: CODE(S): Z96.653 - Presence of artificial knee joint, bilateral (5) Hyperlipidemia: CODE(S): E78.5 - Hyperlipidemia, unspecified (6) Pacemaker: CODE(S): Z95.0 - Presence of cardiac pacemaker (7) Osteoporosis: CODE(S): M81.0 - Age-related osteoporosis without current pathological fracture (8) Osteoarthritis: CODE(S): M19.90 - Unspecified osteoarthritis, unspecified site (9) COPD (chronic obstructive pulmonary disease): CODE(S): J44.9 - Chronic obstructive pulmonary disease, unspecified (10) Chronic anticoagulation: CODE(S): Z79.01 - terminal gauger (current) use of anticoagulants (11) Atrial fibrillation: CODE(S): I48.91 - Unspecified atrial fibrillation (12) Hypertension: CODE(S): I10 - Essential (primary) hypertension (13) Obesity: CODE(S): E66.9 - Obesity, unspecified (14) History of breast cancer: CODE(S): Z85.3 - Personal history of malignant neoplasm of breast (15) Diabetes mellitus: CODE(S): E11.9 - Type 2 diabetes mellitus without complications (16) Dementia: CODE(S): F03.90 - Unspecified dementia without behavioral disturbance PLAN: Plan This is an 86-year-old female who presented with an ulceration on the left lateral supramalleolar area. Its etiology is uncertain, and the patient denied recent trauma to the area. There was noted to be associated swelling and edema. The patient has pre-existing medical problems, which have been listed above. The patient has been instructed to elevate her lower extremities as much as possible. Elevation is to be to heart level, or higher. This is to be accomplished during sleeping hours, as well as during daytime hours. She has been advised to refrain from prolonged idle sitting. Activity has been encouraged, though enhancement of activity is unlikely to a significant degree, as the patient requires a walker for ambulation. Swab cultures were obtained for aerobic and anaerobic bacterial growth. Cultures have been positive for Proteus mirabilis, Enterobacter cloacae, and and Serratia marcescens. The patient was placed on Bactrim double strength p.o. twice daily for total of 10 days, which has now been completed. There has been improvement and resolution in the amount of necrotic and nonviable tissue present on the surface of the wound. A Therion allograft was placed today, the 3rd such allograft placement. Compression has been applied by means of a 3M 2 layer compression wrap, which will be changed twice weekly. Laboratory results have been obtained, with results as follows: Glucose 84, sodium 139, potassium 4.0, chloride 99, BUN 11, creatinine 0.58, calcium 9.2, albumin 3.8, total protein 6.4, AST 17, ALT 14, white blood count 5.8, hemoglobin 13.2, hematocrit 39.8, platelets 209,000. These laboratory results are from March 06, 2022. The patient has been encouraged to assure adequate oral nutritional intake. Patient is to return in 1 week for reassessment. Serial allograft placements are anticipated. Total time: 28 minutes
== END 2022-05-22 23:59 | disposition home or self-care (01) ==
LOC: WC 08:30
PROVIDERS: PCP Internal Medicine; Visit Provider Surgery
DX: E11.622 Type 2 diabetes mellitus with other skin ulcer (principal); L97.222 Non-pressure chronic ulcer of left calf with fat layer exposed; F03.90 Unspecified dementia, unspecified severity, without behavioral disturbance, psychotic disturbance, mood disturbance, and anxiety; J44.9 Chronic obstructive pulmonary disease, unspecified; I48.91 Unspecified atrial fibrillation; E66.9 Obesity, unspecified; I10 Essential (primary) hypertension; E78.5 Hyperlipidemia, unspecified; M19.90 Unspecified osteoarthritis, unspecified site; Z79.01 Long term (current) use of anticoagulants; M81.0 Age-related osteoporosis without current pathological fracture; Z95.0 Presence of cardiac pacemaker; S81.802D Unspecified open wound, left lower leg, subsequent encounter; Z96.653 Presence of artificial knee joint, bilateral
CPT/HCPCS: 11042; 15271; 29581; Q4176

== ENCOUNTER 2022-06-18 08:30 | Outpatient (RCR) | payer MEDICARE, SELFPAY ==
[2022-05-23 00:35] VITALS: BP 132/80; PULSE 83; RESP 18; TEMP 37
[2022-05-24 13:36] VITALS: BP 129/72; PULSE 90; TEMP 36.8
[2022-05-28 08:36] VITALS: BP 150/82; PULSE 82; RESP 16; TEMP 36
--- NOTE | 2022-05-28 08:53 | PCM.WC.HP ---
History of Present Illness Date of Service: 05/28/22 Chief Complaint: Ulceration of the left lateral calf History of Wound: This is an 86-year-old female who presented with an ulceration of the left lateral calf. It is located in the left lateral supra-malleolar area. The patient is a resident of [facility] in [place], [place]. She is very pleasant, conversant, and cooperative. However, she suffers from dementia and is somewhat confused. She is a poor historian with respect to her prior health. Fortunately, some records accompanied her, revealing elements of her past medical history. According the patient, the ulceration on her left lower extremity had been present for approximately 3 weeks. She denied any traumatic events. She stated that the ulceration was painful. She claims to sleep on a flat mattress at night. However, she is not very active, and spends a great deal of each day sitting. The accompanying medical records suggest that she has recently undergone a venous duplex examination, results of which revealed no evidence of acute deep vein thrombosis, though valvular competence was not assessed. 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 Unspecified open wound, left lower leg, subsequent encounter Wound infection Home Medications Calcium 600 + D(3) See Rx Instructions .Route .COMPLEX 02/26/22 [History Last Taken Unknown] acetaminophen 650 mg tablet 650 mg PO Q4H PRN Pain 02/26/22 [History Last Taken Unknown] albuterol 90 mcg/actuation aerosol inhaler mcg inhalation 02/26/22 [History Last Taken Unknown] anastrozole 1 mg tablet 1 mg PO DAILY 02/26/22 [History Last Taken Unknown] donepezil 10 mg tablet 10 mg PO QHS 02/26/22 [History Last Taken Unknown] donepezil 10 mg tablet 10 mg PO QHS 02/26/22 [History Last Taken Unknown] famotidine 20 mg tablet 20 mg PO BID 02/26/22 [History Last Taken Unknown] ferrous sulfate 325 mg (65 mg iron) tablet (FeroSul) 325 mg PO DAILY 02/26/22 [History Last Taken Unknown] fluticasone 100 mcg-salmeterol 50 mcg/dose blistr powdr for inhalation (Advair Diskus) 1 inh inhalation BID 02/26/22 [History Last Taken Unknown] lovastatin 20 mg tablet 20 mg PO QPM 02/26/22 [History Last Taken Unknown] metoprolol succinate 25 mg capsule sprinkle, ext. release 24 hr 25 mg PO DAILY 02/26/22 [History Last Taken Unknown] pramipexole 1 mg tablet 1 mg PO BID 02/26/22 [History Last Taken Unknown] tramadol 50 mg tablet 50 mg PO Q8H PRN Pain 02/26/22 [History Last Taken Unknown] warfarin 2.5 mg tablet 2.5 mg PO DAILY 02/26/22 [History Last Taken Unknown] Vital Signs Vital Signs Vital Signs: 05/28/22 08:36 Temperature 96.8 F L Temperature Source Temporal Pulse Rate 82 Respiratory Rate 16 Blood Pressure 150/82 H Blood Pressure Mean 104 Blood Pressure Source Monitor Blood Pressure Position Sitting Blood Pressure Location Left Arm Physical Exam Const alert, oriented x3, no apparent distress and well nourished Constitutional Narrative: The patient is lucid today. General Appearance: cooperative, comfortable, well kempt and well developed Orientation / Consciousness: awake, oriented to person and oriented to place HEENT normocephalic, head/scalp atraumatic and hearing grossly normal bilaterally Head and Scalp: normal to inspection, normocephalic and atraumatic External Ear: external ears normal Eyes PERRL and EOMs intact bilaterally General Eye: normal appearance of both eyes Resp normal respiratory effort, normal air movement, no retractions and no use of accessory muscles Effort and Inspection: able to speak in complete sentences Extremity no calf tenderness General Extremity: Negative for clubbing or cyanosis Skin Wound Narrative: The wound on the left lateral supramalleolar area persists. Periwound erythema has resolved. The wound is smaller in size as compared to prior visits. Dimensions are documented elsewhere. The wound is generally pink and healthy in appearance, with islands of active granulation tissue. There is a small amount of bioburden. Swelling and edema in the left lower extremity appear to be well controlled, and minimal. Lipodermatosclerosis and hyperpigmentation are noted in the left gaiter area. Neuro oriented x3, CN's II-XII intact bilaterally, moves all extremities and no focal motor deficits Sensorium / Orientation: awake, alert, oriented to person, oriented to place and oriented to time Psych Appearance: grossly normal and appropriate Attitude: calm Activity / Motor Behavior: appropriate eye contact Speech: normal speech Mood & Affect: euthymic mood Thought Process: normal thought process Thought Content: normal thought content Attention / Concentration: attention grossly intact Debridement Note Debridement Note Wound debrided: Left lateral supramalleolar calf Laterality: Left Type of Debridement: Excisional debridement Anesthesia Used: 5% Lidocaine Gel Depth: Down to and including healthy tissue and in the subcutaneous layer Percentage of wound debrided: 100 Instrument Used: 5mm curette Severity: Fat Layer Exposed Amount of bleeding with debridement: Mild Bleeding Controlled with: Compression and gauze Patient tolerated procedure: Patient tolerated procedure well Debridement Free Text: Following a routine excisional debridement, which was well-tolerated by the patient, a 4 cm x 4 cm Therion allograft was applied. The entirety of the graft was placed. The allograft was placed in the appropriate orientation. Adaptic Touch was then applied, and anchored in place using Steri-Strips. Dry sterile gauze dressing was then placed, and the left lower extremity was then wrapped with a 3M 2 layer compression wrap, which will be changed twice weekly. This represents the 4th such allograft application. Post-Debridement Measurements and Additional Note: Post-Debridement Measurements/Treatment - Nurse 1 - General Ulcer Assessment Start: 05/24/22 13:36 Freq: Status: Active Protocol: WC.LOWEXT Activity Type Activity Date Activity User E-sign Co-sign Detail Recorded Client Recorded Date Recorded By Document 05/24/22 13:36 KR [id number] 05/24/22 13:40 KR Document 05/28/22 08:36 ML [id number] 05/28/22 08:38 ML 05/24/22 05/28/22 13:36 08:36 - Today's Visit Information Type of service Nurse-only Follow-up Visit Visit (Physician/[employer] ) Arrival Mode Ambulatory, Walker Walker Transfer Assistance None Patient Identification Verified (Name & Yes Yes ) Patient Requires Transmission-Based No Precautions Safety Precautions NA Vital Signs Temperature (97.8 F-99.1 F) 98.2 F 96.8 F L Temperature Source Temporal Temporal Pulse Rate (60-100) 90 82 Pulse Location Monitor Monitor Respiratory Rate (12-18) 16 Blood Pressure (90/60-120/80) 129/72 H 150/82 H Blood Pressure Mean 91 104 Source Monitor Monitor Position Semi-Fowlers Sitting Blood Pressure Location Left Arm Left Arm History Since Last Visit- (Skip if this is Patient's initial visit) Have you changed medications since your No No last visit? Any new allergies or adverse reactions No No Had a fall/change in ADL's that may No No increase risk of falls Signs or symptoms of abuse and/or No No neglect since last visit Have you been in the hospital since your No No last visit? Has dressing in place as prescribed Yes No Has compression in place as prescribed Yes N/A Has offloadiing in place as prescribed N/A N/A Experienced any changes in pain level or No No management Left Footwear Regular Shoe Regular Shoe Right Footwear Regular Shoe Regular Shoe Pain Scale: 0-10 Numeric Is Patient Pain Free? Yes Yes WC - Nurse 1 - General Ulcer Measurement Start: 05/24/22 13:36 Freq: Status: Active Protocol: Activity Type Activity Date Activity User E-sign Co-sign Detail Recorded Client Recorded Date Recorded By Document 05/24/22 13:36 KR [id number] 05/24/22 13:40 KR Document 05/28/22 08:36 ML [id number] 05/28/22 08:38 ML 05/24/22 05/28/22 13:36 08:36 Wound Center Nurse 1 #1 Left Lower Extremity -Current Size (cm) - Length 0.2 -Current Size (cm) - Width 0.2 -Current Size (cm) - Depth 0.1 -Total Square Cm 0.04 -Exudate Amt None Present -Wound Margin Distinct, Outline Attached -Granulation Amt None Present (0 %) -Slough/Fibrin No -Necrosis Amt None Present (0 %) -Texture (Sofiya-wound Skin Appearance) Assessed -Moisture (Sofiya-wound Skin Appearance) Assessed -Color (Sofiya-wound Skin Appearance) Assessed -Temperature (Sofiya-wound Skin No Abnormality Appearance) (Pt Warm) -Tenderness on Palpation (Sofiya-wound No Skin Appearance) -Ulcer Cleansing Rinsed/ Irrigated with Saline -Foul Odor after Cleansing No -Anesthetic Used 5% Lidocaine Gel Left Calf (cm) 36 Left Ankle (cm) 20.8 WC - Nurse 3 - General Ulcer D/C NN Start: 05/24/22 13:36 Freq: Status: Active Protocol: Activity Type Activity Date Activity User E-sign Co-sign Detail Recorded Client Recorded Date Recorded By Document 05/24/22 13:36 KR [id number] 05/24/22 13:40 KR 05/24/22 13:36 Vital Signs Temperature (97.8 F-99.1 F) 98.2 F Temperature Source Temporal Pulse Rate (60-100) 90 Pulse Location Monitor Blood Pressure (90/60-120/80) 129/72 H Blood Pressure Mean 91 Source Monitor Position Semi-Fowlers Blood Pressure Location Left Arm Pain Scale: 0-10 Numeric Is Patient Pain Free? Yes Wound Care Nurse 3 #1 Left Lower Extremity -Ulcer Cleansing Rinsed/ Irrigated with Saline -Other Dressing abd pad Left -Multi-Layered Wrap Application Multi-Layer Comp - Left ($) Assessment/Plan Assessment/Plan (1) Non-pressure ulcer of left lower extremity: CODE(S): L97.929 - Non-pressure chronic ulcer of unspecified part of left lower leg with unspecified severity (2) Unspecified open wound, left lower leg, subsequent encounter: CODE(S): S81.802D - Unspecified open wound, left lower leg, subsequent encounter (3) Nonhealing nonsurgical wound with fat layer exposed: CODE(S): T14.8XXA - Other injury of unspecified body region, initial encounter (4) 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: CODE(S): Z96.653 - Presence of artificial knee joint, bilateral (5) Hyperlipidemia: CODE(S): E78.5 - Hyperlipidemia, unspecified (6) Pacemaker: CODE(S): Z95.0 - Presence of cardiac pacemaker (7) Osteoporosis: CODE(S): M81.0 - Age-related osteoporosis without current pathological fracture (8) Osteoarthritis: CODE(S): M19.90 - Unspecified osteoarthritis, unspecified site (9) COPD (chronic obstructive pulmonary disease): CODE(S): J44.9 - Chronic obstructive pulmonary disease, unspecified (10) Chronic anticoagulation: CODE(S): Z79.01 - [facility] (current) use of anticoagulants (11) Atrial fibrillation: CODE(S): I48.91 - Unspecified atrial fibrillation (12) Hypertension: CODE(S): I10 - Essential (primary) hypertension (13) Obesity: CODE(S): E66.9 - Obesity, unspecified (14) History of breast cancer: CODE(S): Z85.3 - Personal history of malignant neoplasm of breast (15) Diabetes mellitus: CODE(S): E11.9 - Type 2 diabetes mellitus without complications (16) Dementia: CODE(S): F03.90 - Unspecified dementia without behavioral disturbance PLAN: Plan This is an 86-year-old female who presented with an ulceration on the left lateral supramalleolar area. Its etiology is uncertain, and the patient denied recent trauma to the area. There was noted to be associated swelling and edema. The patient has pre-existing medical problems, which have been listed above. The patient has been instructed to elevate her lower extremities as much as possible. Elevation is to be to heart level, or higher. This is to be accomplished during sleeping hours, as well as during daytime hours. She has been advised to refrain from prolonged idle sitting. Activity has been encouraged, though enhancement of activity is unlikely to a significant degree, as the patient requires a walker for ambulation. Swab cultures were obtained for aerobic and anaerobic bacterial growth. Cultures have been positive for Proteus mirabilis, Enterobacter cloacae, and and Serratia marcescens. The patient was placed on Bactrim double strength p.o. twice daily for total of 10 days, which has now been completed. There has been improvement and resolution of necrotic and nonviable tissue present on the surface of the wound. A Therion allograft was placed today, the 4th such allograft placement. Compression has been applied by means of a 3M 2 layer compression wrap, which will be changed twice weekly. Laboratory results have been obtained, with results as follows: Glucose 84, sodium 139, potassium 4.0, chloride 99, BUN 11, creatinine 0.58, calcium 9.2, albumin 3.8, total protein 6.4, AST 17, ALT 14, white blood count 5.8, hemoglobin 13.2, hematocrit 39.8, platelets 209,000. These laboratory results are from March 06, 2022. The patient has been encouraged to assure adequate oral nutritional intake. Patient is to return in 1 week for reassessment. Serial allograft placements are anticipated. Total time: 29 minutes
[2022-05-31 12:35] VITALS: BP 150/84; PULSE 70; RESP 18; TEMP 35.9
[2022-06-04 08:39] VITALS: BP 113/83; PULSE 88; TEMP 36.1
--- NOTE | 2022-06-04 10:16 | HP.PCM_ITS ---
History of Present Illness Date of Service: 06/04/22 Chief Complaint: Ulceration of the left lateral calf History of Wound: This is an 86-year-old female who presented with an ulceration of the left lateral calf. It is located in the left lateral supra-malleolar area. The patient is a resident of [facility] in [place], [place]. She is very pleasant, conversant, and cooperative. However, she suffers from dementia and is somewhat confused. She is a poor historian with r espect to her prior health. Fortunately, some records accompanied her, revealing elements of her past medical history. According the patient, the ulceration on her left lower extremity had been present for approximately 3 weeks. She denied any traumatic events. She stated that the ulceration was painful. She claims to sleep on a flat mattress at night. However, she is not very active, and spends a great deal of each day sitting. The accompanying medical records suggest that she has recently undergone a venous duplex examination, results of which revealed no evidence of acute deep vein t hrombosis, though valvular competence was not assessed. 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 Unspecified open wound, left lower leg, subsequent encounter Wound infection Home Medications Calcium 600 + D(3) See Rx Instructions .Route .COMPLEX 02/26/22 [History Last Taken Unknown] acetaminophen 650 mg tablet 650 mg PO Q4H PRN Pain 02/26/22 [History Last Taken Unknown] albuterol 90 mcg/actuation aerosol inhaler mcg inhalation 02/26/22 [History Last Taken Unknown] anastrozole 1 mg tablet 1 mg PO DAILY 02/26/22 [History Last Taken Unknown] donepezil 10 mg tablet 10 mg PO QHS 02/26/22 [History Last Taken Unknown] donepezil 10 mg tablet 10 mg PO QHS 02/26/22 [History Last Taken Unknown] famotidine 20 mg tablet 20 mg PO BID 02/26/22 [History Last Taken Unknown] ferrous sulfate 325 mg (65 mg iron) tablet (FeroSul) 325 mg PO DAILY 02/26/22 [History Last Taken Unknown] fluticasone 100 mcg-salmeterol 50 mcg/dose blistr powdr for inhalation (Advair Diskus) 1 inh inhalation BID 02/26/22 [History Last Taken Unknown] lovastatin 20 mg tablet 20 mg PO QPM 02/26/22 [History Last Taken Unknown] metoprolol succinate 25 mg capsule sprinkle, ext. release 24 hr 25 mg PO DAILY 02/26/22 [History Last Taken Unknown] pramipexole 1 mg tablet 1 mg PO BID 02/26/22 [History Last Taken Unknown] tramadol 50 mg tablet 50 mg PO Q8H PRN Pain 02/26/22 [History Last Taken Unknown] warfarin 2.5 mg tablet 2.5 mg PO DAILY 02/26/22 [History Last Taken Unknown] Vital Signs Vital Signs Vital Signs: 06/04/22 08:39 Temperature 97.0 F L Temperature Source Temporal Pulse Rate 88 Blood Pressure 113/83 H Blood Pressure Mean 93 Blood Pressure Source Monitor Blood Pressure Position Semi-Fowlers Blood Pressure Location Left Arm Physical Exam Const alert, oriented x3, no apparent distress and well nourished Constitutional Narrative: The patient is lucid today. General Appearance: cooperative, comfortable, well kempt and well developed Orientation / Consciousness: awake, oriented to person and oriented to place HEENT normocephalic, head/scalp atraumatic and hearing grossly normal bilaterally Head and Scalp: normal to inspection, normocephalic and atraumatic External Ear: external ears normal Eyes PERRL and EOMs intact bilaterally General Eye: normal appearance of both eyes Resp normal respiratory effort, normal air movement, no retractions and no use of accessory muscles Effort and Inspection: able to speak in complete sentences Extremity no calf tenderness General Extremity: Negative for clubbing or cyanosis Skin Wound Narrative: The wound on the left lateral supramalleolar area persists. Periwound erythema has resolved. The wound is smaller in size as compared to prior visits. Dimensions are documented elsewhere. The wound is generally pink and healthy in appearance, with islands of active granulation tissue. There is a small amount of bioburden. Swelling and edema in the left lower extremity appear to be well controlled, and minimal. Lipodermatosclerosis and hyperpigmentation are noted in the left gaiter area. Neuro oriented x3, CN's II-XII intact bilaterally, moves all extremities and no focal motor deficits Sensorium / Orientation: awake, alert, oriented to person, oriented to place and oriented to time Psych Appearance: grossly normal and appropriate Attitude: calm Activity / Motor Behavior: appropriate eye contact Speech: normal speech Mood & Affect: euthymic mood Thought Process: normal thought process Thought Content: normal thought content Attention / Concentration: attention grossly intact Debridement Note Debridement Note Wound debrided: Left lateral calf Laterality: Left Type of Debridement: Excisional debridement Anesthesia Used: 5% Lidocaine Gel Depth: Down to and including healthy tissue and in the subcutaneous layer Percentage of wound debrided: 100 Instrument Used: 5mm curette Tissue Removed: Bioburden Severity: Fat Layer Exposed Amount of bleeding with debridement: Mild Bleeding Controlled with: Compression and gauze Patient tolerated procedure: Patient tolerated procedure well Debridement Free Text: Following a routine excisional debridement, which was well-tolerated, a Therion allograft was selected for application. Today's application represents the 5th such allograft application. The allograft was cut to appropriate size and shape. Approximately 50% of the allograft was utilized. The allograft was applied to the wound topically, and Adaptic Touch was then placed over the site. Steri-Strips were then used to secure the graft and Adaptic. The site was then covered with dry gauze, and the left lower extremity was wrapped with a 3M 2 layer compression wrap, which is to be changed twice weekly. Post-Debridement Measurements and Additional Note: Post-Debridement Measurements/Treatment WC - Nurse 1 - General Ulcer Assessment Start: 05/24/22 13:36 Freq: Status: Active Protocol: LAKSHMI Activity Type Activity Date Activity User E-sign Co-sign Detail Recorded Client Recorded Date Recorded By Document 05/24/22 13:36 KR [id number] 05/24/22 13:40 KR Document 05/28/22 08:36 ML [id number] 05/28/22 08:38 ML Document 05/31/22 12:35 RB [id number] 05/31/22 12:37 RB Document 06/04/22 08:39 KR [id number] 06/04/22 08:46 KR 05/24/22 05/28/22 05/31/22 13:36 08:36 12:35 [facility] Today's Visit Information Type of service Nurse-only Follow-up Visit Nurse-only Visit (Physician/MERCHANDISE SUPPORT ASSOCIATE Visit ) Arrival Mode Ambulatory, Walker Ambulatory, Walker Walker Transfer Assistance None None Patient Identification Verified (Name & Yes Yes Yes ) Patient Requires Transmission-Based No No Precautions Safety Precautions NA Vital Signs Temperature (97.8 F-99.1 F) 98.2 F 96.8 F L 96.6 F L Temperature Source Temporal Temporal Temporal Pulse Rate (60-100) 90 82 70 Pulse Location Monitor Monitor Monitor Respiratory Rate (12-18) 16 18 Respiratory rate source Observation Blood Pressure (90/60-120/80) 129/72 H 150/82 H 150/84 H Blood Pressure Mean 91 104 106 Source Monitor Monitor Monitor Position Semi-Fowlers Sitting Sitting Blood Pressure Location Left Arm Left Arm Left Arm History Since Last Visit- (Skip if this is Patient's initial visit) Have you changed medications since your No No No last visit? Any new allergies or adverse reactions No No No Had a fall/change in ADL's that may No No No increase risk of falls Signs or symptoms of abuse and/or No No No neglect since last visit Have you been in the hospital since your No No No last visit? Has dressing in place as prescribed Yes No Yes Has compression in place as prescribed Yes N/A Yes Has offloadiing in place as prescribed N/A N/A No Experienced any changes in pain level or No No No management Left Footwear Regular Shoe Regular Shoe Right Footwear Regular Shoe Regular Shoe Pain Scale: 0-10 Numeric Is Patient Pain Free? Yes Yes Yes 06/04/22 08:39 [facility]'s Visit Information Type of service Follow-up Visit (Physician/MERCHANDISE SUPPORT ASSOCIATE ) Arrival Mode Ambulatory, Walker Transfer Assistance Patient Identification Verified (Name & Yes ) Patient Requires Transmission-Based Precautions Safety Precautions Vital Signs Temperature (97.8 F-99.1 F) 97.0 F L Temperature Source Temporal Pulse Rate (60-100) 88 Pulse Location Monitor Respiratory Rate (12-18) Respiratory rate source Blood Pressure (90/60-120/80) 113/83 H Blood Pressure Mean 93 Source Monitor Position Semi-Fowlers Blood Pressure Location Left Arm History Since Last Visit- (Skip if this is Patient's initial visit) Have you changed medications since your No last visit? Any new allergies or adverse reactions No Had a fall/change in ADL's that may No increase risk of falls Signs or symptoms of abuse and/or No neglect since last visit Have you been in the hospital since your last visit? Has dressing in place as prescribed Yes Has compression in place as prescribed Yes Has offloadiing in place as prescribed N/A Experienced any changes in pain level or No management Left Footwear Regular Shoe Right Footwear Regular Shoe Pain Scale: 0-10 Numeric Is Patient Pain Free? Yes WC - Nurse 1 - General Ulcer Measurement Start: 05/24/22 13:36 Freq: Status: Active Protocol: Activity Type Activity Date Activity User E-sign Co-sign Detail Recorded Client Recorded Date Recorded By Document 05/24/22 13:36 KR [id number] 05/24/22 13:40 KR Document 05/28/22 08:36 ML [id number] 05/28/22 08:38 ML Document 05/31/22 12:35 RB [id number] 05/31/22 12:37 RB Document 06/04/22 08:39 KR [id number] 06/04/22 08:46 KR 05/24/22 05/28/22 05/31/22 13:36 08:36 12:35 Wound Center Nurse 1 #1 Left Lower Extremity -Combined with other wound -Current Size (cm) - Length 0.2 -Current Size (cm) - Width 0.2 -Current Size (cm) - Depth 0.1 -Total Square Cm 0.04 -Photo Taken -Tunneling -Undermining/Tunneling -Circular Undermining -Change in Wound Grade/Stage -Exudate Amt None Present -Wound Margin Distinct, Outline Attached -Granulation Amt None Present (0 %) -Granulation Quality -Slough/Fibrin No -Necrosis Amt None Present (0 %) -Structure Exposed -Texture (Sofiya-wound Skin Appearance) Assessed -Moisture (Sofiya-wound Skin Appearance) Assessed -Color (Sofiya-wound Skin Appearance) Assessed -Temperature (Sofiya-wound Skin No Abnormality Appearance) (Pt Warm) -Tenderness on Palpation (Sofiya-wound No Skin Appearance) -Ulcer Cleansing Rinsed/ Irrigated with Saline -Foul Odor after Cleansing No -Anesthetic Used 5% Lidocaine Gel -Wound Comment(s) therion and steristrips left in place 3M applied per Roland Randhawa Left Calf (cm) 36 Left Ankle (cm) 20.8 06/04/22 08:39 Wound Center Nurse 1 #1 Left Lower Extremity -Combined with other wound No -Current Size (cm) - Length 2 -Current Size (cm) - Width 1 -Current Size (cm) - Depth 0.1 -Total Square Cm 2 -Photo Taken No -Tunneling No -Undermining/Tunneling No -Circular Undermining No -Change in Wound Grade/Stage No -Exudate Amt -Wound Margin Distinct, Outline Attached -Granulation Amt Small (1-33%) -Granulation Quality [employer] -Slough/Fibrin No -Necrosis Amt None Present (0 %) -Structure Exposed N/A -Texture (Sofiya-wound Skin Appearance) Assessed, Scarring -Moisture (Sofiya-wound Skin Appearance) No Abnormality, Assessed -Color (Sofiya-wound Skin Appearance) No Abnormality, Assessed -Temperature (Sofiya-wound Skin No Abnormality Appearance) (Pt Warm) -Tenderness on Palpation (Sofiya-wound No Skin Appearance) -Ulcer Cleansing Soap and Water -Foul Odor after Cleansing No -Anesthetic Used 5% Lidocaine Gel -Wound Comment(s) Left Calf (cm) Left Ankle (cm) WC - Nurse 2 - General Ulcer CM Notes Start: 05/24/22 13:36 Freq: Status: Active Protocol: Activity Type Activity Date Activity User E-sign Co-sign Detail Recorded Client Recorded Date Recorded By Document 05/28/22 09:41 [id number] 05/28/22 09:43 PL Document 06/04/22 10:05 [id number] 06/04/22 10:07 PL 05/28/22 06/04/22 09:41 10:05 Wound Center Nurse 2 #1 Left Lower Extremity -Time 08:40 08:56 -Correct Patient Yes Yes -Correct Side, Site, Position Yes Yes -Correct Procedure Yes Yes -Procedure Performed Yes Yes -Type of Procedure Debridement Debridement -Clinical Debridement Subcutaneous Subcutaneous -Tissue Removed Subcutaneous Subcutaneous -Post Debridement (cm) - Length 0.2 1.8 -Post Debridement (cm) - Width 0.2 0.6 -Post Debridement (cm) - Depth 0.1 0.1 -Total Square (Post) (cm) 0.04 1.08 -Area of Debridement (cm) - Length 0.2 1.8 -Area of Debridement (cm) - Width 0.2 0.6 -Total Square (Area) (cm) 0.04 1.08 -Tunneling No No -Undermining/Tunneling No No -Circular Undermining No No -Wound/Ulcer Outcome Not Healed Not Healed -Ulcer Cleansing Rinsed/ Rinsed/ Irrigated with Irrigated with Saline Saline -Foul Odor after Cleansing No No -Bioengineered Tissue Yes Yes -Type of Bioengineered Tissue Therion Therion -Expiration Date 08/27/23 08/27/23 -Product Lot Number [id number] -Percent Used 100 50 -Bleeding Controlled with Pressure Pressure -Treatment Response Procedure Procedure Not Tolerated Well Tolerated Well -Debridement - Subq, 1st 20sq cm No No -Apply Skin Sub - 1st 25 sq cm - Legs 1 1 -Therion (per sq cm) 16 4 Pain Scale: 0-10 Numeric Is Patient Pain Free? Yes Yes WC - Nurse 3 - General Ulcer D/C NN Start: 05/24/22 13:36 Freq: Status: Active Protocol: Activity Type Activity Date Activity User E-sign Co-sign Detail Recorded Client Recorded Date Recorded By Document 05/24/22 13:36 KR [id number] 05/24/22 13:40 KR Document 05/28/22 09:41 PL [id number] 05/28/22 09:43 PL Document 05/31/22 12:35 RB [id number] 05/31/22 12:37 RB 05/24/22 05/28/22 05/31/22 13:36 09:41 12:35 Vital Signs Temperature (97.8 F-99.1 F) 98.2 F 96.6 F L Temperature Source Temporal Temporal Pulse Rate (60-100) 90 70 Pulse Location Monitor Monitor Respiratory Rate (12-18) 18 Respiratory rate source Observation Blood Pressure (90/60-120/80) 129/72 H 150/84 H Blood Pressure Mean 91 106 Source Monitor Monitor Position Semi-Fowlers Sitting Blood Pressure Location Left Arm Left Arm Pain Scale: 0-10 Numeric Is Patient Pain Free? Yes Yes Yes Wound Care Nurse 3 #1 Left Lower Extremity -Ulcer Cleansing Rinsed/ Irrigated with Saline -Primary Dressing Applied Optilok 6.5x10 -Other Dressing abd pad -Optilok 6.5x10 1 Left -Multi-Layered Wrap Application Multi-Layer Multi-Layer Multi-Layer Comp - Left ($) Comp - Left ($) Comp - Left ($) Treatment Response Procedure Tolerated Well WC - Visit Discharge Discharge Condition Stable Stable Ambulatory Status Ambulatory, Ambulatory, Walker Walker Transportation Private Auto Private Auto Medication Reconcilliation completed & No provided to patient/care provider Clinical Summary of Care Provided Yes Assessment/Plan Assessment/Plan (1) Non-pressure ulcer of left lower extremity: CODE(S): L97.929 - Non-pressure chronic ulcer of unspecified part of left lower leg with unspecified severity (2) Unspecified open wound, left lower leg, subsequent encounter: CODE(S): S81.802D - Unspecified open wound, left lower leg, subsequent encounter (3) Nonhealing nonsurgical wound with fat layer exposed: CODE(S): T14.8XXA - Other injury of unspecified body region, initial encounter (4) 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: CODE(S): Z96.653 - Presence of artificial knee joint, bilateral (5) Hyperlipidemia: CODE(S): E78.5 - Hyperlipidemia, unspecified (6) Pacemaker: CODE(S): Z95.0 - Presence of cardiac pacemaker (7) Osteoporosis: CODE(S): M81.0 - Age-related osteoporosis without current pathological fracture (8) Osteoarthritis: CODE(S): M19.90 - Unspecified osteoarthritis, unspecified site (9) COPD (chronic obstructive pulmonary disease): CODE(S): J44.9 - Chronic obstructive pulmonary disease, unspecified (10) Chronic anticoagulation: CODE(S): Z79.01 - nursing home (current) use of anticoagulants (11) Atrial fibrillation: CODE(S): I48.91 - Unspecified atrial fibrillation (12) Hypertension: CODE(S): I10 - Essential (primary) hypertension (13) Obesity: CODE(S): E66.9 - Obesity, unspecified (14) History of breast cancer: CODE(S): Z85.3 - Personal history of malignant neoplasm of breast (15) Diabetes mellitus: CODE(S): E11.9 - Type 2 diabetes mellitus without complications (16) Dementia: CODE(S): F03.90 - Unspecified dementia without behavioral disturbance PLAN: Plan This is an 86-year-old female who presented with an ulceration on the left lateral supramalleolar area. Its etiology is uncertain, and the patient denied recent trauma to the area. There was noted to be associated swelling and edema. The patient has pre-existing medical problems, which have been listed above. The patient has been instructed to elevate her lower extremities as much as possible. Elevation is to be to heart level, or higher. This is to be accomplished during sleeping hours, as well as during daytime hours. She has been advised to refrain from prolonged idle sitting. Activity has been encouraged, though enhancement of activity is unlikely to a significant degree, as the patient requires a walker for ambulation. Swab cultures were obtained for aerobic and anaerobic bacterial growth. Cultures have been positive for Proteus mirabilis, Enterobacter cloacae, and and Serratia marcescens. The patient was placed on Bactrim double strength p.o. twice daily for total of 10 days, which has now been completed. There has been improvement and resolution of necrotic and nonviable tissue present on the surface of the wound. A Therion allograft was placed today, the 5th such allograft placement. Compression has been applied by means of a 3M 2 layer compression wrap, which will be changed twice weekly. Laboratory results have been obtained, with results as follows: Glucose 84, sodium 139, potassium 4.0, chloride 99, BUN 11, creatinine 0.58, calcium 9.2, albumin 3.8, total protein 6.4, AST 17, ALT 14, white blood count 5.8, hemoglobin 13.2, hematocrit 39.8, platelets 209,000. These laboratory results are from March 06, 2022. The patient has been encouraged to assure adequate oral nutritional intake. Patient is to return in 1 week for reassessment. Serial allograft placements are anticipated. Total time: 28 minutes
[2022-06-07 13:10] VITALS: BP 125/70; PULSE 78; RESP 18; TEMP 36.3
[2022-06-11 08:37] VITALS: BP 113/62; PULSE 89; TEMP 36.2
--- NOTE | 2022-06-11 08:38 | NURSING ---
theraskin on for one more week
--- NOTE | 2022-06-11 12:08 | HP.PCM_ITS ---
History of Present Illness Date of Service: 06/11/22 Chief Complaint: Ulceration of the left lateral calf History of Wound: This is an 86-year-old female who presented with an ulceration of the left lateral calf. It is located in the left lateral supra-malleolar area. The patient is a resident of [facility] in [place], [place]. She is very pleasant, conversant, and cooperative. However, she suffers from dementia and is somewhat confused. She is a poor historian with r espect to her prior health. Fortunately, some records accompanied her, revealing elements of her past medical history. According the patient, the ulceration on her left lower extremity had been present for approximately 3 weeks. She denied any traumatic events. She stated that the ulceration was painful. She claims to sleep on a flat mattress at night. However, she is not very active, and spends a great deal of each day sitting. The accompanying medical records suggest that she has recently undergone a venous duplex examination, results of which revealed no evidence of acute deep vein t hrombosis, though valvular competence was not assessed. 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 Unspecified open wound, left lower leg, subsequent encounter Wound infection Home Medications Calcium 600 + D(3) See Rx Instructions .Route .COMPLEX 02/26/22 [History Last Taken Unknown] acetaminophen 650 mg tablet 650 mg PO Q4H PRN Pain 02/26/22 [History Last Taken Unknown] albuterol 90 mcg/actuation aerosol inhaler mcg inhalation 02/26/22 [History Last Taken Unknown] anastrozole 1 mg tablet 1 mg PO DAILY 02/26/22 [History Last Taken Unknown] donepezil 10 mg tablet 10 mg PO QHS 02/26/22 [History Last Taken Unknown] donepezil 10 mg tablet 10 mg PO QHS 02/26/22 [History Last Taken Unknown] famotidine 20 mg tablet 20 mg PO BID 02/26/22 [History Last Taken Unknown] ferrous sulfate 325 mg (65 mg iron) tablet (FeroSul) 325 mg PO DAILY 02/26/22 [History Last Taken Unknown] fluticasone 100 mcg-salmeterol 50 mcg/dose blistr powdr for inhalation (Advair Diskus) 1 inh inhalation BID 02/26/22 [History Last Taken Unknown] lovastatin 20 mg tablet 20 mg PO QPM 02/26/22 [History Last Taken Unknown] metoprolol succinate 25 mg capsule sprinkle, ext. release 24 hr 25 mg PO DAILY 02/26/22 [History Last Taken Unknown] pramipexole 1 mg tablet 1 mg PO BID 02/26/22 [History Last Taken Unknown] tramadol 50 mg tablet 50 mg PO Q8H PRN Pain 02/26/22 [History Last Taken Unknown] warfarin 2.5 mg tablet 2.5 mg PO DAILY 02/26/22 [History Last Taken Unknown] Vital Signs Vital Signs Vital Signs: 06/11/22 08:37 Temperature 97.2 F L Temperature Source Temporal Pulse Rate 89 Blood Pressure 113/62 Blood Pressure Mean 79 Blood Pressure Source Monitor Blood Pressure Position Semi-Fowlers Blood Pressure Location Right Arm Physical Exam Const alert, oriented x3, no apparent distress and well nourished Constitutional Narrative: The patient is lucid today. General Appearance: cooperative, comfortable, well kempt and well developed Orientation / Consciousness: awake, oriented to person and oriented to place HEENT normocephalic, head/scalp atraumatic and hearing grossly normal bilaterally Head and Scalp: normal to inspection, normocephalic and atraumatic External Ear: external ears normal Eyes PERRL and EOMs intact bilaterally General Eye: normal appearance of both eyes Resp normal respiratory effort, normal air movement, no retractions and no use of accessory muscles Effort and Inspection: able to speak in complete sentences Extremity no calf tenderness General Extremity: Negative for clubbing or cyanosis Skin Wound Narrative: The wound on the left lateral supramalleolar area persists. Periwound erythema has resolved. The allograft, which was applied 1 week ago, remains in place, as well as this overlying dressing. There is no drainage or odor. Swelling and edema in the left lower extremity appear to be well controlled, and minimal. Lipodermatosclerosis and hyperpigmentation are noted in the left gaiter area. Neuro oriented x3, CN's II-XII intact bilaterally, moves all extremities and no focal motor deficits Sensorium / Orientation: awake, alert, oriented to person, oriented to place and oriented to time Psych Appearance: grossly normal and appropriate Attitude: calm Activity / Motor Behavior: appropriate eye contact Speech: normal speech Mood & Affect: euthymic mood Thought Process: normal thought process Thought Content: normal thought content Attention / Concentration: attention grossly intact Debridement Note Debridement Note No debridement was completed: No debridement was completed today Post-Debridement Measurements and Additional Note: Post-Debridement Measurements/Treatment - Nurse 1 - General Ulcer Assessment Start: 05/24/22 13:36 Freq: Status: Active Protocol: MICHELINE.GlowpointSÁNCHEZT Activity Type Activity Date Activity User E-sign Co-sign Detail Recorded Client Recorded Date Recorded By Document 05/24/22 13:36 KR [id number] 05/24/22 13:40 KR Document 05/28/22 08:36 ML [id number] 05/28/22 08:38 ML Document 05/31/22 12:35 RB [id number] 05/31/22 12:37 RB Document 06/04/22 08:39 KR [id number] 06/04/22 08:46 KR Document 06/07/22 13:10 DL [id number] 06/07/22 13:25 DL Document 06/11/22 08:37 DL [id number] 06/11/22 08:39 DL 05/24/22 05/28/22 05/31/22 13:36 08:36 12:35 - Today's Visit Information Type of service Nurse-only Follow-up Visit Nurse-only Visit (Physician/IRRIGATION SERVICE TECHNICIAN Visit ) Arrival Mode Ambulatory, Walker Ambulatory, Walker Walker Transfer Assistance None None Patient Identification Verified (Name & Yes Yes Yes ) Patient Requires Transmission-Based No No Precautions Safety Precautions NA Vital Signs Temperature (97.8 F-99.1 F) 98.2 F 96.8 F L 96.6 F L Temperature Source Temporal Temporal Temporal Pulse Rate (60-100) 90 82 70 Pulse Location Monitor Monitor Monitor Respiratory Rate (12-18) 16 18 Respiratory rate source Observation Blood Pressure (90/60-120/80) 129/72 H 150/82 H 150/84 H Blood Pressure Mean 91 104 106 Source Monitor Monitor Monitor Position Semi-Fowlers Sitting Sitting Blood Pressure Location Left Arm Left Arm Left Arm History Since Last Visit- (Skip if this is Patient's initial visit) Have you changed medications since your No No No last visit? Any new allergies or adverse reactions No No No Had a fall/change in ADL's that may No No No increase risk of falls Signs or symptoms of abuse and/or No No No neglect since last visit Have you been in the hospital since your No No No last visit? Has dressing in place as prescribed Yes No Yes Has compression in place as prescribed Yes N/A Yes Has offloadiing in place as prescribed N/A N/A No Experienced any changes in pain level or No No No management Left Footwear Regular Shoe Regular Shoe Right Footwear Regular Shoe Regular Shoe Pain Scale: 0-10 Numeric Is Patient Pain Free? Yes Yes Yes 06/04/22 06/07/22 06/11/22 08:39 13:10 08:37 WC - Today's Visit Information Type of service Follow-up Visit Nurse-only Follow-up Visit (Physician/IRRIGATION SERVICE TECHNICIAN Visit (Physician/IRRIGATION SERVICE TECHNICIAN ) ) Arrival Mode Ambulatory, Ambulatory, Ambulatory, Walker Walker Walker Transfer Assistance None Patient Identification Verified (Name & Yes Yes Yes ) Patient Requires Transmission-Based No Precautions Safety Precautions Vital Signs Temperature (97.8 F-99.1 F) 97.0 F L 97.3 F L 97.2 F L Temperature Source Temporal Temporal Temporal Pulse Rate (60-100) 88 78 89 Pulse Location Monitor Monitor Monitor Respiratory Rate (12-18) 18 Respiratory rate source Observation Blood Pressure (90/60-120/80) 113/83 H 125/70 H 113/62 Blood Pressure Mean 93 88 79 Source Monitor Monitor Monitor Position Semi-Fowlers Semi-Fowlers Blood Pressure Location Left Arm Right Arm History Since Last Visit- (Skip if this is Patient's initial visit) Have you changed medications since your No No No last visit? Any new allergies or adverse reactions No No No Had a fall/change in ADL's that may No No No increase risk of falls Signs or symptoms of abuse and/or No No No neglect since last visit Have you been in the hospital since your No last visit? Has dressing in place as prescribed Yes Yes Yes Has compression in place as prescribed Yes Yes Yes Has offloadiing in place as prescribed N/A N/A N/A Experienced any changes in pain level or No No No management Left Footwear Regular Shoe Regular Shoe Right Footwear Regular Shoe Regular Shoe Pain Scale: 0-10 Numeric Is Patient Pain Free? Yes Yes Yes WC - Nurse 1 - General Ulcer Measurement Start: 05/24/22 13:36 Freq: Status: Active Protocol: Activity Type Activity Date Activity User E-sign Co-sign Detail Recorded Client Recorded Date Recorded By Document 05/24/22 13:36 KR [id number] 05/24/22 13:40 KR Document 05/28/22 08:36 ML [id number] 05/28/22 08:38 ML Document 05/31/22 12:35 RB [id number] 05/31/22 12:37 RB Document 06/04/22 08:39 KR [id number] 06/04/22 08:46 KR Document 06/07/22 13:10 DL [id number] 06/07/22 13:25 DL Document 06/11/22 08:37 DL [id number] 06/11/22 08:39 DL 05/24/22 05/28/22 05/31/22 13:36 08:36 12:35 Wound Center Nurse 1 #1 Left Lower Extremity -Combined with other wound -Current Size (cm) - Length 0.2 -Current Size (cm) - Width 0.2 -Current Size (cm) - Depth 0.1 -Total Square Cm 0.04 -Photo Taken -Tunneling -Undermining/Tunneling -Circular Undermining -Change in Wound Grade/Stage -Exudate Amt None Present -Exudate Type -Wound Margin Distinct, Outline Attached -Granulation Amt None Present (0 %) -Granulation Quality -Slough/Fibrin No -Necrosis Amt None Present (0 %) -Structure Exposed -Texture (Sofiya-wound Skin Appearance) Assessed -Moisture (Sofiya-wound Skin Appearance) Assessed -Color (Sofiya-wound Skin Appearance) Assessed -Temperature (Sofiya-wound Skin No Abnormality Appearance) (Pt Warm) -Tenderness on Palpation (Sofiya-wound No Skin Appearance) -Ulcer Cleansing Rinsed/ Irrigated with Saline -Foul Odor after Cleansing No -Anesthetic Used 5% Lidocaine Gel -Wound Comment(s) therion and steristrips left in place 3M applied per Roland Randhawa Right Calf (cm) Right Ankle (cm) Left Calf (cm) 36 Left Ankle (cm) 20.8 06/04/22 06/07/22 06/11/22 08:39 13:10 08:37 Wound Center Nurse 1 #1 Left Lower Extremity -Combined with other wound No -Current Size (cm) - Length 2 0.1 -Current Size (cm) - Width 1 0.1 -Current Size (cm) - Depth 0.1 0.1 -Total Square Cm 2 0.01 -Photo Taken No -Tunneling No -Undermining/Tunneling No -Circular Undermining No -Change in Wound Grade/Stage No -Exudate Amt Small -Exudate Type Serosanguineous -Wound Margin Distinct, Distinct, Outline Outline Attached Attached -Granulation Amt Small (1-33%) -Granulation Quality [place] -Slough/Fibrin No -Necrosis Amt None Present (0 %) -Structure Exposed N/A -Texture (Sofiya-wound Skin Appearance) Assessed, No Abnormality Scarring -Moisture (Sofiya-wound Skin Appearance) No Abnormality, No Abnormality Assessed -Color (Sofiya-wound Skin Appearance) No Abnormality, No Abnormality Assessed -Temperature (Sofiya-wound Skin No Abnormality No Abnormality Appearance) (Pt Warm) (Pt Warm) -Tenderness on Palpation (Sofiya-wound No No Skin Appearance) -Ulcer Cleansing Soap and Water Soap and Water -Foul Odor after Cleansing No No -Anesthetic Used 5% Lidocaine Gel -Wound Comment(s) Right Calf (cm) 34.5 Right Ankle (cm) 22.2 Left Calf (cm) 35.6 Left Ankle (cm) 21 06/11/22 08:38 Nursing Note by Indira Dove on for one more week Initialized on 06/11/22 08:38 - END OF NOTE WC - Nurse 2 - General Ulcer CM Notes Start: 05/24/22 13:36 Freq: Status: Active Protocol: Activity Type Activity Date Activity User E-sign Co-sign Detail Recorded Client Recorded Date Recorded By Document 05/28/22 09:41 PL [id number] 09/06/22 09:43 PL Document 06/04/22 10:05 PL [id number] 06/04/22 10:07 PL Document 06/11/22 08:47 MW [id number] 06/11/22 08:48 MW 05/28/22 06/04/22 06/11/22 09:41 10:05 08:47 Wound Center Nurse 2 #1 Left Lower Extremity -Time 08:40 08:56 08:48 -Correct Patient Yes Yes Yes -Correct Side, Site, Position Yes Yes Yes -Correct Procedure Yes Yes Yes -Procedure Performed Yes Yes No -Type of Procedure Debridement Debridement -Clinical Debridement Subcutaneous Subcutaneous -Tissue Removed Subcutaneous Subcutaneous -Post Debridement (cm) - Length 0.2 1.8 -Post Debridement (cm) - Width 0.2 0.6 -Post Debridement (cm) - Depth 0.1 0.1 -Total Square (Post) (cm) 0.04 1.08 -Area of Debridement (cm) - Length 0.2 1.8 -Area of Debridement (cm) - Width 0.2 0.6 -Total Square (Area) (cm) 0.04 1.08 -Tunneling No No -Undermining/Tunneling No No -Circular Undermining No No -Wound/Ulcer Outcome Not Healed Not Healed Not Healed -Ulcer Cleansing Rinsed/ Rinsed/ Irrigated with Irrigated with Saline Saline -Foul Odor after Cleansing No No -Bioengineered Tissue Yes Yes -Type of Bioengineered Tissue Therion Therion -Expiration Date 08/27/23 08/27/23 -Product Lot Number [id number] -Percent Used 100 50 -Bleeding Controlled with Pressure Pressure -Treatment Response Procedure Procedure Not Tolerated Well Tolerated Well -Debridement - Subq, 1st 20sq cm No No -Apply Skin Sub - 1st 25 sq cm - Legs 1 1 -Therion (per sq cm) 16 4 Pain Scale: 0-10 Numeric Is Patient Pain Free? Yes Yes Yes WC - Nurse 3 - General Ulcer D/C NN Start: 05/24/22 13:36 Freq: Status: Active Protocol: Activity Type Activity Date Activity User E-sign Co-sign Detail Recorded Client Recorded Date Recorded By Document 05/24/22 13:36 KR [id number] 05/24/22 13:40 KR Document 05/28/22 09:41 PL [id number] 05/28/22 09:43 PL Document 05/31/22 12:35 RB [id number] 05/31/22 12:37 RB Document 06/04/22 11:24 KR [id number] 06/04/22 11:25 KR Document 06/07/22 13:10 DL [id number] 06/07/22 13:25 DL Document 06/11/22 08:53 DL [id number] 06/11/22 08:55 DL 05/24/22 05/28/22 05/31/22 13:36 09:41 12:35 Vital Signs Temperature (97.8 F-99.1 F) 98.2 F 96.6 F L Temperature Source Temporal Temporal Pulse Rate (60-100) 90 70 Pulse Location Monitor Monitor Respiratory Rate (12-18) 18 Respiratory rate source Observation Blood Pressure (90/60-120/80) 129/72 H 150/84 H Blood Pressure Mean 91 106 Source Monitor Monitor Position Semi-Fowlers Sitting Blood Pressure Location Left Arm Left Arm Pain Scale: 0-10 Numeric Is Patient Pain Free? Yes Yes Yes Wound Care Nurse 3 #1 Left Lower Extremity -Ulcer Cleansing Rinsed/ Irrigated with Saline -Foul Odor after Cleansing -Primary Dressing Applied Optilok 6.5x10 -Other Dressing abd pad -Primary Dressing Covered/Secured with -Other Covering -Optilok 6.5x10 1 Left -Lotion applied to leg before compression wrap -Multi-Layered Wrap Application Multi-Layer Multi-Layer Multi-Layer Comp - Left ($) Comp - Left ($) Comp - Left ($) Treatment Response Procedure Tolerated Well WC - Visit Discharge Discharge Condition Stable Stable Ambulatory Status Ambulatory, Ambulatory, Walker Walker Transportation Private Auto Private Auto Accompanied by Medication Reconcilliation completed & No provided to patient/care provider Clinical Summary of Care Provided Yes Notes: Facility Type Orders Sent 06/04/22 06/07/22 06/11/22 11:24 13:10 08:53 Vital Signs Temperature (97.8 F-99.1 F) 97.3 F L Temperature Source Temporal Pulse Rate (60-100) 78 Pulse Location Monitor Respiratory Rate (12-18) 18 Respiratory rate source Observation Blood Pressure (90/60-120/80) 125/70 H Blood Pressure Mean 88 Source Monitor Position Blood Pressure Location Pain Scale: 0-10 Numeric Is Patient Pain Free? Yes Yes Yes Wound Care Nurse 3 #1 Left Lower Extremity -Ulcer Cleansing Rinsed/ Irrigated with Saline -Foul Odor after Cleansing No -Primary Dressing Applied -Other Dressing hydrogel -Primary Dressing Covered/Secured with Dry Gauze, Secured with Tape -Other Covering Therion left in place today -Optilok 6.5x10 Left -Lotion applied to leg before Yes compression wrap -Multi-Layered Wrap Application Multi-Layer Multi-Layer Multi-Layer Comp - Left ($) Comp - Right ($ Comp - Left ($) ) Treatment Response Procedure Procedure Tolerated Well Tolerated Well WC - Visit Discharge Discharge Condition Stable Stable Stable Ambulatory Status Walker Ambulatory Ambulatory, Walker Transportation Private Auto Private Auto Private Auto Accompanied by [facility] Medication Reconcilliation completed & provided to patient/care provider Clinical Summary of Care Provided Notes: Dressing applied today per [employer]. 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: CODE(S): Z96.653 - Presence of artificial knee joint, bilateral (5) Hyperlipidemia: CODE(S): E78.5 - Hyperlipidemia, unspecified (6) Pacemaker: CODE(S): Z95.0 - Presence of cardiac pacemaker (7) Osteoporosis: CODE(S): M81.0 - Age-related osteoporosis without current pathological fracture (8) Osteoarthritis: CODE(S): M19.90 - Unspecified osteoarthritis, unspecified site (9) COPD (chronic obstructive pulmonary disease): CODE(S): J44.9 - Chronic obstructive pulmonary disease, unspecified (10) Chronic anticoagulation: CODE(S): Z79.01 - detention (current) use of anticoagulants (11) Atrial fibrillation: CODE(S): I48.91 - Unspecified atrial fibrillation (12) Hypertension: CODE(S): I10 - Essential (primary) hypertension (13) Obesity: CODE(S): E66.9 - Obesity, unspecified (14) History of breast cancer: CODE(S): Z85.3 - Personal history of malignant neoplasm of breast (15) Diabetes mellitus: CODE(S): E11.9 - Type 2 diabetes mellitus without complications (16) Dementia: CODE(S): F03.90 - Unspecified dementia without behavioral disturbance PLAN: Plan This is an 86-year-old female who presented with an ulceration on the left lateral supramalleolar area. Its etiology is uncertain, and the patient denied recent trauma to the area. There was noted to be associated swelling and edema. The patient has pre-existing medical problems, which have been listed above. The patient has been instructed to elevate her lower extremities as much as possible. Elevation is to be to heart level, or higher. This is to be accomplished during sleeping hours, as well as during daytime hours. She has been advised to refrain from prolonged idle sitting. Activity has been encouraged, though enhancement of activity is unlikely to a significant degree, as the patient requires a walker for ambulation. Swab cultures were obtained for aerobic and anaerobic bacterial growth. Cultures have been positive for P roteus mirabilis, Enterobacter cloacae, and and Serratia marcescens. The patient was placed on Bactrim double strength p.o. twice daily for total of 10 days, which has now been completed. A Therion allograft was placed 1 week ago, the 5th such allograft placement, and remains in place. The allograft was left in place today, and undisturbed. We are to apply collagen hydrogel and continue with a 3M 2 layer compression wrap, which will be changed weekly. Laboratory results have been obtained, with results as follows: Glucose 84, sodium 139, potassium 4.0, chloride 99, BUN 11, creatinine 0.58, calcium 9.2, albumin 3.8, total protein 6.4, AST 17, ALT 14, white blood count 5.8, hemoglobin 13.2, hematocrit 39.8, platelets 209,000. These laboratory results are from March 06, 2022. The patient has been encouraged to assure adequate oral nutritional intake. Patient is to return in 1 week for reassessment. Serial allograft placements are anticipated. Total time: 29 minutes
[2022-06-18 08:44] VITALS: BP 121/71; PULSE 73; TEMP 36.1
--- NOTE | 2022-06-18 15:15 | HP.PCM_ITS ---
History of Present Illness Date of Service: 06/18/22 Chief Complaint: Ulceration of the left lateral calf History of Wound: This is an 86-year-old female who presented with an ulceration of the left lateral calf. It is located in the left lateral supra-malleolar area. The patient is a resident of [facility] in [place], [place]. She is very pleasant, conversant, and cooperative. However, she suffers from dementia and is somewhat confused. She is a poor historian with r espect to her prior health. Fortunately, some records accompanied her, revealing elements of her past medical history. According the patient, the ulceration on her left lower extremity had been present for approximately 3 weeks. She denied any traumatic events. She stated that the ulceration was painful. She claims to sleep on a flat mattress at night. However, she is not very active, and spends a great deal of each day sitting. The accompanying medical records suggest that she has recently undergone a venous duplex examination, results of which revealed no evidence of acute deep vein t hrombosis, though valvular competence was not assessed. 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 Unspecified open wound, left lower leg, subsequent encounter Wound infection Home Medications Calcium 600 + D(3) See Rx Instructions .Route .COMPLEX 02/26/22 [History Last Taken Unknown] acetaminophen 650 mg tablet 650 mg PO Q4H PRN Pain 02/26/22 [History Last Taken Unknown] albuterol 90 mcg/actuation aerosol inhaler mcg inhalation 02/26/22 [History Last Taken Unknown] anastrozole 1 mg tablet 1 mg PO DAILY 02/26/22 [History Last Taken Unknown] donepezil 10 mg tablet 10 mg PO QHS 02/26/22 [History Last Taken Unknown] donepezil 10 mg tablet 10 mg PO QHS 02/26/22 [History Last Taken Unknown] famotidine 20 mg tablet 20 mg PO BID 02/26/22 [History Last Taken Unknown] ferrous sulfate 325 mg (65 mg iron) tablet (FeroSul) 325 mg PO DAILY 02/26/22 [History Last Taken Unknown] fluticasone 100 mcg-salmeterol 50 mcg/dose blistr powdr for inhalation (Advair Diskus) 1 inh inhalation BID 02/26/22 [History Last Taken Unknown] lovastatin 20 mg tablet 20 mg PO QPM 02/26/22 [History Last Taken Unknown] metoprolol succinate 25 mg capsule sprinkle, ext. release 24 hr 25 mg PO DAILY 02/26/22 [History Last Taken Unknown] pramipexole 1 mg tablet 1 mg PO BID 02/26/22 [History Last Taken Unknown] tramadol 50 mg tablet 50 mg PO Q8H PRN Pain 02/26/22 [History Last Taken Unknown] warfarin 2.5 mg tablet 2.5 mg PO DAILY 02/26/22 [History Last Taken Unknown] Vital Signs Vital Signs Vital Signs: 06/18/22 08:44 Temperature 96.9 F L Temperature Source Temporal Pulse Rate 73 Blood Pressure 121/71 H Blood Pressure Mean 87 Blood Pressure Source Monitor Blood Pressure Position Sitting Blood Pressure Location Right Arm Physical Exam Const alert, oriented x3, no apparent distress and well nourished Constitutional Narrative: The patient is lucid today. General Appearance: cooperative, comfortable, well kempt and well developed Orientation / Consciousness: awake, oriented to person, oriented to place and oriented to time HEENT normocephalic, head/scalp atraumatic and hearing grossly normal bilaterally Head and Scalp: normal to inspection, normocephalic and atraumatic External Ear: external ears normal Eyes PERRL and EOMs intact bilaterally General Eye: normal appearance of both eyes Resp normal respiratory effort, normal air movement, no retractions and no use of accessory muscles Effort and Inspection: able to speak in complete sentences Extremity no calf tenderness General Extremity: Negative for clubbing or cyanosis Skin Wound Narrative: The wound on the left lateral calf is totally healed. Periwound erythema has resolved. Swelling and edema in the left lower extremity appear to be minimal. Lipodermatosclerosis and hyperpigmentation are noted in the left gaiter area. Neuro oriented x3, CN's II-XII intact bilaterally, moves all extremities and no focal motor deficits Sensorium / Orientation: awake, alert, oriented to person, oriented to place and oriented to time Psych Appearance: grossly normal and appropriate Attitude: calm Activity / Motor Behavior: appropriate eye contact Speech: normal speech Mood & Affect: euthymic mood Thought Process: normal thought process Thought Content: normal thought content Attention / Concentration: attention grossly intact Debridement Note Debridement Note Wound debrided: Left lateral calf Laterality: Left Type of Debridement: Selective debridement Anesthesia Used: 5% Lidocaine Gel Depth: Down to and including healthy tissue Percentage of wound debrided: 100 Instrument Used: 3mm curette Tissue Removed: Residual allograft Amount of bleeding with debridement: None Patient tolerated procedure: Patient tolerated procedure well No debridement was completed: No debridement was completed today (The patient's ulceration is now completely healed.) Post-Debridement Measurements and Additional Note: Post-Debridement Measurements/Treatment - Nurse 1 - General Ulcer Assessment Start: 05/24/22 13:36 Freq: Status: Active Protocol: LAKSHMI Activity Type Activity Date Activity User E-sign Co-sign Detail Recorded Client Recorded Date Recorded By Document 05/24/22 13:36 KR [id number] 05/24/22 13:40 KR Document 05/28/22 08:36 ML [id number] 05/28/22 08:38 ML Document 05/31/22 12:35 RB [id number] 05/31/22 12:37 RB Document 06/04/22 08:39 KR [id number] 06/04/22 08:46 KR Document 06/07/22 13:10 DL [id number] 06/07/22 13:25 DL Document 06/11/22 08:37 DL [id number] 06/11/22 08:39 DL Document 06/18/22 08:44 KR [id number] 06/18/22 08:45 KR 05/24/22 05/28/22 05/31/22 13:36 08:36 12:35 - Today's Visit Information Type of service Nurse-only Follow-up Visit Nurse-only Visit (Physician/CLINICAL INFORMATICS MANAGER Visit ) Arrival Mode Ambulatory, Walker Ambulatory, Walker Walker Transfer Assistance None None Patient Identification Verified (Name & Yes Yes Yes ) Patient Requires Transmission-Based No No Precautions Safety Precautions NA Vital Signs Temperature (97.8 F-99.1 F) 98.2 F 96.8 F L 96.6 F L Temperature Source Temporal Temporal Temporal Pulse Rate (60-100) 90 82 70 Pulse Location Monitor Monitor Monitor Respiratory Rate (12-18) 16 18 Respiratory rate source Observation Blood Pressure (90/60-120/80) 129/72 H 150/82 H 150/84 H Blood Pressure Mean 91 104 106 Source Monitor Monitor Monitor Position Semi-Fowlers Sitting Sitting Blood Pressure Location Left Arm Left Arm Left Arm History Since Last Visit- (Skip if this is Patient's initial visit) Have you changed medications since your No No No last visit? Any new allergies or adverse reactions No No No Had a fall/change in ADL's that may No No No increase risk of falls Signs or symptoms of abuse and/or No No No neglect since last visit Have you been in the hospital since your No No No last visit? Has dressing in place as prescribed Yes No Yes Has compression in place as prescribed Yes N/A Yes Has offloadiing in place as prescribed N/A N/A No Experienced any changes in pain level or No No No management Left Footwear Regular Shoe Regular Shoe Right Footwear Regular Shoe Regular Shoe Pain Scale: 0-10 Numeric Is Patient Pain Free? Yes Yes Yes 06/04/22 06/07/22 06/11/22 08:39 13:10 08:37 WC - Today's Visit Information Type of service Follow-up Visit Nurse-only Follow-up Visit (Physician/CLINICAL INFORMATICS MANAGER Visit (Physician/CLINICAL INFORMATICS MANAGER ) ) Arrival Mode Ambulatory, Ambulatory, Ambulatory, Walker Walker Walker Transfer Assistance None Patient Identification Verified (Name & Yes Yes Yes ) Patient Requires Transmission-Based No Precautions Safety Precautions Vital Signs Temperature (97.8 F-99.1 F) 97.0 F L 97.3 F L 97.2 F L Temperature Source Temporal Temporal Temporal Pulse Rate (60-100) 88 78 89 Pulse Location Monitor Monitor Monitor Respiratory Rate (12-18) 18 Respiratory rate source Observation Blood Pressure (90/60-120/80) 113/83 H 125/70 H 113/62 Blood Pressure Mean 93 88 79 Source Monitor Monitor Monitor Position Semi-Fowlers Semi-Fowlers Blood Pressure Location Left Arm Right Arm History Since Last Visit- (Skip if this is Patient's initial visit) Have you changed medications since your No No No last visit? Any new allergies or adverse reactions No No No Had a fall/change in ADL's that may No No No increase risk of falls Signs or symptoms of abuse and/or No No No neglect since last visit Have you been in the hospital since your No last visit? Has dressing in place as prescribed Yes Yes Yes Has compression in place as prescribed Yes Yes Yes Has offloadiing in place as prescribed N/A N/A N/A Experienced any changes in pain level or No No No management Left Footwear Regular Shoe Regular Shoe Right Footwear Regular Shoe Regular Shoe Pain Scale: 0-10 Numeric Is Patient Pain Free? Yes Yes Yes 06/18/22 08:44 - Today's Visit Information Type of service Follow-up Visit (Physician/CLINICAL INFORMATICS MANAGER ) Arrival Mode Ambulatory, Walker Transfer Assistance Patient Identification Verified (Name & Yes ) Patient Requires Transmission-Based Precautions Safety Precautions Vital Signs Temperature (97.8 F-99.1 F) 96.9 F L Temperature Source Temporal Pulse Rate (60-100) 73 Pulse Location Monitor Respiratory Rate (12-18) Respiratory rate source Blood Pressure (90/60-120/80) 121/71 H Blood Pressure Mean 87 Source Monitor Position Sitting Blood Pressure Location Right Arm History Since Last Visit- (Skip if this is Patient's initial visit) Have you changed medications since your No last visit? Any new allergies or adverse reactions No Had a fall/change in ADL's that may No increase risk of falls Signs or symptoms of abuse and/or No neglect since last visit Have you been in the hospital since your No last visit? Has dressing in place as prescribed Yes Has compression in place as prescribed Yes Has offloadiing in place as prescribed N/A Experienced any changes in pain level or No management Left Footwear Regular Shoe Right Footwear Regular Shoe Pain Scale: 0-10 Numeric Is Patient Pain Free? Yes - Nurse 1 - General Ulcer Measurement Start: 05/24/22 13:36 Freq: Status: Active Protocol: Activity Type Activity Date Activity User E-sign Co-sign Detail Recorded Client Recorded Date Recorded By Document 05/24/22 13:36 KR [id number] 05/24/22 13:40 KR Document 05/28/22 08:36 ML [id number] 05/28/22 08:38 ML Document 05/31/22 12:35 RB [id number] 05/31/22 12:37 RB Document 06/04/22 08:39 KR [id number] 06/04/22 08:46 KR Document 06/07/22 13:10 DL [id number] 06/07/22 13:25 DL Document 06/11/22 08:37 DL [id number] 06/11/22 08:39 DL Document 06/18/22 08:44 KR [id number] 06/18/22 08:45 KR 05/24/22 05/28/22 05/31/22 13:36 08:36 12:35 Wound Center Nurse 1 #1 Left Lower Extremity -Combined with other wound -Current Size (cm) - Length 0.2 -Current Size (cm) - Width 0.2 -Current Size (cm) - Depth 0.1 -Total Square Cm 0.04 -Photo Taken -Tunneling -Undermining/Tunneling -Circular Undermining -Change in Wound Grade/Stage -Exudate Amt None Present -Exudate Type -Wound Margin Distinct, Outline Attached -Granulation Amt None Present (0 %) -Granulation Quality -Slough/Fibrin No -Necrosis Amt None Present (0 %) -Structure Exposed -Texture (Sofiya-wound Skin Appearance) Assessed -Moisture (Sofiya-wound Skin Appearance) Assessed -Color (Sofiya-wound Skin Appearance) Assessed -Temperature (Sofiya-wound Skin No Abnormality Appearance) (Pt Warm) -Tenderness on Palpation (Sofiya-wound No Skin Appearance) -Ulcer Cleansing Rinsed/ Irrigated with Saline -Foul Odor after Cleansing No -Anesthetic Used 5% Lidocaine Gel -Wound Comment(s) therion and steristrips left in place 3M applied per Roland Randhawa Right Calf (cm) Right Ankle (cm) Left Calf (cm) 36 Left Ankle (cm) 20.8 06/04/22 06/07/22 06/11/22 08:39 13:10 08:37 Wound Center Nurse 1 #1 Left Lower Extremity -Combined with other wound No -Current Size (cm) - Length 2 0.1 -Current Size (cm) - Width 1 0.1 -Current Size (cm) - Depth 0.1 0.1 -Total Square Cm 2 0.01 -Photo Taken No -Tunneling No -Undermining/Tunneling No -Circular Undermining No -Change in Wound Grade/Stage No -Exudate Amt Small -Exudate Type Serosanguineous -Wound Margin Distinct, Distinct, Outline Outline Attached Attached -Granulation Amt Small (1-33%) -Granulation Quality [place] -Slough/Fibrin No -Necrosis Amt None Present (0 %) -Structure Exposed N/A -Texture (Sofiya-wound Skin Appearance) Assessed, No Abnormality Scarring -Moisture (Sofiya-wound Skin Appearance) No Abnormality, No Abnormality Assessed -Color (Sofiya-wound Skin Appearance) No Abnormality, No Abnormality Assessed -Temperature (Sofiya-wound Skin No Abnormality No Abnormality Appearance) (Pt Warm) (Pt Warm) -Tenderness on Palpation (Sofiya-wound No No Skin Appearance) -Ulcer Cleansing Soap and Water Soap and Water -Foul Odor after Cleansing No No -Anesthetic Used 5% Lidocaine Gel -Wound Comment(s) Right Calf (cm) 34.5 Right Ankle (cm) 22.2 Left Calf (cm) 35.6 Left Ankle (cm) 21 06/18/22 08:44 Wound Center Nurse 1 #1 Left Lower Extremity -Combined with other wound -Current Size (cm) - Length 3 -Current Size (cm) - Width 1 -Current Size (cm) - Depth 0.1 -Total Square Cm 3 -Photo Taken -Tunneling -Undermining/Tunneling -Circular Undermining -Change in Wound Grade/Stage -Exudate Amt None Present -Exudate Type -Wound Margin Distinct, Outline Attached -Granulation Amt Small (1-33%) -Granulation Quality [place] -Slough/Fibrin -Necrosis Amt None Present (0 %) -Structure Exposed -Texture (Sofiya-wound Skin Appearance) Assessed, Scarring -Moisture (Sofiya-wound Skin Appearance) No Abnormality, Assessed -Color (Sofiya-wound Skin Appearance) No Abnormality, Assessed -Temperature (Sofiya-wound Skin No Abnormality Appearance) (Pt Warm) -Tenderness on Palpation (Sofiya-wound No Skin Appearance) -Ulcer Cleansing Soap and Water -Foul Odor after Cleansing No -Anesthetic Used 5% Lidocaine Gel -Wound Comment(s) Right Calf (cm) Right Ankle (cm) Left Calf (cm) 37.1 Left Ankle (cm) 22.6 06/11/22 08:38 Nursing Note by Indira Dove on for one more week Initialized on 06/11/22 08:38 - END OF NOTE WC - Nurse 2 - General Ulcer CM Notes Start: 05/24/22 13:36 Freq: Status: Active Protocol: Activity Type Activity Date Activity User E-sign Co-sign Detail Recorded Client Recorded Date Recorded By Document 05/28/22 09:41 PL [id number] 05/28/22 09:43 PL Document 06/04/22 10:05 PL [id number] 06/04/22 10:07 PL Document 06/11/22 08:47 MW [id number] 06/11/22 08:48 MW Document 06/18/22 09:46 PL [id number] 06/18/22 09:47 PL 05/28/22 06/04/22 06/11/22 09:41 10:05 08:47 Wound Center Nurse 2 #1 Left Lower Extremity -Time 08:40 08:56 08:48 -Correct Patient Yes Yes Yes -Correct Side, Site, Position Yes Yes Yes -Correct Procedure Yes Yes Yes -Procedure Performed Yes Yes No -Type of Procedure Debridement Debridement -Clinical Debridement Subcutaneous Subcutaneous -Tissue Removed Subcutaneous Subcutaneous -Post Debridement (cm) - Length 0.2 1.8 -Post Debridement (cm) - Width 0.2 0.6 -Post Debridement (cm) - Depth 0.1 0.1 -Total Square (Post) (cm) 0.04 1.08 -Area of Debridement (cm) - Length 0.2 1.8 -Area of Debridement (cm) - Width 0.2 0.6 -Total Square (Area) (cm) 0.04 1.08 -Tunneling No No -Undermining/Tunneling No No -Circular Undermining No No -Wound/Ulcer Outcome Not Healed Not Healed Not Healed -Ulcer Cleansing Rinsed/ Rinsed/ Irrigated with Irrigated with Saline Saline -Foul Odor after Cleansing No No -Bioengineered Tissue Yes Yes -Type of Bioengineered Tissue Therion Therion -Expiration Date 08/27/23 08/27/23 -Product Lot Number [id number] -Percent Used 100 50 -Bleeding Controlled with Pressure Pressure -Treatment Response Procedure Procedure Not Tolerated Well Tolerated Well -Debridement - Subq, 1st 20sq cm No No -Apply Skin Sub - 1st 25 sq cm - Legs 1 1 -Therion (per sq cm) 16 4 Pain Scale: 0-10 Numeric Is Patient Pain Free? Yes Yes Yes 06/18/22 09:46 Wound Center Nurse 2 #1 Left Lower Extremity -Time 09:01 -Correct Patient -Correct Side, Site, Position -Correct Procedure -Procedure Performed No -Type of Procedure -Clinical Debridement -Tissue Removed -Post Debridement (cm) - Length -Post Debridement (cm) - Width -Post Debridement (cm) - Depth -Total Square (Post) (cm) -Area of Debridement (cm) - Length -Area of Debridement (cm) - Width -Total Square (Area) (cm) -Tunneling -Undermining/Tunneling -Circular Undermining -Wound/Ulcer Outcome Healed- Epithelialized -Ulcer Cleansing -Foul Odor after Cleansing -Bioengineered Tissue -Type of Bioengineered Tissue -Expiration Date -Product Lot Number -Percent Used -Bleeding Controlled with -Treatment Response -Debridement - Subq, 1st 20sq cm -Apply Skin Sub - 1st 25 sq cm - Legs -Therion (per sq cm) Pain Scale: 0-10 Numeric Is Patient Pain Free? Yes WC - Nurse 3 - General Ulcer D/C NN Start: 05/24/22 13:36 Freq: Status: Active Protocol: Activity Type Activity Date Activity User E-sign Co-sign Detail Recorded Client Recorded Date Recorded By Document 05/24/22 13:36 KR [id number] 05/24/22 13:40 KR Document 05/28/22 09:41 PL [id number] 05/28/22 09:43 PL Document 05/31/22 12:35 RB [id number] 05/31/22 12:37 RB Document 06/04/22 11:24 KR [id number] 06/04/22 11:25 KR Document 06/07/22 13:10 DL [id number] 06/07/22 13:25 DL Document 06/11/22 08:53 DL [id number] 06/11/22 08:55 DL Document 06/18/22 09:11 DL [id number] 09/27/22 09:14 DL 05/24/22 05/28/22 05/31/22 13:36 09:41 12:35 Vital Signs Temperature (97.8 F-99.1 F) 98.2 F 96.6 F L Temperature Source Temporal Temporal Pulse Rate (60-100) 90 70 Pulse Location Monitor Monitor Respiratory Rate (12-18) 18 Respiratory rate source Observation Blood Pressure (90/60-120/80) 129/72 H 150/84 H Blood Pressure Mean 91 106 Source Monitor Monitor Position Semi-Fowlers Sitting Blood Pressure Location Left Arm Left Arm Pain Scale: 0-10 Numeric Is Patient Pain Free? Yes Yes Yes Wound Care Nurse 3 #1 Left Lower Extremity -Ulcer Cleansing Rinsed/ Irrigated with Saline -Foul Odor after Cleansing -Primary Dressing Applied Optilok 6.5x10 -Other Dressing abd pad -Primary Dressing Covered/Secured with -Other Covering -Optilok 6.5x10 1 Left -Lotion applied to leg before compression wrap -Multi-Layered Wrap Application Multi-Layer Multi-Layer Multi-Layer Comp - Left ($) Comp - Left ($) Comp - Left ($) -Tubular Bandage -Size of Tubigrip Used -Size D ($) Treatment Response Procedure Tolerated Well WC - Visit Discharge Discharge Condition Stable Stable Ambulatory Status Ambulatory, Ambulatory, Walker Walker Transportation Private Auto Private Auto Accompanied by Medication Reconcilliation completed & No provided to patient/care provider Clinical Summary of Care Provided Yes Notes: Facility Type Notes: Orders Sent 06/04/22 06/07/22 06/11/22 11:24 13:10 08:53 Vital Signs Temperature (97.8 F-99.1 F) 97.3 F L Temperature Source Temporal Pulse Rate (60-100) 78 Pulse Location Monitor Respiratory Rate (12-18) 18 Respiratory rate source Observation Blood Pressure (90/60-120/80) 125/70 H Blood Pressure Mean 88 Source Monitor Position Blood Pressure Location Pain Scale: 0-10 Numeric Is Patient Pain Free? Yes Yes Yes Wound Care Nurse 3 #1 Left Lower Extremity -Ulcer Cleansing Rinsed/ Irrigated with Saline -Foul Odor after Cleansing No -Primary Dressing Applied -Other Dressing hydrogel -Primary Dressing Covered/Secured with Dry Gauze, Secured with Tape -Other Covering Therion left in place today -Optilok 6.5x10 Left -Lotion applied to leg before Yes compression wrap -Multi-Layered Wrap Application Multi-Layer Multi-Layer Multi-Layer Comp - Left ($) Comp - Right ($ Comp - Left ($) ) -Tubular Bandage -Size of Tubigrip Used -Size D ($) Treatment Response Procedure Procedure Tolerated Well Tolerated Well WC - Visit Discharge Discharge Condition Stable Stable Stable Ambulatory Status Walker Ambulatory Ambulatory, Walker Transportation Private Auto Private Auto Private Auto Accompanied by [facility] Medication Reconcilliation completed & provided to patient/care provider Clinical Summary of Care Provided Notes: Dressing applied today per [employer]. Facility Type [facility] Facility Notes: Orders Sent Yes Yes 06/18/22 09:11 Vital Signs Temperature (97.8 F-99.1 F) Temperature Source Pulse Rate (60-100) Pulse Location Respiratory Rate (12-18) Respiratory rate source Blood Pressure (90/60-120/80) Blood Pressure Mean Source Position Blood Pressure Location Pain Scale: 0-10 Numeric Is Patient Pain Free? Yes Wound Care Nurse 3 #1 Left Lower Extremity -Ulcer Cleansing Rinsed/ Irrigated with Saline -Foul Odor after Cleansing No -Primary Dressing Applied C Hydrogel ($) -Other Dressing -Primary Dressing Covered/Secured with Dry Gauze & Roll Gauze, Secured with Tape -Other Covering -Optilok 6.5x10 Left -Lotion applied to leg before compression wrap -Multi-Layered Wrap Application -Tubular Bandage Single Layer -Size of Tubigrip Used Size D -Size D ($) 1 Treatment Response Procedure Tolerated Well WC - Visit Discharge Discharge Condition Stable Ambulatory Status Ambulatory Transportation [facility] Accompanied by Medication Reconcilliation completed & provided to patient/care provider Clinical Summary of Care Provided Notes: Facility Type [facility] Notes: Healed/ Discharged. Orders Sent Yes Assessment/Plan Assessment/Plan (1) Non-pressure ulcer of left lower extremity: CODE(S): L97.929 - Non-pressure chronic ulcer of unspecified part of left lower leg with unspecified severity QUALIFIERS: Non-pressure ulcer stage: with fat layer exposed Qualified Code(s): L97.922 - Non-pressure chronic ulcer of unspecified part of left lower leg with fat layer exposed (2) Unspecified open wound, left lower leg, subsequent encounter: CODE(S): S81.802D - Unspecified open wound, left lower leg, subsequent encounter (3) Nonhealing nonsurgical wound with fat layer exposed: CODE(S): T14.8XXA - Other injury of unspecified body region, initial encounter (4) 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: CODE(S): Z96.653 - Presence of artificial knee joint, bilateral (5) Hyperlipidemia: CODE(S): E78.5 - Hyperlipidemia, unspecified (6) Pacemaker: CODE(S): Z95.0 - Presence of cardiac pacemaker (7) Osteoporosis: CODE(S): M81.0 - Age-related osteoporosis without current pathological fracture (8) Osteoarthritis: CODE(S): M19.90 - Unspecified osteoarthritis, unspecified site (9) COPD (chronic obstructive pulmonary disease): CODE(S): J44.9 - Chronic obstructive pulmonary disease, unspecified (10) Chronic anticoagulation: CODE(S): Z79.01 - intermediate project manager (current) use of anticoagulants (11) Atrial fibrillation: CODE(S): I48.91 - Unspecified atrial fibrillation (12) Hypertension: CODE(S): I10 - Essential (primary) hypertension (13) Obesity: CODE(S): E66.9 - Obesity, unspecified (14) History of breast cancer: CODE(S): Z85.3 - Personal history of malignant neoplasm of breast (15) Diabetes mellitus: CODE(S): E11.9 - Type 2 diabetes mellitus without complications (16) Dementia: CODE(S): F03.90 - Unspecified dementia without behavioral disturbance PLAN: Plan This is an 86-year-old female who presented with an ulceration on the left lateral supramalleolar area. Its etiology was uncertain, and the patient denied recent trauma to the area. There was noted to be associated swelling and edema. The patient has pre-existing medical problems, which have been listed above. The patient was instructed to elevate her lower extremities as much as possible. Elevation was to be to heart level, or higher. This was to be accomplished during sleeping hours, as well as during daytime hours. She has been advised to refrain from prolonged idle sitting. Activity has been encouraged, though enhancement of activity is unlikely to a significant degree, as the patient requires a walker for ambulation. Swab cultures were obtained for aerobic and anaerobic bacterial growth. Cultures have been positive for Proteus mirabilis, Enterobacter cloacae, and and Serratia marcescens. The patient was placed on Bactrim double strength p.o. twice daily for total of 10 days, which has now been completed. A Therion allograft was placed several weeks ago, the 5th such allograft placement. As of today's visit, the ulceration on the left lateral calf is completely healed and epithelialized. We are to apply collagen hydrogel today, and the patient has been instructed to do so for 1 more week. Tubigrip's have been dispensed, and are to be utilized on a daily basis for the next 2 weeks. The patient will be discharged, and will follow-up henceforth on an as- needed basis. Total time: 28 minutes
== END 2022-06-18 15:52 | disposition home or self-care (01) ==
LOC: WC 08:30
PROVIDERS: PCP Internal Medicine; Visit Provider Surgery
DX: E11.622 Type 2 diabetes mellitus with other skin ulcer (principal); L97.222 Non-pressure chronic ulcer of left calf with fat layer exposed; F03.90 Unspecified dementia, unspecified severity, without behavioral disturbance, psychotic disturbance, mood disturbance, and anxiety; J44.9 Chronic obstructive pulmonary disease, unspecified; I48.91 Unspecified atrial fibrillation; E66.9 Obesity, unspecified; Z96.653 Presence of artificial knee joint, bilateral; M19.90 Unspecified osteoarthritis, unspecified site; Z95.0 Presence of cardiac pacemaker; Z79.01 Long term (current) use of anticoagulants; I10 Essential (primary) hypertension; E78.5 Hyperlipidemia, unspecified; M81.0 Age-related osteoporosis without current pathological fracture; Z79.899 Other long term (current) drug therapy; Z79.51 Long term (current) use of inhaled steroids
CPT/HCPCS: 15271; 29581; 99212; 99213; Q4176; G0463